=== PATIENT | female | born 1990 | race Caucasian/White ===

== ENCOUNTER → 2021-06-13 09:15 | Outpatient (CLI) | payer OTHER, SELFPAY ==
[2021-06-13 12:15] LABS: Absolute Lymphocyte Count 1.58 X10^3/uL (0.83-4.51); Absolute Neutrophil Count 1.9 X10^3/uL (2.0-7.7); Basophil# 0.04 X10^3/uL; Eosinophil# 0.07 X10^3/uL; Eosinophils% 1.8 % (0-5); Hematocrit 38.8 % (37-47); Hemoglobin 11.7 g/dL (12.0-15.0); Lymphocyte # 1.58 X10^3/ul (0.83-4.51); Lymphocyte % 39.6 % (19-41); Mean Corp Hgb Conc 30.2 g/dL (32-36); Mean Corpuscular Hgb 25.4 pg (27.0-32.0); Mean Corpuscular Volume 84.3 fL (81-99); Monocyte# 0.42 X10^3/uL; Monocyte% 10.5 % (0-10); NRBC Flagged by Analyzer 0 % (0-5); Neutrophil # 1.87 X10^3/uL (2.7-7.7); Neutrophil % 46.8 % (47-70); Platelet Count 273 K/mm3 (150-450); RBC Distribution Width CV 14.6 % (11.6-14.6); RBC Distribution Width SD 45.1 fl (35.1-43.9)
[2021-06-13 12:37] LABS: ALB/GLOB Ratio 1.2 RATIO (0.9-2.4); AST(SGOT) 16 U/L (15-37); Alanine Aminotransfer ALT/SGPT 26 U/L (13-56); Albumin, Serum 4.1 g/dL (3.2-5.0); Alkaline Phosphatase 67 U/L (45-117); Anion Gap 6 (5-15); BUN 12 mg/dL (7-18); BUN/Creat Ratio 17.8 RATIO (10-20); Calcium,Total 8.4 mg/dL (8.5-10.1); Chloride 106 mmol/L (98-107); Cholesterol 182 mg/dL (200); Creatinine, Serum 0.68 mg/dL (0.55-1.02); EST Glomerular Filtration Rate 110 mL/min (>60); Est Glom Filt Rate - Afr Amer 133 mL/min (>60); Globulin 3.4 g/dL (2.2-4.2); Glucose 88 mg/dL (74-106); High Density Lipoprotein 78 mg/dL; Potassium 4.3 mmol/L (3.5-5.1); Protein, Total 7.5 g/dL (6.4-8.2); Sodium Level 138 mmol/L (136-145); Triglycerides 33 mg/dL; Very Low Density Lipoprotein 7 mg/dL (5-40)
== END ==
PROVIDERS: PCP Internal Medicine; Referring Provider Internal Medicine; Visit Provider Internal Medicine
DX: Z00.00 Encounter for general adult medical examination without abnormal findings (principal)
CPT/HCPCS: 36415; 80053; 80061; 85025

== ENCOUNTER → 2022-04-25 | Outpatient (CLI) | payer OTHER, SELFPAY ==
[2022-04-25 12:39] LABS: Alanine Aminotransfer ALT/SGPT 20 U/L (13-56)
[2022-04-25 13:02] LABS: HIV - WCH Non-Reactive (Nonreactive); Hepatitis B Surface Antibody Non-Reactive; Hepatitis C Antibody Non-Reactive (Nonreactive)
== END | disposition home or self-care (01) ==
LOC: MTLAB 09:31
PROVIDERS: PCP Internal Medicine; Referring Provider Physician Assistant; Visit Provider Physician Assistant
DX: S61.231A Puncture wound without foreign body of left index finger without damage to nail, initial encounter (principal); W46.1XXA Contact with contaminated hypodermic needle, initial encounter
CPT/HCPCS: 36415; 84460; 86703; 86706; 86803

== ENCOUNTER → 2023-08-25 | Outpatient (CLI) | payer OTHER, SELFPAY ==
[2023-08-25 12:17] LABS: Absolute Lymphocyte Count 1.58 X10^3/uL (0.83-4.51); Absolute Neutrophil Count 2.5 X10^3/uL (2.0-7.7); Basophil# 0.04 X10^3/uL; Basophil% 0.9 % (0-1); Eosinophil# 0.06 X10^3/uL; Eosinophils% 1.3 % (0-5); Hematocrit 37.4 % (37-47); Hemoglobin 11.3 g/dL (12.0-15.0); Lymphocyte # 1.58 X10^3/ul (0.83-4.51); Lymphocyte % 34.1 % (19-41); Mean Corp Hgb Conc 30.2 g/dL (32-36); Mean Corpuscular Hgb 26.2 pg (27.0-32.0); Mean Corpuscular Volume 86.8 fL (81-99); Mean Platelet Vol. 11.1 fl (6.2-12.0); Monocyte# 0.43 X10^3/uL; Monocyte% 9.3 % (0-10); NRBC Flagged by Analyzer 0 % (0-5); Neutrophil # 2.52 X10^3/uL (2.7-7.7); Neutrophil % 54.2 % (47-70); Platelet Count 218 K/mm3 (150-450); RBC Distribution Width CV 14.4 % (11.6-14.6); RBC Distribution Width SD 45.9 fl (35.1-43.9); Red Blood Count 4.31 M/mm3 (4.2-5.4); White Blood Count 4.6 K/mm3 (4.4-11.0)
[2023-08-25 12:31] LABS: ALB/GLOB Ratio 1.1 RATIO (0.9-2.4); AST(SGOT) 16 U/L (15-37); Alanine Aminotransfer ALT/SGPT 20 U/L (13-56); Albumin, Serum 3.6 g/dL (3.2-5.0); Alkaline Phosphatase 63 U/L (45-117); Anion Gap 5 (5-15); BUN 10 mg/dL (7-18); BUN/Creat Ratio 13.5 RATIO (10-20); Calcium,Total 8.1 mg/dL (8.5-10.1); Chloride 107 mmol/L (98-107); Creatinine, Serum 0.74 mg/dL (0.55-1.02); EST Glomerular Filtration Rate 97 mL/min (>60); Est Glom Filt Rate - Afr Amer 118 mL/min (>60); Globulin 3.4 g/dL (2.2-4.2); Glucose 95 mg/dL (74-106); Sodium Level 140 mmol/L (136-145)
== END | disposition home or self-care (01) ==
LOC: BIMLAB 10:22
PROVIDERS: PCP Internal Medicine; Referring Provider Internal Medicine; Visit Provider Internal Medicine
DX: Z00.00 Encounter for general adult medical examination without abnormal findings (principal); E83.51 Hypocalcemia
CPT/HCPCS: 36415; 80053; 82306; 85025

== ENCOUNTER → 2023-12-03 | Outpatient (CLI) | payer OTHER, SELFPAY ==
[2023-12-09 11:09] LABS: HPV APTIMA, High Risk Negative (Negative)
== END | disposition home or self-care (01) ==
PROVIDERS: PCP Internal Medicine; Referring Provider Nurse Practitioner Women's Health; Visit Provider Nurse Practitioner Women's Health
DX: Z12.4 Encounter for screening for malignant neoplasm of cervix (principal)
CPT/HCPCS: 87624; 88175; G0145

== ENCOUNTER → 2024-08-27 | Outpatient (CLI) | payer SELFPAY ==
[2024-08-27 12:31] LABS: Absolute Lymphocyte Count 1.42 X10^3/uL (0.83-4.51); Absolute Neutrophil Count 4.7 X10^3/uL (2.0-7.7); Basophil# 0.04 X10^3/uL; Basophil% 0.6 % (0-1); Eosinophil# 0.06 X10^3/uL; Eosinophils% 0.9 % (0-5); Hematocrit 39.7 % (37-47); Hemoglobin 12.8 g/dL (12.0-15.0); Lymphocyte # 1.42 X10^3/ul (0.83-4.51); Lymphocyte % 20.7 % (19-41); Mean Corp Hgb Conc 32.2 g/dL (32-36); Mean Corpuscular Hgb 28.7 pg (27.0-32.0); Mean Platelet Vol. 11.2 fl (6.2-12.0); Monocyte# 0.59 X10^3/uL; Monocyte% 8.6 % (0-10); NRBC Flagged by Analyzer 0 % (0-5); Neutrophil % 68.6 % (47-70); Platelet Count 237 K/mm3 (150-450); RBC Distribution Width CV 13.2 % (11.6-14.6); RBC Distribution Width SD 43.2 fl (35.1-43.9); Red Blood Count 4.46 M/mm3 (4.2-5.4); White Blood Count 6.9 K/mm3 (4.4-11.0)
[2024-08-27 12:35] LABS: Anion Gap 6 (5-15); BUN 8 mg/dL (7-18); BUN/Creat Ratio 11.9 RATIO (10-20); Chloride 103 mmol/L (98-107); Creatinine, Serum 0.67 mg/dL (0.55-1.02); EST Glomerular Filtration Rate 108 mL/min (>60); Est Glom Filt Rate - Afr Amer 131 mL/min (>60); Glucose 87 mg/dL (74-106); Potassium 3.9 mmol/L (3.5-5.1); Sodium Level 136 mmol/L (136-145)
[2024-08-27 13:06] LABS: HIV - WCH Non-Reactive (Nonreactive); Hepatitis B Surface Antigen Non-Reactive (Nonreactive); Hepatitis C Antibody Non-Reactive (Nonreactive); Rubella IgG Reactive (Nonreactive); Syphilis Antibodies Non-reactive
[2024-08-30 21:07] LABS: Chlamydia By Nucleic Acid AMP Negative (Negative); Gonococcus By Nucleic Acid AMP Negative (Negative)
== END | disposition home or self-care (01) ==
LOC: BWCLAB 09:18
PROVIDERS: PCP Internal Medicine; Referring Provider Registered Nurse; Visit Provider Registered Nurse
DX: Z34.90 Encounter for supervision of normal pregnancy, unspecified, unspecified trimester (principal); Z3A.00 Weeks of gestation of pregnancy not specified
CPT/HCPCS: 36415; 80048; 85025; 86703; 86762; 86780; 86803; 86850; 86900; 86901; 87086; 87340; 87491; 87591

== ENCOUNTER → 2025-01-04 | Outpatient (CLI) | payer SELFPAY ==
[2025-01-04 17:04] LABS: Absolute Lymphocyte Count 1.46 X10^3/uL (0.83-4.51); Absolute Neutrophil Count 6.9 X10^3/uL (2.0-7.7); Basophil# 0.03 X10^3/uL; Basophil% 0.3 % (0-1); Eosinophil# 0.08 X10^3/uL; Eosinophils% 0.9 % (0-5); Hemoglobin 12.6 g/dL (12.0-15.0); Lymphocyte # 1.46 X10^3/ul (0.83-4.51); Mean Corp Hgb Conc 33.2 g/dL (32-36); Mean Corpuscular Hgb 30.6 pg (27.0-32.0); Mean Corpuscular Volume 92.2 fL (81-99); Mean Platelet Vol. 10.4 fl (6.2-12.0); Monocyte# 0.54 X10^3/uL; Monocyte% 5.9 % (0-10); NRBC Flagged by Analyzer 0 % (0-5); Neutrophil # 6.93 X10^3/uL (2.7-7.7); Neutrophil % 76.2 % (47-70); Platelet Count 224 K/mm3 (150-450); RBC Distribution Width CV 13.4 % (11.6-14.6); Red Blood Count 4.12 M/mm3 (4.2-5.4); White Blood Count 9.1 K/mm3 (4.4-11.0)
[2025-01-04 20:23] LABS: Glucose Challenge Gest 1H 50g 153 mg/dL (70-140); HIV Nonreactive (Nonreactive)
[2025-01-04 22:14] LABS: Syphilis Antibodies Nonreactive (Nonreactive)
== END | disposition home or self-care (01) ==
PROVIDERS: Obstetrics & Gynecology; PCP Internal Medicine; Referring Provider Nurse Practitioner Women's Health; Visit Provider Nurse Practitioner Women's Health
DX: Z34.90 Encounter for supervision of normal pregnancy, unspecified, unspecified trimester (principal)
CPT/HCPCS: 36415; 82950; 85025; 86703; 86780

== ENCOUNTER → 2025-01-11 | Outpatient (CLI) | payer SELFPAY ==
[2025-01-11 08:36] LABS: Glucose GTT-Gestation. Fasting 83 mg/dL (<105)
[2025-01-11 10:37] LABS: Glucose GTT-Gestational 1 Hr 211 mg/dL (<190)
[2025-01-11 12:45] LABS: Glucose GTT-Gestational 3 Hr 146 L (<145)
[2025-01-11 12:50] LABS: Glucose GTT-Gestational 2 Hr 113 mg/dL (<165)
== END | disposition home or self-care (01) ==
PROVIDERS: PCP Internal Medicine; Referring Provider Nurse Practitioner Women's Health; Visit Provider Nurse Practitioner Women's Health
DX: R73.09 Other abnormal glucose (principal)
CPT/HCPCS: 36415; 82951; 82952

== ENCOUNTER → 2025-03-08 | Outpatient (CLI) | payer SELFPAY | END | disposition home or self-care (01) | LOC: LABSPEC 11:44 | PROVIDERS: PCP Internal Medicine; Referring Provider Nurse Practitioner Women's Health; Visit Provider Nurse Practitioner Women's Health | DX: Z34.90 Encounter for supervision of normal pregnancy, unspecified, unspecified trimester (principal) | CPT/HCPCS: 87081 ==

== ENCOUNTER → 2025-03-09 | Outpatient (CLI) | payer SELFPAY ==
--- NOTE | 2025-03-09 13:26 | US_ITS ---
PROCEDURE: OB LIMITED WITH BIOMETRICS 03/09/2025 REASON FOR EXAM: 36 WK GROWTH TECHNIQUE: High resolution obstetric ultrasound performed using a 2D transducer. Standard views obtained, including biometry, anatomy survey, and Doppler studies. FINDINGS Number: 1 Position: Vertex Placental Position: Fundal and left lateral. Not low-lying. Placental Abnormalities: None DIMENSIONS: Biparietal Diameter: 8.73 cm: 35 weeks and 2 days: 34 percentile/ Head Circumference: 33.07 cm: 37 weeks and 5 days: 58 percentile/ Abdominal Circumference: 33.39 cm: 37 weeks and 2 days: 87 percentile/ Femur Length: 6.68 cm: 34 weeks and 3 days: 9 percentile/ ESTIMATED WEIGHT: 2903 g plus/-435 g ESTIMATED WEIGHT PERCENTILE (24+ weeks): 56 percentile ESTIMATED GESTATIONAL AGE: Baseline: 36 weeks and 1 day By Ultrasound: 36 weeks and 2 days ESTIMATED DATE OF DELIVERY: Baseline: April 05, 2025 By Ultrasound: April 04, 2025 BIOPHYSICAL ASSESSMENT: Amniotic Fluid Volume: 3.6 cm Amniotic Fluid Index: 12.3 (8-24 cm normal range) Cardiac Motion: 144 beats per minute (average) Trunk and Limb Motion: Present. MATERNAL ANATOMY: Adnexa: Neither maternal ovary is successfully identified. US/OB Limited With Biometrics IMPRESSION: Single live intrauterine gestation with a mean gestational age of 36 weeks and 2 days. Reading Location: [id number]
== END | disposition home or self-care (01) ==
PROVIDERS: PCP Internal Medicine; Referring Provider Obstetrics & Gynecology; Visit Provider Obstetrics & Gynecology
DX: O24.419 Gestational diabetes mellitus in pregnancy, unspecified control (principal); Z3A.36 36 weeks gestation of pregnancy
CPT/HCPCS: 76816

== ENCOUNTER 2025-03-31 19:09 | Inpatient (IN) | payer SELFPAY ==
[2025-03-31 19:10] VITALS: BMI 24.3
--- OUTSIDE RECORDS SUMMARY | 2025-03-31 19:26 | XMS RPT_ITS | CCD ---
Author Organization [facility] CliniSyut Care Team Providers Care Post Commander Name Role Phone LIANNA TOUSSAINT Unavailable Unavailable RAFFAELE PINEDA JR. Unavailable Unavailable Dr. Luigi Santos Primary Care Provider [phone] Dr. Luigi Santos Referring Provider [phone] CARMINE Bright Attending Provider Dr. Luigi Santos Attending Provider [phone] VANESSA Mason Attending Provider Unavailable JANA NICOLE Referring Unavailab JANA Luciano Attending Unavailab LUIGI Ramirez Primary Care Unavailable Dr. Luigi Santos MD Primary Care Provider Dr. Luigi Santos MD Referring Provider [phone] Dr. Jana Santiago DO Attending Provider Talia Loredo CNM Attending Provider Dr. Marie Dockery MD Attending Provider Bright HARMON-Martha Villatoro Attending Provider [phone] Bright HARMON-CMartha Referring Provider [phone] Dr. Luigi Santos MD Primary Care Provider Dr. Luigi Santos MD Referring Provider [phone] Dr. Jana Santiago DO Attending Provider Talia Loredo CNM Attending Provider [phone] Dr. Jana Santiago DO Referring Provider Oleghe MD, Dr. Meyers Primary Care Provider Danielle YUN, Dr. Meyers Referring Provider Dr. Jana Santiago DO Attending Provider Rylee Bledsoe Attending Unavailable Oleghe, Efewongbe Primary Care Unavailable Oleghe, Efewongbe Referring Unavailable Oleghe, Efewongbe Primary Care Unavailable Jana Santiago Attending Unavailabl e Oleghe, Efewongbe Referring Unavailable Bright MANAGER DIALYSISMartha Attending Unavailable Oleghe, Efewongbe Primary Care Unavailable Oleghe, Efewongbe Primary Care Unavailable Oleghe, Efewongbe Referring Unavailable Jana Santiago Attending Unavailabl e Oleghe, Efewongbe Referring Unavailable Oleghe, Efewongbe Primary Care Unavailable Marie Dockery Attending Unavailable Oleghe, Efewongbe Referring Unavailable Oleghe, Efewongbe Primary Care Unavailable Marie Dockery Attending Unavailable Oleghe, Efewongbe Referring Unavailable Oleghe, Efewongbe Primary Care Unavailable Talia Loredo Attending Unavailable Jana Santiago Attending Unavailabl e Oleghe, Efewongbe Referring Unavailable Oleghe, Efewongbe Primary Care Unavailable Oleghe, Efewongbe Primary Care Unavailable Oleghe, Efewongbe Referring Unavailable Jana Santiago Attending Unavailabl e Oleghe, Efewongbe Primary Care Unavailable Oleghe, Efewongbe Referring Unavailable Jana Santiago Attending Unavailabl e Oleghe, Efewongbe Primary Care Unavailable Oleghe, Efewongbe Referring Unavailable Marie Dockery Attending Unavailable Oleghe, Efewongbe Primary Care Unavailable [place] MANAGER DIALYSIS, Martha Referring Unavailable [place] MANAGER DIALYSISMartha Attending Unavailable Oleghe, Efewongbe Primary Care Unavailable Oleghe, Efewongbe Referring Unavailable Talia Loredo Attending Unavailable Sherri Carvalho Attending Unavailable Oleghe, Efewongbe Primary Care Unavailable Oleghe, Efewongbe Referring Unavailable Oleghe, Efewongbe Primary Care Unavailable [place] MANAGER DIALYSIS, Martha Referring Unavailable [place] MANAGER DIALYSIS, Martha Attending Unavailable Vande Velde, Jana Attending Unavailestrella e Jana Santiago Referring Unavailabl e Olebethe, Efewongbe Primary Care Unavailable Olee, Efewongbe Primary Care Unavailable Bright HARMON, Martha Referring Unavailable Martha Novoa NP Attending Unavailable Sherri Carvalho Referring Unavailable Sherri Carvalho Attending Unavailable Oleghe, Efewongbe Primary Care Unavailable Olee, Efewongbe Primary Care Unavailable Jana Santiago Admitting UnavailJana Reno Attending Unavailabl e Medications Current Medications Medication Drug Class(es) Dates Sig (Normalized) Sig (Original) Blood-Glucose Meter misc (8 sources) Start: 01-12-2025 Blood-Glucose Meter misc Active 0 .MEDSUPPLY January 12, 2025 12:00am As directed- Test fasting and 2 hours after meals calcium carbonate 1500 mg oral tablet (10 sources) Start: 08-26-2023 take 1 tablet by mouth once daily Calcium Carbonate 600 mg calcium (1,500 mg) tablet Active 600 mg PO DAILY August 26, 2023 1:00am Vit No.[id number]-[id number] (Classic ) 28 mg iron- 800 mcg tablet (9 sources) Start: 08-10-2024 Vit No.964-Olzf-Liyjr (Classic ) 28 mg iron- 800 mcg tablet Active {tbl} PO August 10, 2024 12:00am Completed/Discontinued Medications Medication Drug Class(es) Dates Sig (Normalized) Sig (Original) cholecalciferol 0.05 mg oral capsule (10 sources) Vitamin D Start: 08-26-2023 End: 08-10-2024 take 1 capsule by mouth once daily Cholecalciferol (Vitamin D3) 50 mcg (2,000 unit) capsule Discontinued 50 ug PO DAILY August 26, 2023 1:00am August 10, 2024 10:52am 21 day ethinyl estradiol 0.772957 mg/hr / etonogestrel 0.005 mg/hr vaginal system (9 sources) Progestin, Estrogen Start: 12-03-2023 End: 08-10-2024 Etonogestrel-Ethinyl Estradiol (Nuvaring) 0.12-0.015 mg/24 hr ring Discontinued 1 NMA VAGINAL every 4 weeks December 03, 2023 1:00am August 10, 2024 10:52am Problems Active Problems Problem Classification Problem Date Documented Da te Episodic/Chronic Diabetes mellitus without complication (20 sources) Abnormal glucose level; Translations: [Other abnormal glucose] Onset: 02-08-2025 01-05-2025 Episodic Diabetes or abnormal glucose tolerance complicating ; childbirth; or the puerperium (20 sources) Gestational diabetes mellitus; Translations: [Gestational diabetes mellitus in , unspecified control] Onset: 03-14-2025 01-11-2025 Episodic Comment on above: diet ocntrolled, chelita wth US at 36 diet ocntrolled, chelita wth US at 36 discussed IOL by 39-40 E Codes: Cut/pierceb (10 sources) Contact with contaminated hypodermic needle, initial encounter; Translations: [Accidental needlestick injury with exposure to body fluid] 04-25-2022 Episodic Immunizations and screening for infectious disease (2 sources) Patient encounter status; Translations: [Encounter for screening for COVID-19] Onset: 01-11-2025 02-14-2022 Episodic Open wounds of extremities (1 source) Puncture wound of index finger of left hand; Translations: [Puncture wound without foreign body of left index finger without damage to nail, initial encounter] 04-25-2022 Episodic Other nutritional; endocrine; and metabolic disorders (20 sources) Hypocalcemia; Translations: [Hypocalcemia] 08-25-2023 Chronic Comment on above: BMP checked with NOB labs Other nutritional; endocrine; and metabolic disorders (1 source) Hypocalcemia; Translations: [Hypocalcemia] Onset: 03-17-2025 Chronic Other and delivery including normal (20 sources) Normal ; Translations: [Encounter for supervision of normal , unspecified, unspecified trimester] Onset: 03-17-2025 12-16-2024 Episodic Comment on above: PRR . , ALDAIR 04/05, surprise : Miki Discussed genetic/ca rrier testing - declines. decline afp. normal anatomy Neg GBS. Discussed g enetic/carrier testing - declines. decline afp. normal anatomy Residual codes; unclassified (1 source) 37 weeks gestation of ; Translations: [37 weeks gestation of ] Onset: 03-17-2025 Episodic Residual codes; unclassified (1 source) 32 weeks gestation of ; Translations: [32 weeks gestation of ] Onset: 02-08-2025 Episodic Viral infection (11 sources) Disease caused by 2019-nCoV; Translations: [COVID-19] 05-19-2023 Episodic Past or Other Problems Problem Classification Problem Date Documented Da te Episodic/Chronic Medical examination/evaluation (2 sources) Encounter for general adult medical examination without abnormal findings; Translations: [Encounter for general adult medical examination without abnormal findings] Onset: 06-13-2017 Episodic Residual codes; unclassified (1 source) 24 weeks gestation of ; Translations: [24 weeks gestation of ] Onset: 12-16-2024 Episodic Residual codes; unclassified (1 source) 20 weeks gestation of ; Translations: [20 weeks gestation of ] Onset: 11-18-2024 Episodic Residual codes; unclassified (1 source) 16 weeks gestation of ; Translations: [16 weeks gestation of ] Onset: 10-21-2024 Episodic Residual codes; unclassified (1 source) 12 weeks gestation of ; Translations: [12 weeks gestation of ] Onset: 09-24-2024 Episodic Residual codes; unclassified (1 source) 8 weeks gestation of ; Translations: [8 weeks gestation of ] Onset: 08-27-2024 Episodic Results Test Name Value Interpretation Reference Range Facility Laboratory - Chemistry and C hemistry - challengeOrdered By: Jana Roman on 03-25-2025 Glucose Ql (U) Negative [facility] Laboratory - UrinalysisOrder ed By: Jana Roman on 03-25-2025 Protein Ql (U) Negative [facility] Market Research Associate Office Visit Reporton 03-25-2025 Market Research Associate Office Visit Report [facility] [address], [address] [place] [address] OFFICE VISIT Date of Service: 03/25/25 MR#: [id number] Acct: [id number] Name: PATRICIA PERSON Rep #: [id number] : 1990 Provider: Dr. Jana Peck DO Age/Sex: 34/F Location: [facility] Status: Signed Intake Vital Signs 10/21/24 15:57 03/17/25 09:21 03/25/25 13:03 Height 5 ft 6 in 5 ft 6 in 5 ft 6 in Weight: 153 lb 2 oz BMI 24.7 BP 125/75 H Intake Visit Reasons: 38 WK OB Giving Officer Required: No Is patient in pain?: No Allergies No Known Allergies Allergy (Verified 03/25/25 13:03) Medications ???Medication ???Instructions ???Recorded ???Confirmed ???Type calcium carbonate 600 mg PO DAILY 08/26/23 03/25/25 History vits no.126-ferrous fum tab PO 08/10/24 03/25/25 History 28 mg iron-folic acid 800 mcg tablet (Classic ) blood sugar diagnostic (Blood #120 ea 01/12/25 03/25/25 Rx Glucose Test strips) blood-glucose meter #1 ea 01/12/25 03/25/25 Rx lancets #200 ea 01/12/25 03/25/25 Rx Last Menstrual Period: 06/29/24 Zika: Zika virus screening: Negative : No PFSH PFSH Medical History Hypocalcemia Surgical History H/O wisdom tooth extraction Family History Other Celiac disease Diabetes Heart disease Social History adopted: No household members: spouse 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 occupational 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: No pets and animals: Yes history of recent travel: Yes ([place], [place], [place], [place] (May 2024)) details: [place] (Summer 2023), [place] (Jun 2024) out of state: Yes out of country: Yes sexually active: Yes Smoking Status: Never smoker alcohol intake: never substance use type: does not use well-balanced diet: daily or most days caffeine: No eating out: rarely or never during the past year weight has: remained stable what type of physical activity do you participate in: none bj/synagogue: Evangelical seatbelt use: always do you feel safe at home: Yes 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 OB Visit ALDAIR Calculator Estimated Delivery Date Method Current WG Current Estimate 04/05/25 LMP (Certain) 38w 3d Expected Delivery Route/Plan Labor Preferences- CB/BF classes: [] labor support person: miki labor intervention preferences: [] pain management options preferred: epidural cut cord/dad catch: probably not : yes PP control planned: [] discussed possible routes of delivery and associated risks: [] special requests: [] Specific Issue/Plans Covid status: [] Flu vaccine: [] Tdap vaccine: given Rhogam: na LARC form signed: declines movement and labor precautions reviewed. Problem list reviewed and updated with the most current plan of care details and appropriate orders placed. Relevant counseling for the gestational age provided. Continue routine care and follow up unless otherwise noted in visit notes/problem list details Initial Weight: Not Recorded Date -???-???-???-???-?? ?-???-???-???-???-? ??-???-???- EGA Weight BP Urine Prot -???-???-???-???-?? ?-???-???-???-???-? ??-???-???- Glucose FHR FuHt Pres Dilation -???-???-???-???-?? ?-???-???-???-???-? ??-???-???- Effaced St Visit Note 08/27/24 -???-???-???-???-?? ?-???-???-???-???-? ??-???-???- 8w 3d 137 lb (+0 oz) 133/77 -???-???-???-???-?? ?-???-???-???-???-? ??-???-???- 171 -???-???-???-???-?? ?-???-???-???-???-? ??-???-???- LC- CRL 1.8 con with LMP. declines nipt. BMP ordered for hypocalemia. 09/24/24 -???-???-???-???-?? ?-???-???-???-???-? ??-???-???- 12w 3d 138 lb (+0 oz) 131/73 Negative -???-???-???-???-?? ?-???-???-???-???-? ??-???-???- Negative 157 -???-???-???-???-?? ?-???-???-???-???-? ??-???-???- JV- no compl aints today. declines NIPT. 10/21/24 -???-???-???-???-?? ?-???-???-???-???-? ??-???-???- 16w 2d 140 lb (+0 oz) 121/63 Negative -???-???-???-???-?? ?-???-???-???-???-? ??-???-???- Negative 145 -???-???-???-???-?? ?-???-???-???-???-? ??-???-???- KW- no vb/cr amping. US scheduled. no concerns 11/18/24 -???-???-???-???-?? ?-???-???-???-???-? ??-???-???- 20w 2d 144 lb 4 oz (+0 oz) 123/71 Negative -???-???-???- (more content not included)... Normal [facility] Laboratory - Chemistry and C hemistry - challengeOrdered By: Marie Dockery on 03-17-2025 Glucose Ql (U) Negative [facility] Laboratory - UrinalysisOrder ed By: Marie Dockery on 03-17-2025 Protein Ql (U) Negative [facility] Market Research Associate Office Visit Reporton 03-17-2025 Market Research Associate Office Visit Report [facility] [address], [address] [place] [address] OFFICE VISIT Date of Service: 03/17/25 MR#: [id number] Acct: [id number] Name: PATRICIA PERSON Rep #: [id number] : 1990 Provider: Dr. Marie treadwell MD Age/Sex: 34/F Location: [facility] Status: Signed Intake Vital Signs 10/21/24 15:57 03/08/25 09:57 03/17/25 09:20 03/17/25 09:21 Height 5 ft 6 in 5 ft 6 in 5 ft 6 in 5 ft 6 in Weight: 154 lb BMI 24.8 BP 131/74 H Intake Visit Reasons: 37 WK OB Giving Officer Required: No Is patient in pain?: No Allergies No Known Allergies Allergy (Verified 03/17/25 09:19) Medications ???Medication ???Instructions ???Recorded ???Confirmed ???Type calcium carbonate 600 mg PO DAILY 08/26/23 03/17/25 History vits no.126-ferrous fum tab PO 08/10/24 03/17/25 History 28 mg iron-folic acid 800 mcg tablet (Classic ) blood sugar diagnostic (Blood #120 ea 01/12/25 03/17/25 Rx Glucose Test strips) blood-glucose meter #1 ea 01/12/25 03/17/25 Rx lancets #200 ea 01/12/25 03/17/25 Rx Last Menstrual Period: 06/29/24 Zika: Zika virus screening: Negative : No PFSH PFSH Medical History Hypocalcemia Surgical History H/O wisdom tooth extraction Family History Other Celiac disease Diabetes Heart disease Social History adopted: No household members: spouse 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 occupational 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: No pets and animals: Yes history of recent travel: Yes ([place], [place], [place], [place] (May 2024)) details: [place] (Summer 2023), [place] (Jun 2024) out of state: Yes out of country: Yes sexually active: Yes Smoking Status: Never smoker alcohol intake: never substance use type: does not use well-balanced diet: daily or most days caffeine: No eating out: rarely or never during the past year weight has: remained stable what type of physical activity do you participate in: none bj/synagogue: Evangelical seatbelt use: always do you feel safe at home: Yes 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 OB Visit ALDAIR Calculator Estimated Delivery Date Method Current WG Current Estimate 04/05/25 LMP (Certain) 37w 2d Expected Delivery Route/Plan Labor Preferences- CB/BF classes: [] labor support person: miki labor intervention preferences: [] pain management options preferred: epidural cut cord/dad catch: probably not : yes PP control planned: [] discussed possible routes of delivery and associated risks: [] special requests: [] Specific Issue/Plans Covid status: [] Flu vaccine: [] Tdap vaccine: given Rhogam: na LARC form signed: declines movement and labor precautions reviewed. Problem list reviewed and updated with the most current plan of care details and appropriate orders placed. Relevant counseling for the gestational age provided. Continue routine care and follow up unless otherwise noted in visit notes/problem list details Initial Weight: Not Recorded Date -???-???-???-???-?? ?-???-???-???-???-? ??-???-???- EGA Weight BP Urine Prot -???-???-???-???-?? ?-???-???-???-???-? ??-???-???- Glucose FHR FuHt Pres Dilation -???-???-???-???-?? ?-???-???-???-???-? ??-???-???- Effaced St Visit Note 08/27/24 -???-???-???-???-?? ?-???-???-???-???-? ??-???-???- 8w 3d 137 lb (+0 oz) 133/77 -???-???-???-???-?? ?-???-???-???-???-? ??-???-???- 171 -???-???-???-???-?? ?-???-???-???-???-? ??-???-???- LC- CRL 1.8 con with LMP. declines nipt. BMP ordered for hypocalemia. 09/24/24 -???-???-???-???-?? ?-???-???-???-???-? ??-???-???- 12w 3d 138 lb (+0 oz) 131/73 Negative -???-???-???-???-?? ?-???-???-???-???-? ??-???-???- Negative 157 -???-???-???-???-?? ?-???-???-???-???-? ??-???-???- JV- no compl aints today. declines NIPT. 10/21/24 -???-???-???-???-?? ?-???-???-???-???-? ??-???-???- 16w 2d 140 lb (+0 oz) 121/63 Negative -???-???-???-???-?? ?-???-???-???-???-? ??-???-???- Negative 145 -???-???-???-???-?? ?-???-???-???-???-? ??-???-???- KW- no vb/cr amping. US scheduled. no concerns 11/18/24 -???-???-???-???-?? ?-???-???-???-???-? ??-???-???- 20w 2d 144 lb 4 oz (+0 oz) 123 (more content not included)... Normal [facility] Rule out Beta Strep (Grp. B) on 03-10-2025 SIA Group B Beta Streptococcus is not isolated. Normal [facility] Comment on above: Performed By: #### M [id number] ####[facility] [id number] [facility] [place], [place], [address] OB Limited With Biometricson 03-09-2025 OB Limited With Biometrics [facility] [address] [place], [place] [address] OB Limited With Biometrics MR#: [id number] Acct: [id number] Name: PATRICIA PERSON Rep #: [id number] : 1990 F 34 From: Erasmo sanchez MD PCP: Dr. Luigi Santos MD Status: [facility] Study: OB Limited With Biometrics Date of Exam: 03/09 Exam# [id number] Ordering Dr: Jana Santiago DO PROCEDURE: OB LIMITED WITH BIOMETRICS 03/09/2025 REASON FOR EXAM: 36 WK GROWTH TECHNIQUE: High resolution obstetric ultrasound performed using a 2D transducer. Standard views obtained, including biometry, anatomy survey, and Doppler studies. FINDINGS Number: 1 Position: Vertex Placental Position: Fundal and left lateral. Not low-lying. Placental Abnormalities: None DIMENSIONS: Biparietal Diameter: 8.73 cm: 35 weeks and 2 days: 34 percentile/ Head Circumference: 33.07 cm: 37 weeks and 5 days: 58 percentile/ Abdominal Circumference: 33.39 cm: 37 weeks and 2 days: 87 percentile/ Femur Length: 6.68 cm: 34 weeks and 3 days: 9 percentile/ ESTIMATED WEIGHT: 2903 g plus/-435 g ESTIMATED WEIGHT PERCENTILE (24+ weeks): 56 percentile ESTIMATED GESTATIONAL AGE: Baseline: 36 weeks and 1 day By Ultrasound: 36 weeks and 2 days ESTIMATED DATE OF DELIVERY: Baseline: April 05, 2025 By Ultrasound: April 04, 2025 BIOPHYSICAL ASSESSMENT: Amniotic Fluid Volume: 3.6 cm Amniotic Fluid Index: 12.3 (8-24 cm normal range) Cardiac Motion: 144 beats per minute (average) Trunk and Limb Motion: Present. MATERNAL ANATOMY: Adnexa: Neither maternal ovary is successfully identified. US/OB Limited With Biometrics IMPRESSION: Single live intrauterine gestation with a mean gestational age of 36 weeks and 2 days. Reading Location: [id number] CC: Dr. Luigi Santos MD; Dr. Jana Santiago DO Data Conversion Analyst: Signed Normal [facility] Laboratory - Chemistry and C hemistry - challengeOrdered By: Martha Novoa on 03-08-2025 Glucose Ql (U) Negative [facility] Laboratory - UrinalysisOrder ed By: Martha Novoa on 03-08-2025 Protein Ql (U) Negative [facility] Market Research Associate Office Visit Reporton 03-08-2025 Market Research Associate Office Visit Report [facility] [address], [address] [place] [address] OFFICE VISIT Date of Service: 03/08/25 MR#: [id number] Acct: [id number] Name: PATRICIA PERSON Rep #: [id number] : 1990 Provider: PADMINI hanson Age/Sex: 34/F Location: [facility] Status: Signed Intake Vital Signs 10/21/24 15:57 02/25/25 15:10 03/08/25 09:57 Height 5 ft 6 in 5 ft 6 in 5 ft 6 in Weight: 151 lb 6 oz BMI 24.4 BP 112/68 Intake Visit Reasons: 36 WK OB Chief Complaint: 36 Week OB Giving Officer Required: No Is patient in pain?: No Allergies No Known Allergies Allergy (Verified 03/08/25 09:57) Medications ???Medication ???Instructions ???Recorded ???Confirmed ???Type calcium carbonate 600 mg PO DAILY 08/26/23 03/08/25 History vits no.126-ferrous fum tab PO 08/10/24 03/08/25 History 28 mg iron-folic acid 800 mcg tablet (Classic ) blood sugar diagnostic (Blood #120 ea 01/12/25 03/08/25 Rx Glucose Test strips) blood-glucose meter #1 ea 01/12/25 03/08/25 Rx lancets #200 ea 01/12/25 03/08/25 Rx Last Menstrual Period: 06/29/24 Zika: Zika virus screening: Negative : No PFSH PFSH Medical History Hypocalcemia Surgical History H/O wisdom tooth extraction Family History Other Celiac disease Diabetes Heart disease Social History adopted: No household members: spouse 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 occupational 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: No pets and animals: Yes history of recent travel: Yes ([place], [place], [place], [place] (May 2024)) details: [place] (Summer 2023), [place] (Jun 2024) out of state: Yes out of country: Yes sexually active: Yes Smoking Status: Never smoker alcohol intake: never substance use type: does not use well-balanced diet: daily or most days caffeine: No eating out: rarely or never during the past year weight has: remained stable what type of physical activity do you participate in: none bj/synagogue: Evangelical seatbelt use: always do you feel safe at home: Yes 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 OB Visit ALDAIR Calculator Estimated Delivery Date Method Current WG Current Estimate 04/05/25 LMP (Certain) 36w 0d Expected Delivery Route/Plan Labor Preferences- CB/BF classes: [] labor support person: [] labor intervention preferences: [] pain management options preferred: [] cut cord/dad catch: [] : [] PP control planned: [] discussed possible routes of delivery and associated risks: [] special requests: [] Specific Issue/Plans Covid status: [] Flu vaccine: [] Tdap vaccine: [] Rhogam: [] LARC form signed: [] Problem list reviewed and updated with the most current plan of care details and appropriate orders placed. Relevant counseling for the gestational age provided. Continue routine care and follow up unless otherwise noted in visit notes/problem list details Initial Weight: Not Recorded Date -???-???-???-???-?? ?-???-???-???-???-? ??-???-???- EGA Weight BP Urine Prot -???-???-???-???-?? ?-???-???-???-???-? ??-???-???- Glucose FHR FuHt Pres Dilation -???-???-???-???-?? ?-???-???-???-???-? ??-???-???- Effaced St Visit Note 08/27/24 -???-???-???-???-?? ?-???-???-???-???-? ??-???-???- 8w 3d 137 lb (+0 oz) 133/77 -???-???-???-???-?? ?-???-???-???-???-? ??-???-???- 171 -???-???-???-???-?? ?-???-???-???-???-? ??-???-???- LC- CRL 1.8 con with LMP. declines nipt. BMP ordered for hypocalemia. 09/24/24 -???-???-???-???-?? ?-???-???-???-???-? ??-???-???- 12w 3d 138 lb (+0 oz) 131/73 Negative -???-???-???-???-?? ?-???-???-???-???-? ??-???-???- Negative 157 -???-???-???-???-?? ?-???-???-???-???-? ??-???-???- JV- no compl aints today. declines NIPT. 10/21/24 -???-???-???-???-?? ?-???-???-???-???-? ??-???-???- 16w 2d 140 lb (+0 oz) 121/63 Negative -???-???-???-???-?? ?-???-???-???-???-? ??-???-???- Negative 145 -???-???-???-???-?? ?-???-???-???-???-? ??-???-???- KW- no vb/cr amping. US scheduled. no concerns 11/18/24 -???-???-???-???-?? ?-???-???-???-???-? ??-???-???- 20w 2d 144 lb 4 oz (+0 oz) 123/71 Negative -???-???-???-???-?? ?-???-???-???-???-? ??-???-???- Negative 1 (more content not included)... Normal [facility] Screening beta-hemolytic Str eptococcus cultureOrdered By: Martha Novoa on 03-08-2025 Beta-hemolytic Streptococcus culture Group B Beta Streptococcus is not isolated. [facility] Laboratory - Chemistry and C hemistry - challengeOrdered By: Jana Roman on 02-25-2025 Glucose Ql (U) Negative [facility] Laboratory - UrinalysisOrder ed By: Jana Roman on 02-25-2025 Protein Ql (U) Negative [facility] Market Research Associate Office Visit Reporton 02-25-2025 Market Research Associate Office Visit Report [facility]'[address], [address] [place] [address] OFFICE VISIT Date of Service: 02/25/25 MR#: [id number] Acct: [id number] Name: PATRICIA PERSON Rep #: [id number] : 1990 Provider: Dr. Jana Peck DO Age/Sex: 34/F Location: [facility] Status: Signed Intake Vital Signs 10/21/24 15:57 02/08/25 13:57 02/25/25 15:08 02/25/25 15:10 Height 5 ft 6 in 5 ft 6 in 5 ft 6 in 5 ft 6 in Weight: 152 lb 2 oz BMI 24.5 BP 115/71 Intake Visit Reasons: 34 WK OB Giving Officer Required: No Is patient in pain?: No Allergies No Known Allergies Allergy (Verified 02/25/25 15:07) Medications ???Medication ???Instructions ???Recorded ???Confirmed ???Type calcium carbonate 600 mg PO DAILY 08/26/23 02/25/25 History vits no.126-ferrous fum tab PO 08/10/24 02/25/25 History 28 mg iron-folic acid 800 mcg tablet (Classic ) blood sugar diagnostic (Blood #120 ea 01/12/25 02/25/25 Rx Glucose Test strips) blood-glucose meter #1 ea 01/12/25 02/25/25 Rx lancets #200 ea 01/12/25 02/25/25 Rx Last Menstrual Period: 06/29/24 Zika: Zika virus screening: Negative : No PFSH PFSH Medical History Hypocalcemia Surgical History H/O wisdom tooth extraction Family History Other Celiac disease Diabetes Heart disease Social History adopted: No household members: spouse 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 occupational 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: No pets and animals: Yes history of recent travel: Yes ([place], [place], [place], [place] (May 2024)) details: [place] (Summer 2023), [place] (Jun 2024) out of state: Yes out of country: Yes sexually active: Yes Smoking Status: Never smoker alcohol intake: never substance use type: does not use well-balanced diet: daily or most days caffeine: No eating out: rarely or never during the past year weight has: remained stable what type of physical activity do you participate in: none bj/synagogue: Evangelical seatbelt use: always do you feel safe at home: Yes 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 OB Visit ALDAIR Calculator Estimated Delivery Date Method Current WG Current Estimate 04/05/25 LMP (Certain) 34w 3d Expected Delivery Route/Plan Labor Preferences- CB/BF classes: [] labor support person: [] labor intervention preferences: [] pain management options preferred: [] cut cord/dad catch: [] : [] PP control planned: [] discussed possible routes of delivery and associated risks: [] special requests: [] Specific Issue/Plans Covid status: [] Flu vaccine: [] Tdap vaccine: [] Rhogam: [] LARC form signed: [] Problem list reviewed and updated with the most current plan of care details and appropriate orders placed. Relevant counseling for the gestational age provided. Continue routine care and follow up unless otherwise noted in visit notes/problem list details Initial Weight: Not Recorded Date -???-???-???-???-?? ?-???-???-???-???-? ??-???-???- EGA Weight BP Urine Prot -???-???-???-???-?? ?-???-???-???-???-? ??-???-???- Glucose FHR FuHt Pres Dilation -???-???-???-???-?? ?-???-???-???-???-? ??-???-???- Effaced St Visit Note 08/27/24 -???-???-???-???-?? ?-???-???-???-???-? ??-???-???- 8w 3d 137 lb (+0 oz) 133/77 -???-???-???-???-?? ?-???-???-???-???-? ??-???-???- 171 -???-???-???-???-?? ?-???-???-???-???-? ??-???-???- LC- CRL 1.8 con with LMP. declines nipt. BMP ordered for hypocalemia. 09/24/24 -???-???-???-???-?? ?-???-???-???-???-? ??-???-???- 12w 3d 138 lb (+0 oz) 131/73 Negative -???-???-???-???-?? ?-???-???-???-???-? ??-???-???- Negative 157 -???-???-???-???-?? ?-???-???-???-???-? ??-???-???- JV- no compl aints today. declines NIPT. 10/21/24 -???-???-???-???-?? ?-???-???-???-???-? ??-???-???- 16w 2d 140 lb (+0 oz) 121/63 Negative -???-???-???-???-?? ?-???-???-???-???-? ??-???-???- Negative 145 -???-???-???-???-?? ?-???-???-???-???-? ??-???-???- KW- no vb/cr amping. US scheduled. no concerns 11/18/24 -???-???-???-???-?? ?-???-???-???-???-? ??-???-???- 20w 2d 144 lb 4 oz (+0 oz) 123/71 Negative -???-???-???-???-?? ?-???-???-???-???-? ??-???-???- Negative (more content not included)... Normal [facility] Laboratory - Chemistry and C hemistry - challengeOrdered By: Talia Loredo on 02-08-2025 Glucose Ql (U) Negative [facility] Laboratory - UrinalysisOrder ed By: Talia Loredo on 02-08-2025 Protein Ql (U) Negative [facility] Market Research Associate Office Visit Reporton 02-08-2025 Market Research Associate Office Visit Report [facility] [address] [place] [address], [address] [place] [address] OFFICE VISIT Date of Service: 02/08/25 MR#: [id number] Acct: [id number] Name: PATRICIA PERSON Rep #: [id number] : 1990 Provider: AARON Herrera ams Age/Sex: 34/F Location: [facility] Status: Signed Intake Vital Signs 10/21/24 15:57 01/28/25 14:55 02/08/25 13:57 Height 5 ft 6 in 5 ft 6 in 5 ft 6 in Weight: 149 lb 9 oz BMI 24.1 BP 126/72 H Intake Visit Reasons: 34 WK OB Chief Complaint: 32wk OB Giving Officer Required: No Is patient in pain?: No Allergies No Known Allergies Allergy (Verified 02/08/25 13:55) Medications ???Medication ???Instructions ???Recorded ???Confirmed ???Type calcium carbonate 600 mg PO DAILY 08/26/23 02/08/25 History vits no.126-ferrous fum tab PO 08/10/24 02/08/25 History 28 mg iron-folic acid 800 mcg tablet (Classic ) blood sugar diagnostic (Blood #120 ea 01/12/25 02/08/25 Rx Glucose Test strips) blood-glucose meter #1 ea 01/12/25 02/08/25 Rx lancets #200 ea 01/12/25 02/08/25 Rx Last Menstrual Period: 06/29/24 : No Have you fallen in the past year?: No PFSH PFSH Medical History Hypocalcemia Surgical History H/O wisdom tooth extraction Family History Other Celiac disease Diabetes Heart disease Social History adopted: No household members: spouse 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 occupational 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: No pets and animals: Yes history of recent travel: Yes ([place], [place], [place], [place] (May 2024)) details: [place] (Summer 2023), [place] (Jun 2024) out of state: Yes out of country: Yes sexually active: Yes Smoking Status: Never smoker alcohol intake: never substance use type: does not use well-balanced diet: daily or most days caffeine: No eating out: rarely or never during the past year weight has: remained stable what type of physical activity do you participate in: none bj/synagogue: Evangelical seatbelt use: always do you feel safe at home: Yes 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 OB Visit ALDAIR Calculator Estimated Delivery Date Method Current WG Current Estimate 04/05/25 LMP (Certain) 32w 0d Expected Delivery Route/Plan Labor Preferences- CB/BF classes: [] labor support person: [] labor intervention preferences: [] pain management options preferred: [] cut cord/dad catch: [] : [] PP control planned: [] discussed possible routes of delivery and associated risks: [] special requests: [] Specific Issue/Plans Covid status: [] Flu vaccine: [] Tdap vaccine: [] Rhogam: [] LARC form signed: [] Problem list reviewed and updated with the most current plan of care details and appropriate orders placed. Relevant counseling for the gestational age provided. Continue routine care and follow up unless otherwise noted in visit notes/problem list details Initial Weight: Not Recorded Date -???-???-???-???-?? ?-???-???-???-???-? ??-???-???- EGA Weight BP Urine Prot -???-???-???-???-?? ?-???-???-???-???-? ??-???-???- Glucose FHR FuHt Pres Dilation -???-???-???-???-?? ?-???-???-???-???-? ??-???-???- Effaced St Visit Note 08/27/24 -???-???-???-???-?? ?-???-???-???-???-? ??-???-???- 8w 3d 137 lb (+0 oz) 133/77 -???-???-???-???-?? ?-???-???-???-???-? ??-???-???- 171 -???-???-???-???-?? ?-???-???-???-???-? ??-???-???- LC- CRL 1.8 con with LMP. declines nipt. BMP ordered for hypocalemia. 09/24/24 -???-???-???-???-?? ?-???-???-???-???-? ??-???-???- 12w 3d 138 lb (+0 oz) 131/73 Negative -???-???-???-???-?? ?-???-???-???-???-? ??-???-???- Negative 157 -???-???-???-???-?? ?-???-???-???-???-? ??-???-???- JV- no compl aints today. declines NIPT. 10/21/24 -???-???-???-???-?? ?-???-???-???-???-? ??-???-???- 16w 2d 140 lb (+0 oz) 121/63 Negative -???-???-???-???-?? ?-???-???-???-???-? ??-???-???- Negative 145 -???-???-???-???-?? ?-???-???-???-???-? ??-???-???- KW- no vb/cr amping. US scheduled. no concerns 11/18/24 -???-???-???-???-?? ?-???-???-???-???-? ??-???-???- 20w 2d 144 lb 4 oz (+0 oz) 123/71 Negative -???-???-???-???-?? ?-???-???-???-???-? ??-???-???- Negative 140 -???-???-???-???-?? ? (more content not included)... Normal [facility] Laboratory - Chemistry and C hemistry - challengeOrdered By: Marie Dockery on 01-28-2025 Glucose Ql (U) Negative [facility] Laboratory - UrinalysisOrder ed By: Marie Dockery on 01-28-2025 Protein Ql (U) Negative [facility] Market Research Associate Office Visit Reporton 01-28-2025 Market Research Associate Office Visit Report [facility]'s [address], [address] [place] [address] OFFICE VISIT Date of Service: 01/28/25 MR#: [id number] Acct: [id number] Name: PATRICIA PERSON Rep #: [id number] : 1990 Provider: Dr. Marie treadwell MD Age/Sex: 34/F Location: [facility] Status: Signed Intake Vital Signs 10/21/24 15:57 01/11/25 14:33 01/28/25 14:53 01/28/25 14:55 Height 5 ft 6 in 5 ft 6 in 5 ft 6 in 5 ft 6 in Weight: 152 lb 2 oz BMI 24.5 BP 110/69 Intake Visit Reasons: 30 WK OB Giving Officer Required: No Is patient in pain?: No Allergies No Known Allergies Allergy (Verified 01/28/25 14:53) Medications ???Medication ???Instructions ???Recorded ???Confirmed ???Type calcium carbonate 600 mg PO DAILY 08/26/23 01/28/25 History vits no.126-ferrous fum tab PO 08/10/24 01/28/25 History 28 mg iron-folic acid 800 mcg tablet (Classic ) blood sugar diagnostic (Blood #120 ea 01/12/25 01/28/25 Rx Glucose Test strips) blood-glucose meter #1 ea 01/12/25 01/28/25 Rx lancets #200 ea 01/12/25 01/28/25 Rx Last Menstrual Period: 06/29/24 Zika: Zika virus screening: Negative : No PFSH PFSH Medical History Hypocalcemia Surgical History H/O wisdom tooth extraction Family History Other Celiac disease Diabetes Heart disease Social History adopted: No household members: spouse 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 occupational 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: No pets and animals: Yes history of recent travel: Yes ([place], [place], [place], [place] (May 2024)) details: [place] (Summer 2023), [place] (Jun 2024) out of state: Yes out of country: Yes sexually active: Yes Smoking Status: Never smoker alcohol intake: never substance use type: does not use well-balanced diet: daily or most days caffeine: No eating out: rarely or never during the past year weight has: remained stable what type of physical activity do you participate in: none bj/synagogue: Evangelical seatbelt use: always do you feel safe at home: Yes 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 OB Visit ALDAIR Calculator Estimated Delivery Date Method Current WG Current Estimate 04/05/25 LMP (Certain) 30w 3d Expected Delivery Route/Plan Labor Preferences- CB/BF classes: [] labor support person: [] labor intervention preferences: [] pain management options preferred: [] cut cord/dad catch: [] : [] PP control planned: [] discussed possible routes of delivery and associated risks: [] special requests: [] Specific Issue/Plans Covid status: [] Flu vaccine: [] Tdap vaccine: [] Rhogam: [] LARC form signed: [] Problem list reviewed and updated with the most current plan of care details and appropriate orders placed. Relevant counseling for the gestational age provided. Continue routine care and follow up unless otherwise noted in visit notes/problem list details Initial Weight: Not Recorded Date -???-???-???-???-?? ?-???-???-???-???-? ??-???-???- EGA Weight BP Urine Prot -???-???-???-???-?? ?-???-???-???-???-? ??-???-???- Glucose FHR FuHt Pres Dilation -???-???-???-???-?? ?-???-???-???-???-? ??-???-???- Effaced St Visit Note 08/27/24 -???-???-???-???-?? ?-???-???-???-???-? ??-???-???- 8w 3d 137 lb (+0 oz) 133/77 -???-???-???-???-?? ?-???-???-???-???-? ??-???-???- 171 -???-???-???-???-?? ?-???-???-???-???-? ??-???-???- LC- CRL 1.8 con with LMP. declines nipt. BMP ordered for hypocalemia. 09/24/24 -???-???-???-???-?? ?-???-???-???-???-? ??-???-???- 12w 3d 138 lb (+0 oz) 131/73 Negative -???-???-???-???-?? ?-???-???-???-???-? ??-???-???- Negative 157 -???-???-???-???-?? ?-???-???-???-???-? ??-???-???- JV- no compl aints today. declines NIPT. 10/21/24 -???-???-???-???-?? ?-???-???-???-???-? ??-???-???- 16w 2d 140 lb (+0 oz) 121/63 Negative -???-???-???-???-?? ?-???-???-???-???-? ??-???-???- Negative 145 -???-???-???-???-?? ?-???-???-???-???-? ??-???-???- KW- no vb/cr amping. US scheduled. no concerns 11/18/24 -???-???-???-???-?? ?-???-???-???-???-? ??-???-???- 20w 2d 144 lb 4 oz (+0 oz) 123/71 Negative -???-???-???-???-?? ?-???-???-???-???-? ??-???-???- Negative 140 -?? (more content not included)... Normal [facility] Gestational GTT 3HR 100gon 0 01-11-2025 3HR GTT- GEST. High [facility] Comment on above: Order Comment: Y Result Comment: FAST ING 83 Col: 01/11/25 0750 GLUCOSE TOLERANCE TEST FOR Reference Interval GESTATIONAL DIABETES Fasting <105 mg/dL 1 hour <190 mg/dl 2 hour <165 mg/dl 3 hour <145 mg/dl 1 HR GLU 211 H Col: 01/11/25 0944 2 HR GLU 113 Col: 01/11/25 1043 3 HR GLU 146 H Col: 01/11/25 1143 Performed By: #### L 500.4710 ####[facility] [address] [place], [address] Glucose tolerance 3 hours ge stational panelOrdered By: Martha Novoa on 01-11-2025 Gestational Glucose Tolerance Test See comment [facility] Comment on above: FASTING 83 Col: 0411/06 0750GLUCOSE TOLERANCE TEST FOR Reference Interval GESTATIONAL DIABETES Fasting <105 mg/dL 1 hour <190 mg/dl 2 hour <165 mg/dl 3 hour <145 mg/dl 1 HR GLU 211 H Col: 01/11/25 0944 2 HR GLU 113 Col: 01/11/25 1043 3 HR GLU 146 H Col: 01/11/25 1143 Laboratory - Chemistry and C hemistry - challengeOrdered By: Jana Roman on 01-11-2025 Glucose Ql (U) Negative [facility] Laboratory - UrinalysisOrder ed By: Jana Roman on 01-11-2025 Protein Ql (U) Negative [facility] Market Research Associate Office Visit Reporton 01-11-2025 Market Research Associate Office Visit Report [facility]'s [address], [address] [place] [address] OFFICE VISIT Date of Service: 01/11/25 MR#: [id number] Acct: [id number] Name: PATRICIA PERSON Rep #: [id number] : 1990 Provider: Dr. Jana Peck DO Age/Sex: 34/F Location: [facility] Status: Signed Intake Vital Signs 10/21/24 15:57 11/18/24 14:04 12/16/24 09:41 01/11/25 14:30 01/11/25 14:33 Height 5 ft 6 in 5 ft 6 in 5 ft 6 in 5 ft 6 in 5 ft 6 in Weight: 151 lb 8 oz BMI 24.4 BP 122/71 H Intake Visit Reasons: 28 WK OB Giving Officer Required: No Is patient in pain?: No Allergies No Known Allergies Allergy (Verified 01/11/25 14:30) Medications ???Medication ???Instructions ???Recorded ???Confirmed ???Type calcium carbonate 600 mg PO DAILY 08/26/23 01/11/25 History vits no.126-ferrous fum tab PO 08/10/24 01/11/25 History 28 mg iron-folic acid 800 mcg tablet (Classic ) Last Menstrual Period: 06/29/24 Zika: Zika virus screening: Negative : No PFSH PFSH Medical History Hypocalcemia Surgical History H/O wisdom tooth extraction Family History Other Celiac disease Diabetes Heart disease Social History adopted: No household members: spouse 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 occupational 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: No pets and animals: Yes history of recent travel: Yes ([place], [place], [place], [place] (May 2024)) details: [place] (Summer 2023), [place] (Jun 2024) out of state: Yes out of country: Yes sexually active: Yes Smoking Status: Never smoker alcohol intake: never substance use type: does not use well-balanced diet: daily or most days caffeine: No eating out: rarely or never during the past year weight has: remained stable what type of physical activity do you participate in: none bj/synagogue: Evangelical seatbelt use: always do you feel safe at home: Yes 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 OB Visit ALDAIR Calculator Estimated Delivery Date Method Current WG Current Estimate 04/05/25 LMP (Certain) 28w 0d Expected Delivery Route/Plan Labor Preferences- CB/BF classes: [] labor support person: [] labor intervention preferences: [] pain management options preferred: [] cut cord/dad catch: [] : [] PP control planned: [] discussed possible routes of delivery and associated risks: [] special requests: [] Specific Issue/Plans Covid status: [] Flu vaccine: [] Tdap vaccine: [] Rhogam: [] LARC form signed: [] Problem list reviewed and updated with the most current plan of care details and appropriate orders placed. Relevant counseling for the gestational age provided. Continue routine care and follow up unless otherwise noted in visit notes/problem list details Initial Weight: Not Recorded Date -???-???-???-???-?? ?-???-???-???-???-? ??-???-???- EGA Weight BP Urine Prot -???-???-???-???-?? ?-???-???-???-???-? ??-???-???- Glucose FHR FuHt Pres Dilation -???-???-???-???-?? ?-???-???-???-???-? ??-???-???- Effaced St Visit Note 08/27/24 -???-???-???-???-?? ?-???-???-???-???-? ??-???-???- 8w 3d 137 lb (+0 oz) 133/77 -???-???-???-???-?? ?-???-???-???-???-? ??-???-???- 171 -???-???-???-???-?? ?-???-???-???-???-? ??-???-???- LC- CRL 1.8 con with LMP. declines nipt. BMP ordered for hypocalemia. 09/24/24 -???-???-???-???-?? ?-???-???-???-???-? ??-???-???- 12w 3d 138 lb (+0 oz) 131/73 Negative -???-???-???-???-?? ?-???-???-???-???-? ??-???-???- Negative 157 -???-???-???-???-?? ?-???-???-???-???-? ??-???-???- JV- no compl aints today. declines NIPT. 10/21/24 -???-???-???-???-?? ?-???-???-???-???-? ??-???-???- 16w 2d 140 lb (+0 oz) 121/63 Negative -???-???-???-???-?? ?-???-???-???-???-? ??-???-???- Negative 145 -???-???-???-???-?? ?-???-???-???-???-? ??-???-???- KW- no vb/cr amping. US scheduled. no concerns 11/18/24 -???-???-???-???-?? ?-???-???-???-???-? ??-???-???- 20w 2d 144 lb 4 oz (+0 oz) 123/71 Negative -???-???-???-???-?? ?-???-???-???-???-? ??-???-???- Negative 140 -???-???-???-???-?? ?-???-???-???-???-? ??-???-???- JV_ anatomy scan looks normal. no complaints today. 12/16/24 -???-???-???-???-?? ?-?? (more content not included)... Normal [facility] Quantitative serum or plasma 3 hour gestational glucose tolerance panelOrdered By: Martha Novoa on 01-11-2025 Glucose tolerance 3 hours gestational panel See comment [facility] Comment on above: FASTING 83 Col: 11/06 0750GLUCOSE TOLERANCE TEST FOR Reference Interval GESTATIONAL DIABETES Fasting <105 mg/dL 1 hour <190 mg/dl 2 hour <165 mg/dl 3 hour <145 mg/dl 1 HR GLU 211 H Col: 01/11/25 0944 2 HR GLU 113 Col: 01/11/25 1043 3 HR GLU 146 H Col: 01/11/25 1143 Absolute lymphocyte countOrd ered By: Marie Dockery on 01-04-2025 Lymphocytes Auto (Unsp spec) [#/Vol] 1.46 10*3/uL 0.83-4.51 [facility] Absolute neutrophil countOrd ered By: Marie Dockery on 01-04-2025 Neutrophils (Bld) [#/Vol] 6.9 10*3/uL 2.0-7.7 [facility] Automated lymphocyte count a s percentage of total leukocytesOrdered By: Marie Dockery on 01-04-2025 Lymphocytes/100 WBC Auto (Unsp spec) 16.0 % Low 19-41 [facility] Basophil percentageOrdered B y: Marie Dockery on 01-04-2025 Basophils/100 WBC (Bld) 0.3 % 0-1 [facility] CBC W/Diff, Automatedon 03-2 -2024 Absolute Lymph 1.46 X10 3/uL Normal 0.83-4.51 [facility] Comment on above: Performed By: #### L 509.8002, L3890.6006, L100.0100, L501.0250 ####[facility] [address] [place], [address] Absolute Neut 6.9 X10 3/uL Normal 2.0-7.7 [facility] Comment on above: Performed By: #### L 509.8002, L3890.6006, L100.0100, L501.0250 ####[facility] [address] [place], [address] Basophils/100 WBC (Bld) 0.3 % Normal 0-1 [facility] Comment on above: Performed By: #### L 509.8002, L3890.6006, L100.0100, L501.0250 ####[facility] [address] [place], [address] Eosinophils/100 WBC (Bld) 0.9 % Normal 0-5 [facility] Comment on above: Performed By: #### L 509.8002, L3890.6006, L100.0100, L501.0250 ####[facility] [address] [place], [address] Erythrocyte distribution width (RBC) [Ratio] 13.4 % Normal 11.6-14.6 [facility] Comment on above: Performed By: #### L 509.8002, L3890.6006, L100.0100, L501.0250 ####[facility] [address] [place], [address] Hematocrit (Bld) [Volume fraction] 38.0 % Normal 37-47 [facility] Comment on above: Performed By: #### L 509.8002, L3890.6006, L100.0100, L501.0250 ####[facility] [address] [place], [address] Hemoglobin (Bld) [Mass/Vol] 12.6 g/dL Normal 12.0-15.0 [facility] Comment on above: Performed By: #### L 509.8002, L3890.6006, L100.0100, L501.0250 ####[facility] [address] [place], [address] IG% 0.700 Normal 0.0-0.9 [facility] Comment on above: Result Comment: IG% - Immature Granulocytes (promyelocytes, myelocytes and metamyelocytes) > 1% indicates that a LEFT SHIFT is Present. Performed By: #### L 509.8002, L3890.6006, L100.0100, L501.0250 ####[facility] [address] [place], [address] Lymphocytes/100 WBC (Bld) 16.0 % Low 19-41 [facility] Comment on above: Performed By: #### L 509.8002, L3890.6006, L100.0100, L501.0250 ####[facility] [address] [place], [address] MCH (RBC) [Entitic mass] 30.6 pg Normal 27.0-32.0 [facility] Comment on above: Performed By: #### L 509.8002, L3890.6006, L100.0100, L501.0250 ####[facility] [address] [place], [address] MCHC (RBC) [Mass/Vol] 33.2 g/dL Normal 32-36 [facility] Comment on above: Performed By: #### L 509.8002, L3890.6006, L100.0100, L501.0250 ####[facility] [address] [place], [address] MCV (RBC) [Entitic vol] 92.2 fL Normal 81-99 [facility] Comment on above: Performed By: #### L 509.8002, L3890.6006, L100.0100, L501.0250 ####[facility] [address] [place], [address] Monocytes/100 WBC (Bld) 5.9 % Normal 0-10 [facility] Comment on above: Performed By: #### L 509.8002, L3890.6006, L100.0100, L501.0250 ####[facility] [address] [place], [address] Neutrophils/100 WBC (Bld) 76.2 % High 47-70 [facility] Comment on above: Performed By: #### L 509.8002, L3890.6006, L100.0100, L501.0250 ####[facility] [address] [place], [address] Nucleated RBC (Bld) [#/Vol] 0 10*3/uL Normal 0-5 [facility] Comment on above: Performed By: #### L 509.8002, L3890.6006, L100.0100, L501.0250 ####[facility] [address] [place], [address] Platelet mean volume (Bld) [Entitic vol] 10.4 fL Normal 6.2-12.0 [facility] Comment on above: Performed By: #### L 509.8002, L3890.6006, L100.0100, L501.0250 ####[facility] [address] [place], [address] Platelets (Bld) [#/Vol] 224 10*3/uL Normal 150-450 [facility] Comment on above: Performed By: #### L 509.8002, L3890.6006, L100.0100, L501.0250 ####[facility] [address] [place], [address] RBC (Bld) [#/Vol] 4.12 10*6/uL Low 4.2-5.4 [facility] Comment on above: Performed By: #### L 509.8002, L3890.6006, L100.0100, L501.0250 ####[facility] [address] [place], [address] RDW SD 46.0 fl High 35.1-43.9 [facility] Comment on above: Performed By: #### L 509.8002, L3890.6006, L100.0100, L501.0250 ####[facility] [address] [place], [address] WBC (Bld) [#/Vol] 9.1 10*3/uL Normal 4.4-11.[address] [facility] Comment on above: Performed By: #### L 509.8002, L3890.6006, L100.0100, L501.0250 ####[facility] [address] [place], [address] Eosinophil percentageOrdered By: Marie Dockery on 01-04-2025 Eosinophils/100 WBC (Bld) 0.9 % 0-5 [facility] Erythrocyte distribution wid th ratioOrdered By: Marie Dockery on 01-04-2025 Erythrocyte distribution width (RBC) [Ratio] 13.4 % 11.6-14.6 [facility] Erythrocyte distribution wid th standard deviationOrdered By: Marie Dockery on 01-04-2025 Erythrocyte distribution width (RBC) [Entitic vol] 46.0 fL High 35.1-43.9 [facility] Erythrocyte distribution width (RBC) [Ratio] 46.0 fl High 35.1-43.9 [facility] Glucose Challenge Gest 1H 50 sandro 01-04-2025 GLU GEST 50g 1H 153 mg/dL High 70-140 [facility] Comment on above: Performed By: #### L 509.8002, L3890.6006, L100.0100, L501.0250 ####[facility] [address] [place], [place], [id number] Glucose measurement at 2 peg rs post-dose gestational glucose tolerance testOrdered By: Marie Dockery on 01-04-2025 Glucose [Mass/Vol] 153 mg/dL High 70-[address] [facility] Hematocrit Auto (Bld) [Volum e fraction]Ordered By: Marie Dockery on 01-04-2025 Hematocrit (Bld) [Volume fraction] 38.0 % 37-47 [facility] Hemoglobin measurementOrdere d By: Marie Dockery on 01-04-2025 Hemoglobin (Bld) [Mass/Vol] 12.6 g/dL 12.0-15.0 [facility] Immature granulocytes/100 WB C Auto (Bld)Ordered By: Marie Dockery on 01-04-2025 Immature granulocytes/100 WBC (Bld) 0.700 % 0.0-0.9 [facility] Comment on above: IG% - Immature Granu locytes (promyelocytes, myelocytes and metamyelocytes) > 1% indicates that a LEFT SHIFT is Present. L3890.6006on 01-04-2025 HIV Non-Reactive Normal Nonreactive [facility] Comment on above: Result Comment: Non- Reactive Reactive Repeatedly reactive samples must be confirmed according to CDC recommended confirmatory algorithms. The subresults for either HIVAG or AHIV can be used as an aid in the selection of the confirmation algorithm for reactive samples. Send out specimens with Reactive results to [facility] for confirmation. Order the HIV antibody detection and differentiation: lc#[id number] Performed By: #### L 509.8002, L3890.6006, L100.0100, L501.0250 ####[facility] [address] [place], [place], [id number] L509.8002on 01-04-2025 Syphilis Abs Non-Reactive Normal Nonreactive [facility] Comment on above: Performed By: #### L 509.8002, L3890.6006, L100.0100, L501.0250 ####[facility] [address] [place], [address] Lymphocytes Auto (Unsp spec) [#/Vol]Ordered By: Marie Dockery on 01-04-2025 Lymphocytes (Bld) [#/Vol] 1.46 10*3/uL 0.83-4.51 [facility] Lymphocytes/100 WBC Auto (Un sp spec)Ordered By: Marie Dockery on 01-04-2025 Lymphocytes/100 WBC (Bld) 16.0 % Low 19-41 [facility] MCV (mean corpuscular volume ) determinationOrdered By: Marie Dockery on 01-04-2025 MCV (RBC) [Entitic vol] 92.2 fL 81-99 [facility] Mean corpuscular hemoglobin (MCH) determinationOrdered By: Marie Dockery on 01-04-2025 MCH (RBC) [Entitic mass] 30.6 pg 27.0-32.0 [facility] Mean corpuscular hemoglobin concentration (MCHC) determinationOrdered By: Marie Dockery on 01-04-2025 MCHC (RBC) [Mass/Vol] 33.2 g/dL 32-36 [facility] Mean platelet volume determi nationOrdered By: Marie Dockery on 01-04-2025 Platelet mean volume (Bld) [Entitic vol] 10.4 fL 6.2-12.0 [facility] Monocyte percentageOrdered B y: Marie Dockery on 01-04-2025 Monocytes/100 WBC (Bld) 5.9 % 0-10 [facility] Neutrophil percentageOrdered By: Marie Dockery on 01-04-2025 Neutrophils/100 WBC (Bld) 76.2 % High 47-70 [facility] No Panel InformationOrdered By: Marie Dockery on 01-04-2025 HIV (1&2) Antibody Non-Reactive Nonreactive [facility] Comment on above: Non-ReactiveReactive Repeatedly reactive samples must be confirmed according to CDC recommended confirmatory algorithms. The subresults for either HIVAG or AHIV can be used as an aid in the selection of the confirmation algorithm for reactive samples.Send out specimens with Reactive results to [facility] for confirmation.Order the HIV antibody detection and differentiation: #[id number] Nucleated red blood cell per centageOrdered By: Marie Dockery on 01-04-2025 Nucleated RBC/100 WBC (Bld) [Ratio] 0 % 0-5 [facility] Platelet countOrdered By: Moon Dockery on 01-04-2025 Platelets (Bld) [#/Vol] 224 10*3/uL 150-450 [facility] RBC Auto (Bld) [#/Vol]Ordere d By: Marie Dockery on 01-04-2025 RBC (Bld) [#/Vol] 4.12 10*6/uL Low 4.2-5.4 [facility] T. pallidum abOrdered By: Moon Dockery on 01-04-2025 Syphilis Total Antibody Non-Reactive Nonreactiv e [facility] White blood cell (WBC) count Ordered By: Marie Dockery on 01-04-2025 WBC (Bld) [#/Vol] 9.1 10*3/uL 4.4-11.[address] [facility] Laboratory - Chemistry and C hemistry - challengeOrdered By: Marie Dockery on 12-16-2024 Glucose Ql (U) Negative [facility] Laboratory - UrinalysisOrder ed By: Marie Dockery on 12-16-2024 Protein Ql (U) Negative [facility] Market Research Associate Office Visit Reporton 12-16-2024 Market Research Associate Office Visit Report [facility] [address], [address] [place] [address] OFFICE VISIT Date of Service: 12/16/24 MR#: [id number] Acct: [id number] Name: PATRICIA PERSON Rep #: [id number] : 1990 Provider: Dr. Marie treadwell MD Age/Sex: 34/F Location: [facility] Status: Signed Intake Vital Signs 10/21/24 15:57 11/18/24 14:04 12/16/24 09:41 Height 5 ft 6 in 5 ft 6 in 5 ft 6 in Weight: 148 lb BMI 23.8 BP 118/74 Intake Visit Reasons: 24 WK OB Giving Officer Required: No Is patient in pain?: No Feel stressed/tense/nerv ous/anxious/difficu lty sleeping: not at all Allergies No Known Allergies Allergy (Verified 12/16/24 09:43) Medications ???Medication ???Instructions ???Recorded ???Confirmed ???Type calcium carbonate 600 mg PO DAILY 08/26/23 12/16/24 History vits no.126-ferrous fum tab PO 08/10/24 12/16/24 History 28 mg iron-folic acid 800 mcg tablet (Classic ) Last Menstrual Period: 06/29/24 Zika: Zika virus screening: Negative : No PFSH PFSH Medical History Hypocalcemia Surgical History H/O wisdom tooth extraction Family History Other Celiac disease Diabetes Heart disease Social History adopted: No household members: spouse 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 occupational 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: No pets and animals: Yes history of recent travel: Yes ([place], [place], [place], [place] (May 2024)) details: [place] (Summer 2023), [place] (Jun 2024) out of state: Yes out of country: Yes sexually active: Yes Smoking Status: Never smoker alcohol intake: never substance use type: does not use well-balanced diet: daily or most days caffeine: No eating out: rarely or never during the past year weight has: remained stable what type of physical activity do you participate in: none bj/synagogue: Evangelical seatbelt use: always do you feel safe at home: Yes 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 OB Visit ALDAIR Calculator Estimated Delivery Date Method Current WG Current Estimate 04/05/25 LMP (Certain) 24w 2d Expected Delivery Route/Plan Labor Preferences- CB/BF classes: [] labor support person: [] labor intervention preferences: [] pain management options preferred: [] cut cord/dad catch: [] : [] PP control planned: [] discussed possible routes of delivery and associated risks: [] special requests: [] Specific Issue/Plans Covid status: [] Flu vaccine: [] Tdap vaccine: [] Rhogam: [] LARC form signed: [] Problem list reviewed and updated with the most current plan of care details and appropriate orders placed. Relevant counseling for the gestational age provided. Continue routine care and follow up unless otherwise noted in visit notes/problem list details Initial Weight: Not Recorded Date -???-???-???-???-?? ?-???-???-???-???-? ??-???-???- EGA Weight BP Urine Prot -???-???-???-???-?? ?-???-???-???-???-? ??-???-???- Glucose FHR FuHt Pres Dilation -???-???-???-???-?? ?-???-???-???-???-? ??-???-???- Effaced St Visit Note 08/27/24 -???-???-???-???-?? ?-???-???-???-???-? ??-???-???- 8w 3d 137 lb (+0 oz) 133/77 -???-???-???-???-?? ?-???-???-???-???-? ??-???-???- 171 -???-???-???-???-?? ?-???-???-???-???-? ??-???-???- LC- CRL 1.8 con with LMP. declines nipt. BMP ordered for hypocalemia. 09/24/24 -???-???-???-???-?? ?-???-???-???-???-? ??-???-???- 12w 3d 138 lb (+0 oz) 131/73 Negative -???-???-???-???-?? ?-???-???-???-???-? ??-???-???- Negative 157 -???-???-???-???-?? ?-???-???-???-???-? ??-???-???- JV- no compl aints today. declines NIPT. 10/21/24 -???-???-???-???-?? ?-???-???-???-???-? ??-???-???- 16w 2d 140 lb (+0 oz) 121/63 Negative -???-???-???-???-?? ?-???-???-???-???-? ??-???-???- Negative 145 -???-???-???-???-?? ?-???-???-???-???-? ??-???-???- KW- no vb/cr amping. US scheduled. no concerns 11/18/24 -???-???-???-???-?? ?-???-???-???-???-? ??-???-???- 20w 2d 144 lb 4 oz (+0 oz) 123/71 Negative -???-???-???-???-?? ?-???-???-???-???-? ??-???-???- Negative 140 -???-???-???-???-?? ?-???-???-???-???-? ??-???-???- JV_ anatomy scan looks normal. no complaints today. 12/16/24 -???-???-???-???-?? ?-??? (more content not included)... Normal [facility] Laboratory - Chemistry and C hemistry - challengeOrdered By: Jana Roman on 11-18-2024 Glucose Ql (U) Negative [facility] Laboratory - UrinalysisOrder ed By: Jana Roman on 11-18-2024 Protein Ql (U) Negative [facility] Market Research Associate Office Visit Reporton 11-18-2024 Market Research Associate Office Visit Report [facility] [address], [address] [place] [address] OFFICE VISIT Date of Service: 11/18/24 MR#: [id number] Acct: [id number] Name: PATRICIA PERSON Rep #: [id number] : 1990 Provider: Dr. Jana Peck DO Age/Sex: 34/F Location: [facility] Status: Signed Intake Vital Signs 10/21/24 15:57 11/18/24 14:02 11/18/24 14:04 Height 5 ft 6 in 5 ft 6 in 5 ft 6 in Weight: 144 lb 4 oz BMI 23.3 BP 123/71 H Intake Visit Reasons: 20 WK OB Giving Officer Required: No Is patient in pain?: No Allergies No Known Allergies Allergy (Verified 11/18/24 14:01) Medications ???Medication ???Instructions ???Recorded ???Confirmed ???Type calcium carbonate 600 mg PO DAILY 08/26/23 11/18/24 History vits no.126-ferrous fum tab PO 08/10/24 11/18/24 History 28 mg iron-folic acid 800 mcg tablet (Classic ) Last Menstrual Period: 06/29/24 Zika: Zika virus screening: Negative : No PFSH PFSH Medical History Hypocalcemia Surgical History H/O wisdom tooth extraction Family History Other Celiac disease Diabetes Heart disease Social History adopted: No household members: spouse 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 occupational 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: No pets and animals: Yes history of recent travel: Yes ([place], [place], [place], [place] (May 2024)) details: [place] (Summer 2023), [place] (Jun 2024) out of state: Yes out of country: Yes sexually active: Yes Smoking Status: Never smoker alcohol intake: never substance use type: does not use well-balanced diet: daily or most days caffeine: No eating out: rarely or never during the past year weight has: remained stable what type of physical activity do you participate in: none bj/synagogue: Evangelical seatbelt use: always do you feel safe at home: Yes 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 OB Visit ALDAIR Calculator Estimated Delivery Date Method Current WG Current Estimate 04/05/25 LMP (Certain) 20w 2d Expected Delivery Route/Plan Labor Preferences- CB/BF classes: [] labor support person: [] labor intervention preferences: [] pain management options preferred: [] cut cord/dad catch: [] : [] PP control planned: [] discussed possible routes of delivery and associated risks: [] special requests: [] Specific Issue/Plans Covid status: [] Flu vaccine: [] Tdap vaccine: [] Rhogam: [] LARC form signed: [] Problem list reviewed and updated with the most current plan of care details and appropriate orders placed. Relevant counseling for the gestational age provided. Continue routine care and follow up unless otherwise noted in visit notes/problem list details Initial Weight: Not Recorded Date -???-???-???-???-?? ?-???-???-???-???-? ??-???-???- EGA Weight BP Urine Prot -???-???-???-???-?? ?-???-???-???-???-? ??-???-???- Glucose FHR FuHt Pres Dilation -???-???-???-???-?? ?-???-???-???-???-? ??-???-???- Effaced St Visit Note 08/27/24 -???-???-???-???-?? ?-???-???-???-???-? ??-???-???- 8w 3d 137 lb (+0 oz) 133/77 -???-???-???-???-?? ?-???-???-???-???-? ??-???-???- 171 -???-???-???-???-?? ?-???-???-???-???-? ??-???-???- LC- CRL 1.8 con with LMP. declines nipt. BMP ordered for hypocalemia. 09/24/24 -???-???-???-???-?? ?-???-???-???-???-? ??-???-???- 12w 3d 138 lb (+0 oz) 131/73 Negative -???-???-???-???-?? ?-???-???-???-???-? ??-???-???- Negative 157 -???-???-???-???-?? ?-???-???-???-???-? ??-???-???- JV- no compl aints today. declines NIPT. 10/21/24 -???-???-???-???-?? ?-???-???-???-???-? ??-???-???- 16w 2d 140 lb (+0 oz) 121/63 Negative -???-???-???-???-?? ?-???-???-???-???-? ??-???-???- Negative 145 -???-???-???-???-?? ?-???-???-???-???-? ??-???-???- KW- no vb/cr amping. US scheduled. no concerns 11/18/24 -???-???-???-???-?? ?-???-???-???-???-? ??-???-???- 20w 2d 144 lb 4 oz (+0 oz) 123/71 Negative -???-???-???-???-?? ?-???-???-???-???-? ??-???-???- Negative 140 -???-???-???-???-?? ?-???-???-???-???-? ??-???-???- JV_ anatomy scan looks normal. no complaints today. ACOG First Trimester First Trimester: Desire for , Alcohol, Tobacco Cessation (more content not included)... Normal [facility] Laboratory - Chemistry and C hemistry - challengeon 10-21-2024 Glucose Ql (U) Negative [facility] Laboratory - Urinalysison Protein Ql (U) Negative [facility] Market Research Associate Office Visit Reporton 10-21-2024 Market Research Associate Office Visit Report [facility] [address] [place] [address] OFFICE VISIT Date of Service: 10/21/24 MR#: [id number] Acct: [id number] Name: PATRICIA PERSON Rep #: [id number] : 1990 Provider: AARON Herrera ams Age/Sex: 33/F Location: [facility] Status: Signed Intake Vital Signs 09/24/24 10:00 10/21/24 15:50 10/21/24 15:57 Height 5 ft 6 in 5 ft 6 in 5 ft 6 in Weight: 140 lb BMI 22.6 BP 121/63 H Intake Visit Reasons: 16 WK OB Giving Officer Required: No Is patient in pain?: No Allergies No Known Allergies Allergy (Verified 10/21/24 15:53) Medications ???Medication ???Instructions ???Recorded ???Confirmed ???Type calcium carbonate 600 mg PO DAILY 08/26/23 10/21/24 History vits no.126-ferrous fum tab PO 08/10/24 10/21/24 History 28 mg iron-folic acid 800 mcg tablet (Classic ) Last Menstrual Period: 06/29/24 Zika: Zika virus screening: Negative : No Have you fallen in the past year?: No PFSH PFSH Medical History Hypocalcemia Surgical History H/O wisdom tooth extraction Family History Other Celiac disease Diabetes Heart disease Social History adopted: No household members: spouse 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 occupational 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: No pets and animals: Yes history of recent travel: Yes ([place], [place], [place], [place] (May 2024)) details: [place] (Summer 2023), [place] (Jun 2024) out of state: Yes out of country: Yes sexually active: Yes Smoking Status: Never smoker alcohol intake: never substance use type: does not use well-balanced diet: daily or most days caffeine: No eating out: rarely or never during the past year weight has: remained stable what type of physical activity do you participate in: none bj/synagogue: Evangelical seatbelt use: always do you feel safe at home: Yes 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 OB Visit ALDAIR Calculator Estimated Delivery Date Method Current WG Current Estimate 04/05/25 LMP (Certain) 16w 2d Expected Delivery Route/Plan Labor Preferences- CB/BF classes: [] labor support person: [] labor intervention preferences: [] pain management options preferred: [] cut cord/dad catch: [] : [] PP control planned: [] discussed possible routes of delivery and associated risks: [] special requests: [] Specific Issue/Plans Covid status: [] Flu vaccine: [] Tdap vaccine: [] Rhogam: [] LARC form signed: [] Problem list reviewed and updated with the most current plan of care details and appropriate orders placed. Relevant counseling for the gestational age provided. Continue routine care and follow up unless otherwise noted in visit notes/problem list details Initial Weight: Not Recorded Date -???-???-???-???-?? ?-???-???-???-???-? ??-???-???- EGA Weight BP Urine Prot -???-???-???-???-?? ?-???-???-???-???-? ??-???-???- Glucose FHR FuHt Pres Dilation -???-???-???-???-?? ?-???-???-???-???-? ??-???-???- Effaced St Visit Note 08/27/24 -???-???-???-???-?? ?-???-???-???-???-? ??-???-???- 8w 3d 137 lb (+0 oz) 133/77 -???-???-???-???-?? ?-???-???-???-???-? ??-???-???- 171 -???-???-???-???-?? ?-???-???-???-???-? ??-???-???- LC- CRL 1.8 con with LMP. declines nipt. BMP ordered for hypocalemia. 09/24/24 -???-???-???-???-?? ?-???-???-???-???-? ??-???-???- 12w 3d 138 lb (+0 oz) 131/73 Negative -???-???-???-???-?? ?-???-???-???-???-? ??-???-???- Negative 157 -???-???-???-???-?? ?-???-???-???-???-? ??-???-???- JV- no compl aints today. declines NIPT. 10/21/24 -???-???-???-???-?? ?-???-???-???-???-? ??-???-???- 16w 2d 140 lb (+0 oz) 121/63 Negative -???-???-???-???-?? ?-???-???-???-???-? ??-???-???- Negative 145 -???-???-???-???-?? ?-???-???-???-???-? ??-???-???- KW- no vb/cr amping. US scheduled. no concerns ACOG First Trimester First Trimester: Desire for , Alcohol, Tobacco Cessation, Illicit/Recreationa l Drug/Substance Use, Intimate Partner Violence, Barriers to care, Unstable Housing, Communication Barriers, Environmental/Work Hazards, Anticipated Course of Care, Toxoplasmosis Precations, Use of Any medications, Sexual activi (more content not included)... Normal [facility] Laboratory - Chemistry and C hemistry - challengeon 09-24-2024 Glucose Ql (U) Negative [facility] Laboratory - Urinalysison Protein Ql (U) Negative [facility] Market Research Associate Office Visit Reporton 09-24-2024 Market Research Associate Office Visit Report [facility]'s [address], [address] [place] [address] OFFICE VISIT Date of Service: 09/24/24 MR#: [id number] Acct: [id number] Name: PATRICIA PERSON Rep #: [id number] : 1990 Provider: Dr. Jana Peck DO Age/Sex: 33/F Location: [facility] Status: Signed Intake Vital Signs 12/03/23 14:06 08/27/24 08:47 09/24/24 10:00 09/24/24 10:00 Height 5 ft 6 in 5 ft 6 in 5 ft 6 in 5 ft 6 in Weight: 138 lb BMI 22.2 BP 131/73 H Intake Visit Reasons: 12wk OB Giving Officer Required: No Is patient in pain?: No Allergies No Known Allergies Allergy (Verified 09/24/24 09:59) Medications ???Medication ???Instructions ???Recorded ???Confirmed ???Type calcium carbonate 600 mg PO DAILY 08/26/23 09/24/24 History vits no.126-ferrous fum tab PO 08/10/24 09/24/24 History 28 mg iron-folic acid 800 mcg tablet (Classic ) Last Menstrual Period: 06/29/24 Zika: Zika virus screening: Negative : No PFSH PFSH Medical History Hypocalcemia Surgical History H/O wisdom tooth extraction Family History Other Celiac disease Diabetes Heart disease Social History adopted: No household members: spouse 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 occupational 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: No pets and animals: Yes history of recent travel: Yes ([place], [place], [place], [place] (May 2024)) details: [place] (Summer 2023), [place] (Jun 2024) out of state: Yes out of country: Yes sexually active: Yes Smoking Status: Never smoker alcohol intake: never substance use type: does not use well-balanced diet: daily or most days caffeine: No eating out: rarely or never during the past year weight has: remained stable what type of physical activity do you participate in: none bj/synagogue: Evangelical seatbelt use: always do you feel safe at home: Yes 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 OB Visit ALDAIR Calculator Estimated Delivery Date Method Current WG Current Estimate 04/05/25 LMP (Certain) 12w 3d Expected Delivery Route/Plan Labor Preferences- CB/BF classes: [] labor support person: [] labor intervention preferences: [] pain management options preferred: [] cut cord/dad catch: [] : [] PP control planned: [] discussed possible routes of delivery and associated risks: [] special requests: [] Specific Issue/Plans Covid status: [] Flu vaccine: [] Tdap vaccine: [] Rhogam: [] LARC form signed: [] Problem list reviewed and updated with the most current plan of care details and appropriate orders placed. Relevant counseling for the gestational age provided. Continue routine care and follow up unless otherwise noted in visit notes/problem list details Initial Weight: Not Recorded Date -???-???-???-???-?? ?-???-???-???-???-? ??-???-???- EGA Weight BP Urine Prot -???-???-???-???-?? ?-???-???-???-???-? ??-???-???- Glucose FHR FuHt Pres Dilation -???-???-???-???-?? ?-???-???-???-???-? ??-???-???- Effaced St Visit Note 08/27/24 -???-???-???-???-?? ?-???-???-???-???-? ??-???-???- 8w 3d 137 lb (+0 oz) 133/77 -???-???-???-???-?? ?-???-???-???-???-? ??-???-???- 171 -???-???-???-???-?? ?-???-???-???-???-? ??-???-???- LC- CRL 1.8 con with LMP. declines nipt. BMP ordered for hypocalemia. 09/24/24 -???-???-???-???-?? ?-???-???-???-???-? ??-???-???- 12w 3d 138 lb (+0 oz) 131/73 Negative -???-???-???-???-?? ?-???-???-???-???-? ??-???-???- Negative 157 -???-???-???-???-?? ?-???-???-???-???-? ??-???-???- JV- no compl aints today. declines NIPT. ACOG First Trimester First Trimester: Desire for , Alcohol, Tobacco Cessation, Illicit/Recreationa l Drug/Substance Use, Intimate Partner Violence, Barriers to care, Unstable Housing, Communication Barriers, Environmental/Work Hazards, Anticipated Course of Care, Toxoplasmosis Precations, Use of Any medications, Sexual activity, Exercise, Dental Care, Sauna/Hot tub use, Seat Belt use, Childbirth classes/Hospital facilities, Travel, Indications for Ultrasound and Screening for Aneuploidy; Discussed Results POC Urinalysis 2 Dip (Clinic) Office Urine Glucose Negative Last E (more content not included)... Normal [facility] Chlamydia/GC PEG aptimaon CHLAMY,NUC ACID Negative Normal Negative [facility] Comment on above: Performed By: #### L 7000.1800, M100.2200 #### [facility] Laboratory [address] [place], [address] GC BY NUC ACID Negative Normal Negative [facility] Comment on above: Result Comment: Perf ormed at: =G - [facility] [address] [id number] Medical Records Custodian: Rekha Qureshi MD, Phone: [phone] Performed By: #### L 7000.1800, M100.2200 #### [facility] Laboratory [address] [place], [address] Urine Cultureon 08-28-2024 URC Culture exhibits no growth. Normal [facility] Comment on above: Performed By: #### L 7000.1800, M100.2200 #### [facility] Laboratory [address] [place], [address] Basic Metabolic Profile (BMP )on 08-27-2024 BUN/CRE 11.9 RATIO Normal 10-20 [facility] Comment on above: Order Comment: ADD O N Performed By: #### L 500.2500 ####[facility] [address] [place], [address] CA,Total 9.0 mg/dL Normal 8.5-10.1 [facility] Comment on above: Order Comment: ADD O N Performed By: #### L 500.2500 ####[facility] [address], [address] Chloride [Moles/Vol] 103 mmol/L Normal 98-107 [facility] Comment on above: Order Comment: ADD O N Performed By: #### L 500.2500 ####[facility] [address] [place], [address] CO2 [Moles/Vol] 27.0 mmol/L Normal 21.0-32.0 [facility] Comment on above: Order Comment: ADD O N Performed By: #### L 500.2500 ####[facility] [address] [place], [address] Creatinine [Mass/Vol] 0.67 mg/dL Normal 0.55-1.02 [facility] Comment on above: Order Comment: ADD O N Result Comment: The validity of the calculated GFR GFRAA in patients over 70 years has not been determined. Clinical correlation is essential. Performed By: #### L 500.2500 ####[facility] [address] [place], [address] EST GFR - AA 131 mL/min Normal >60 [facility] Comment on above: Order Comment: ADD O N Result Comment: Afri can Swiss GFR Calc Performed By: #### L 500.2500 ####[facility] [address] [place], [address] GAP 6 Normal 5-15 [facility] Comment on above: Order Comment: ADD O N Performed By: #### L 500.2500 ####[facility] [address] [place], [address] GFR/1.73 sq M.predicted among non-blacks MDRD (S/P/Bld) [Vol rate/Area] 108 mL/min/{1.73_m2} Normal >60 [facility] Comment on above: Order Comment: ADD O N Result Comment: Non- GFR Calc Performed By: #### L 500.2500 ####[facility] [address] [place], [address] Glucose [Mass/Vol] 87 mg/dL Normal 74-[address] [facility] Comment on above: Order Comment: ADD O N Performed By: #### L 500.2500 ####[facility] [address] [place], [address] Potassium [Moles/Vol] 3.9 mmol/L Normal 3.5-5.1 [facility] Comment on above: Order Comment: ADD O N Performed By: #### L 500.2500 ####[facility] [address] [place], [address] Sodium [Moles/Vol] 136 mmol/L Normal 136-[address] [facility] Comment on above: Order Comment: ADD O N Performed By: #### L 500.2500 ####[facility] [address] [place], [address] Urea nitrogen [Mass/Vol] 8 mg/dL Normal 7-18 [facility] Comment on above: Order Comment: ADD O N Performed By: #### L 500.2500 ####[facility] [address] [place], [address] CBC W/Diff, Automatedon 08-13 Absolute Lymph 1.42 X10 3/uL Normal 0.83-4.51 [facility] Comment on above: Performed By: #### L 3890.6100, L3890.6005, L509.8000, L3890.6300, L100.0100, L509.4005, BTS #### [facility] Laboratory [address] [place], [address] Absolute Neut 4.7 X10 3/uL Normal 2.0-7.7 [facility] Comment on above: Performed By: #### L 3890.6100, L3890.6005, L509.8000, L3890.6300, L100.0100, L509.4005, BTS #### [facility] [address] [place], [address] Basophils/100 WBC (Bld) 0.6 % Normal 0-1 [facility] Comment on above: Performed By: #### L 3890.6100, L3890.6005, L509.8000, L3890.6300, L100.0100, L509.4005, BTS #### [facility] [address] [place], [address] Eosinophils/100 WBC (Bld) 0.9 % Normal 0-5 [facility] Comment on above: Performed By: #### L 3890.6100, L3890.6005, L509.8000, L3890.6300, L100.0100, L509.4005, BTS #### [facility] Laboratory [address] [place], [address] Erythrocyte distribution width (RBC) [Ratio] 13.2 % Normal 11.6-14.6 [facility] Comment on above: Performed By: #### L 3890.6100, L3890.6005, L509.8000, L3890.6300, L100.0100, L509.4005, BTS #### [facility] [address] [place], [address] Hematocrit (Bld) [Volume fraction] 39.7 % Normal 37-47 [facility] Comment on above: Performed By: #### L 3890.6100, L3890.6005, L509.8000, L3890.6300, L100.0100, L509.4005, BTS #### [facility] [address] [place], [address] Hemoglobin (Bld) [Mass/Vol] 12.8 g/dL Normal 12.0-15.0 [facility] Comment on above: Performed By: #### L 3890.6100, L3890.6005, L509.8000, L3890.6300, L100.0100, L509.4005, BTS #### [facility] [address] [place], [address] IG% 0.600 Normal 0.0-0.9 [facility] Comment on above: Result Comment: IG% - Immature Granulocytes (promyelocytes, myelocytes and metamyelocytes) > 1% indicates that a LEFT SHIFT is Present. Performed By: #### L 3890.6100, L3890.6005, L509.8000, L3890.6300, L100.0100, L509.4005, BTS #### [facility] [address] [place], [address] Lymphocytes/100 WBC (Bld) 20.7 % Normal 19-41 [facility] Comment on above: Performed By: #### L 3890.6100, L3890.6005, L509.8000, L3890.6300, L100.0100, L509.4005, BTS #### [facility] Laboratory [address] [place], [address] MCH (RBC) [Entitic mass] 28.7 pg Normal 27.0-32.0 [facility] Comment on above: Performed By: #### L 3890.6100, L3890.6005, L509.8000, L3890.6300, L100.0100, L509.4005, BTS #### [facility] Laboratory [address] [place], [address] MCHC (RBC) [Mass/Vol] 32.2 g/dL Normal 32-36 [facility] Comment on above: Performed By: #### L 3890.6100, L3890.6005, L509.8000, L3890.6300, L100.0100, L509.4005, BTS #### [facility] [address] [place], [address] MCV (RBC) [Entitic vol] 89.0 fL Normal 81-99 [facility] Comment on above: Performed By: #### L 3890.6100, L3890.6005, L509.8000, L3890.6300, L100.0100, L509.4005, BTS #### [facility] [address] [place], [address] Monocytes/100 WBC (Bld) 8.6 % Normal 0-10 [facility] Comment on above: Performed By: #### L 3890.6100, L3890.6005, L509.8000, L3890.6300, L100.0100, L509.4005, BTS #### [facility] [address] [place], [address] Neutrophils/100 WBC (Bld) 68.6 % Normal 47-70 [facility] Comment on above: Performed By: #### L 3890.6100, L3890.6005, L509.8000, L3890.6300, L100.0100, L509.4005, BTS #### [facility] [address] [place], [address] Nucleated RBC (Bld) [#/Vol] 0 10*3/uL Normal 0-5 [facility] Comment on above: Performed By: #### L 3890.6100, L3890.6005, L509.8000, L3890.6300, L100.0100, L509.4005, BTS #### [facility] [address] [place], [address] Platelet mean volume (Bld) [Entitic vol] 11.2 fL Normal 6.2-12.0 [facility] Comment on above: Performed By: #### L 3890.6100, L3890.6005, L509.8000, L3890.6300, L100.0100, L509.4005, BTS #### [facility] Laboratory [address] [place], [address] Platelets (Bld) [#/Vol] 237 10*3/uL Normal 150-450 [facility] Comment on above: Performed By: #### L 3890.6100, L3890.6005, L509.8000, L3890.6300, L100.0100, L509.4005, BTS #### [facility] Laboratory [address] [place], [address] RBC (Bld) [#/Vol] 4.46 10*6/uL Normal 4.2-5.4 [facility] Comment on above: Performed By: #### L 3890.6100, L3890.6005, L509.8000, L3890.6300, L100.0100, L509.4005, BTS #### [facility] [address] [place], [address] RDW SD 43.2 fl Normal 35.1-43.9 [facility] Comment on above: Performed By: #### L 3890.6100, L3890.6005, L509.8000, L3890.6300, L100.0100, L509.4005, BTS #### [facility] [address] [place], [address] WBC (Bld) [#/Vol] 6.9 10*3/uL Normal 4.4-11.[address] [facility] Comment on above: Performed By: #### L 3890.6100, L3890.6005, L509.8000, L3890.6300, L100.0100, L509.4005, BTS #### [facility] [address] [place], [address] HIV - WCHon 08-27-2024 HIV Non-Reactive Normal Nonreactive [facility] Comment on above: Order Comment: Reaso n for Exam: Performed By: #### L 3890.6100, L3890.6005, L509.8000, L3890.6300, L100.0100, L509.4005, BTS ####[facility] [address] [place], [place], [address] Hepatitis B Surface Antigeno n 08-27-2024 HEP B Surf Ag Non-Reactive Normal Nonreactive [facility] Comment on above: Order Comment: Reaso n for Exam: Performed By: #### L 3890.6100, L3890.6005, L509.8000, L3890.6300, L100.0100, L509.4005, BTS ####[facility] [address], [address] Hepatitis C Antibodyon 08-27 Hepatitis C AB Non-Reactive Normal Nonreactive [facility] Comment on above: Order Comment: Reaso n for Exam: Result Comment: Non Reactive: < 0.8 Equivocal: >/= 0.8 to < 1.0 Reactive: >/= 1.0 The CDC requires that a reactive/equivocal HCV antibody result be sent out for confirmation. HCV Quant by PCR testing. Performed By: #### L 3890.6100, L3890.6005, L509.8000, L3890.6300, L100.0100, L509.4005, BTS ####[facility] [address] [place], [place], [id number] L509.8000on 08-27-2024 Syphilis Abs Non-Reactive Normal [facility] Comment on above: Order Comment: Reaso n for Exam: Performed By: #### L 3890.6100, L3890.6005, L509.8000, L3890.6300, L100.0100, L509.4005, BTS ####[facility] [address], [address] Market Research Associate Office Visit Reporton 08-27-2024 Market Research Associate Office Visit Report [facility] [address] [place] [id number] OFFICE VISIT Date of Service: 08/27/24 MR#: [id number] Acct: [id number] Name: PATRICIA PERSON Rep #: [id number] : 1990 Provider: AARON buenrostro Age/Sex: 33/F Location: [facility] Status: Signed Intake Vital Signs 12/03/23 14:06 08/27/24 08:47 Height 5 ft 6 in 5 ft 6 in Weight: 137 lb BMI 22.1 BP 133/77 H Intake Visit Reasons: LMP 06/29 ALDAIR 04/05 Giving Officer Required: No Is patient in pain?: No Feel stressed/tense/nerv ous/anxious/difficu lty sleeping: not at all Allergies No Known Allergies Allergy (Unverified 08/27/24 08:45) Medications ???Medication ???Instructions ???Recorded ???Confirmed ???Type calcium carbonate 600 mg PO DAILY 08/26/23 08/27/24 History vits no.126-ferrous fum tab PO 08/10/24 08/27/24 History 28 mg iron-folic acid 800 mcg tablet (Classic ) Last Menstrual Period: 06/29/24 Zika: Zika virus screening: Negative : No Have you fallen in the past year?: No PFSH PFSH Medical History Hypocalcemia Surgical History H/O wisdom tooth extraction Family History Other Celiac disease Diabetes Heart disease Social History adopted: No household members: spouse 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 occupational 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: No pets and animals: Yes history of recent travel: Yes ([place], [place], [place], [place] (May 2024)) details: [place] (Summer 2023), [place] (Jun 2024) out of state: Yes out of country: Yes sexually active: Yes Smoking Status: Never smoker alcohol intake: never substance use type: does not use well-balanced diet: daily or most days caffeine: No eating out: rarely or never during the past year weight has: remained stable what type of physical activity do you participate in: none bj/synagogue: Evangelical seatbelt use: always do you feel safe at home: Yes additional social history: : [employer]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 OB Visit ALDAIR Calculator Estimated Delivery Date Method Current WG Current Estimate 04/05/25 LMP (Certain) 8w 3d Estimated Due Date: 04/05/25 Expected Delivery Route/Plan Labor Preferences- CB/BF classes: [] labor support person: [] labor intervention preferences: [] pain management options preferred: [] cut cord/dad catch: [] : [] PP control planned: [] discussed possible routes of delivery and associated risks: [] special requests: [] Specific Issue/Plans Covid status: [] Flu vaccine: [] Tdap vaccine: [] Rhogam: [] LARC form signed: [] Problem list reviewed and updated with the most current plan of care details and appropriate orders placed. Relevant counseling for the gestational age provided. Continue routine care and follow up unless otherwise noted in visit notes/problem list details Initial Weight: Not Recorded Date -???-???-???-???-?? ?-???-???-???-???-? ??-???-???- EGA Weight BP Urine Prot -???-???-???-???-?? ?-???-???-???-???-? ??-???-???- Glucose FHR FuHt Pres Dilation -???-???-???-???-?? ?-???-???-???-???-? ??-???-???- Effaced St Visit Note 08/27/24 -???-???-???-???-?? ?-???-???-???-???-? ??-???-???- 8w 3d 137 lb (+0 oz) 133/77 -???-???-???-???-?? ?-???-???-???-???-? ??-???-???- 171 -???-???-???-???-?? ?-???-???-???-???-? ??-???-???- LC- CRL 1.8 con with LMP. declines nipt. BMP ordered for hypocalemia. Menstrual History Last Menstrual Period: 06/29/24 Reported LMP: definite Normal amount/duration: Yes Frequency in days: 31 On hormonal BC at conception: No hCG+: 07/27/24 Antepartum Record Genetic Screening: Congenital Heart Defect: Other, Neural Tube Defect: Other, Hemoglobinopathy Or Carrier: Other, Cystic Fibrosis: Other, Chromosome Abnormality: Other, Gabe-Sachs: Other, Hemophilia: Other, Intellectual Disability/Autism: Other, Recurrent Loss/Stillbirth: Other, Other Structural Defect: Other, Other Genetic Disease: Other and Maternal Metabolic Disorder: Other Infection History: Live with someone with TB or Exposed to TB: No, Patient or Partner has history of Genital Herpes: No, Rash or Viral illness since last mentrual period: No, Prior GBS-Infected child: No, H (more content not included)... Normal [facility] Rubella IgGon 08-27-2024 Rubella IgG Reactive Normal Nonreactive [facility] Comment on above: Order Comment: Reaso n for Exam: Result Comment: Anti body Results Interpretation of Immune Status Non Reactive Presumed Non-Immune Equivocal Equivocal Reactive Presumed Immune Performed By: #### L 3890.6100, L3890.6005, L509.8000, L3890.6300, L100.0100, L509.4005, BTS #### [facility] [address] [place], [address] Type AND Screenon 08-27-2024 Ab SCREEN GEL PENDING Normal [facility] Comment on above: Order Comment: PN Performed By: #### L 3890.6100, L3890.6005, L509.8000, L3890.6300, L100.0100, L509.4005, BTS ####[facility] [address] [place], [place], [address] ABO and Rh group Nom (Bld) Blood group A Rh(D) positive Normal [facility] Comment on above: Order Comment: PN Performed By: #### L 3890.6100, L3890.6005, L509.8000, L3890.6300, L100.0100, L509.4005, BTS ####[facility] [address] [place], [place], [id number] Absolute lymphocyte countOrd ered By: Luigi Santos on 08-25-2023 Lymphocytes Auto (Unsp spec) [#/Vol] 1.58 10*3/uL 0.83-4.51 [facility] Basophil percentageOrdered B y: Luigi Santos on 08-25-2023 Basophils/100 WBC (Bld) 0.9 % 0-1 [facility] Bilirubin [Mass/Vol] 0.40 mg/dL 0.20-1.00 [facility] Comment on above: For patients on eltr ombopag therapy, use of Dimension [place] TBIL is not recommended. Chloride [Moles/Vol] 107 mmol/L 98-107 [facility] Eosinophils/100 WBC (Bld) 1.3 % 0-5 [facility] Glucose [Mass/Vol] 95 mg/dL 74-[address] [facility] Neutrophils (Bld) [#/Vol] 2.5 10*3/uL 2.0-7.7 [facility] Neutrophils/100 WBC (Bld) 54.2 % 47-70 [facility] Potassium [Moles/Vol] 4.0 mmol/L 3.5-5.1 [facility] Protein [Mass/Vol] 7.0 g/dL 6.4-8.[address] [facility] Sodium [Moles/Vol] 140 mmol/L 136-[address] [facility] WBC (Bld) [#/Vol] 4.6 10*3/uL 4.4-11.[address] [facility] Blood erythrocytes count (nu mber/volume)Ordered By: Luigi Santos on 08-25-2023 RBC (Bld) [#/Vol] 4.31 10*6/uL 4.2-5.4 [facility] Blood hemoglobin measurement (mass/volume)Ordered By: Luigi Santos on 08-25-2023 Hemoglobin (Bld) [Mass/Vol] 11.3 g/dL 12.0-15.0 [facility] Blood lymphocytes/100 leukoc ytesOrdered By: beverly Santos on 08-25-2023 Lymphocytes/100 WBC (Bld) 34.1 % 19-41 [facility] Blood monocytes/100 leukocyt esOrdered By: edsonnorth tazewellemily Santos on 08-25-2023 Monocytes/100 WBC (Bld) 9.3 % 0-10 [facility] Blood platelet mean volumeOr dered By: Luigi Santos on 08-25-2023 Platelet mean volume (Bld) [Entitic vol] 11.1 fL 6.2-12.0 [facility] Determination of erythrocyte mean corpuscular volume (MCV)Ordered By: Luigi Santos on 08-25-2023 MCV (RBC) [Entitic vol] 86.8 fL 81-99 [facility] Hematocrit Auto (Bld) [Volum e fraction]Ordered By: Luigi Santos on 08-25-2023 Hematocrit (Bld) [Volume fraction] 37.4 % 37-47 [facility] Laboratory - Chemistry and C hemistry - challengeOrdered By: edsonnorth tazewellemily Santos on 08-25-2023 ALP [Catalytic activity/Vol] 63 U/L 45-117 [facility] ALT [Catalytic activity/Vol] 20 U/L 13-56 [facility] CO2 [Moles/Vol] 28.0 mmol/L 21.0-32.0 [facility] Globulin (S) [Mass/Vol] 3.4 g/dL 2.2-4.2 [facility] Urea nitrogen/Creatinine [Mass ratio] 13.5 mg/mg 10-20 [facility] Laboratory - Hematology and Cell countsOrdered By: Luigi Santos on 08-25-2023 Erythrocyte distribution width (RBC) [Entitic vol] 45.9 fL 35.1-43.9 [facility] Erythrocyte distribution width (RBC) [Ratio] 14.4 % 11.6-14.6 [facility] Immature granulocytes/100 WBC (Bld) 0.200 % 0.0-0.9 [facility] Comment on above: IG% - Immature Granu locytes (promyelocytes, myelocytes and metamyelocytes) > 1% indicates that a LEFT SHIFT is Present. MCH (RBC) [Entitic mass] 26.2 pg 27.0-32.0 [facility] Nucleated RBC/100 WBC (Bld) [Ratio] 0 % 0-5 [facility] MCHC Auto (RBC) [Mass/Vol]Or dered By: Luigi Santos on 08-25-2023 MCHC (RBC) [Mass/Vol] 30.2 g/dL 32-36 [facility] No Panel InformationOrdered By: Luigi Santos on 08-25-2023 Estimated GFR (MDRD) Amer 118 mL/min >60 [facility] Comment on above: GFR Calc Estimated GFR (MDRD) Non-Af Amer 97 mL/min >60 [facility] Comment on above: Non- GFR Calc Vitamin D 25-Hydroxy 29.0 ng/mL [facility] Comment on above: Vitamin D 25(OH) Sta tus Range Deficiency <20 ng/mL (50nmol/L) Insufficiency 20 - 30 ng/mL (50 - 75 nmol/L) Sufficiency 30 - 100 ng/mL (75 - 250 nmol/L) Toxicity >100 ng/mL (>250 nmol/L) Platelets bldOrdered By: Tim Santos on 08-25-2023 Platelets (Bld) [#/Vol] 218 10*3/uL 150-450 [facility] Serum or plasma albumin anamika urement (mass/volume)Ordered By: Luigi Santos on 08-25-2023 Albumin [Mass/Vol] 3.6 g/dL 3.2-5.[address] [facility] Serum or plasma albumin/glob ulin mass ratioOrdered By: Luigi Santos on 08-25-2023 Albumin/Globulin [Mass ratio] 1.1 {ratio} 0.9-2.4 [facility] Serum or plasma calcium anamika urement (mass/volume)Ordered By: Luigi Santos on 08-25-2023 Calcium [Mass/Vol] 8.1 mg/dL 8.5-10.[address] [facility] Serum or plasma creatinine m easurement (mass/volume)Ordered By: Darrylnorth tazewellemily Santos on 08-25-2023 Creatinine [Mass/Vol] 0.74 mg/dL 0.55-1.02 [facility] Comment on above: The validity of the calculated GFR & GFRAA in patients over 70 years has not been determined. Clinical correlation is essential. Serum or plasma urea nitroge n measurement (mass/volume)Ordered By: Luigi Santos on 08-25-2023 Urea nitrogen [Mass/Vol] 10 mg/dL 7-18 [facility] Thin prep Papanicolaou smear with manual screeningOrdered By: Luigi Santos on 08-25-2023 Thin prep Papanicolaou smear with manual screening 16 U/L 15-37 [facility] Thin prep Papanicolaou smear with manual screening 5 5-15 [facility] Laboratory - Microbiology an d Antimicrobial susceptibilityon 05-19-2023 SARS-CoV-2 (COVID-19) RNA PEG+probe Ql (Unsp spec) Detected [facility] GLUon 06-13-2017 Glucose mass conc 90 mg/dL Normal 70-105 [facility] ([place]) Comment on above: Performed By: #### Javy ALMEIDA, LIPID ####[address] [place], [place] [address] LIPIDon 06-13-2017 Cholesterol 179 mg/dL Normal 131-200 [facility] ([place]) Comment on above: Result Comment: Chol esterol Reference Interval:Less than 200 [id number] Borderline high szlu113 and above High risk Performed By: #### Javy ALMEIDA, LIPID ####[address] [place], [place] [address] HDL Cholesterol 80 mg/dL Normal 35-90 [facility] ([place]) Comment on above: Result Comment: HDL Reference Interval:Less than 40 Low - high risk60 or above Optimal/lowers risk Performed By: #### Javy ALMEIDA, LIPID ####[address] [place], [place] [address] LDL Cholesterol 90 mg/dL Normal 0-130 [facility] ([place]) Comment on above: Result Comment: LDL is a calculated result and requires a 12-hr fast.LDL Reference Interval:Less than 100 [id number] Near or above -085 Borderline high [id number] High izin501 and above Very high risk Performed By: #### Javy ALMEIDA, LIPID ####[address] [place], [place] [address] Triglyceride 45 mg/dL Normal 40-150 [facility] ([place]) Comment on above: Result Comment: Trig lyceride Reference Interval:Less than 150 [id number] Borderline high hhpr201-719 High qbzg677 or higher Very high risk Performed By: #### Javy ALMEIDA, LIPID ####[address] [place], [place] [address] Vital Signs Date Time Vital Sign Value Performing Clinician Facility 03-29-2025 13:32-0400 Body height 167.[address] Luigi Santos MD Work Phone: [facility] 03-29-2025 13:27-0400 Body mass index (BMI) [Ratio] 24.7 kg/m2 Dr. Luigi Santos MD Work Phone: [facility] 03-29-2025 13:27-0400 Body weight 69.[address] Luigi Santos MD Work Phone: [facility] 03-29-2025 13:27-0400 Diastolic blood pressure 74 mm[Hg] Dr. Luigi Santos MD Work Phone: [facility] 03-29-2025 13:27-0400 Systolic blood pressure 127 mm[Hg] Dr. Luigi Santos MD Work Phone: [facility] 03-25-2025 13:03-0400 Body height 167.[address] Luigi Santos MD Work Phone: [facility] 03-25-2025 13:03-0400 Body mass index (BMI) [Ratio] 24.7 kg/m2 Dr. Luigi Santos MD Work Phone: [facility] 03-25-2025 13:03-0400 Body weight 69.[address] Luigi Santos MD Work Phone: [facility] 03-25-2025 13:03-0400 Diastolic blood pressure 75 mm[Hg] Dr. Luigi Santos MD Work Phone: [facility] 03-25-2025 13:03-0400 Systolic blood pressure 125 mm[Hg] Dr. Luigi Santos MD Work Phone: [facility] 03-17-2025 09:21-0400 Body height 167.[address] Luigi Santos MD Work Phone: [facility] 03-17-2025 09:20-0400 Body mass index (BMI) [Ratio] 24.8 kg/m2 Dr. Luigi Santos MD Work Phone: [facility] 03-17-2025 09:20-0400 Body weight 69.[address] Luigi Santos MD Work Phone: [facility] 03-17-2025 09:20-0400 Diastolic blood pressure 74 mm[Hg] Dr. Luigi Santos MD Work Phone: [facility] 03-17-2025 09:20-0400 Systolic blood pressure 131 mm[Hg] Dr. Luigi Santso MD Work Phone: [facility] 03-08-2025 09:57-0400 Body height 167.[address] Luigi Santos MD Work Phone: [facility] 03-08-2025 09:57-0400 Body mass index (BMI) [Ratio] 24.4 kg/m2 Dr. Luigi Santos MD Work Phone: [facility] 03-08-2025 09:57-0400 Body weight 68.[address] Luigi Santos MD Work Phone: [facility] 03-08-2025 09:57-0400 Diastolic blood pressure 68 mm[Hg] Dr. Luigi Santos MD Work Phone: [facility] 03-08-2025 09:57-0400 Systolic blood pressure 112 mm[Hg] Dr. Luigi Santos MD Work Phone: [facility] 02-25-2025 15:10-0400 Body height 167.[address] Liugi Santos MD Work Phone: [facility] 02-25-2025 15:08-0400 Body mass index (BMI) [Ratio] 24.5 kg/m2 Dr. Luigi Santos MD Work Phone: [facility] 02-25-2025 15:08-0400 Body weight [address] Luigi Santos MD Work Phone: [facility] 02-25-2025 15:08-0400 Diastolic blood pressure 71 mm[Hg] Dr. Luigi Santos MD Work Phone: [facility] 02-25-2025 15:08-0400 Systolic blood pressure 115 mm[Hg] Dr. Luigi Santos MD Work Phone: [facility] 02-08-2025 13:57-0400 Body mass index (BMI) [Ratio] 24.1 kg/m2 Dr. Luigi Santos MD Work Phone: [facility] 02-08-2025 13:57-0400 Body weight 67.[address] Luigi Santos MD Work Phone: [facility] 02-08-2025 13:57-0400 Diastolic blood pressure 72 mm[Hg] Dr. Luigi Santos MD Work Phone: [facility] 02-08-2025 13:57-0400 Systolic blood pressure 126 mm[Hg] Dr. Luigi Santos MD Work Phone: [facility] 01-28-2025 14:53-0400 Body mass index (BMI) [Ratio] 24.5 kg/m2 Dr. Luigi Santos MD Work Phone: [facility] 01-28-2025 14:53-0400 Body weight [address] Luigi Santos MD Work Phone: [facility] 01-28-2025 14:53-0400 Diastolic blood pressure 69 mm[Hg] Dr. Luigi Santos MD Work Phone: [facility] 01-28-2025 14:53-0400 Systolic blood pressure 110 mm[Hg] Dr. Luigi Santos MD Work Phone: [facility] 01-11-2025 14:33-0400 Body height 167.[address] Luigi Santos MD Work Phone: [facility] 01-11-2025 14:30-0400 Body mass index (BMI) [Ratio] 24.4 kg/m2 Dr. Luigi Santos MD Work Phone: [facility] 01-11-2025 14:30-0400 Body weight 68.[address] Luigi Santos MD Work Phone: [facility] 01-11-2025 14:30-0400 Diastolic blood pressure 71 mm[Hg] Dr. Luigi Santos MD Work Phone: [facility] 01-11-2025 14:30-0400 Systolic blood pressure 122 mm[Hg] Dr. Luigi Santos MD Work Phone: [facility] 12-16-2024 09:41-0500 Body height 167.[address] Luigi Santos MD Work Phone: [facility] 12-16-2024 09:41-0500 Body mass index (BMI) [Ratio] 23.8 kg/m2 Dr. Luigi Santos MD Work Phone: [facility] 12-16-2024 09:41-0500 Body weight 67.[address] Luigi Santos MD Work Phone: [facility] 12-16-2024 09:41-0500 Diastolic blood pressure 74 mm[Hg] Dr. Luigi Santos MD Work Phone: [facility] 12-16-2024 09:41-0500 Systolic blood pressure 118 mm[Hg] Dr. Luigi Santos MD Work Phone: [facility] 11-18-2024 14:02-0500 Body mass index (BMI) [Ratio] 23.3 kg/m2 Dr. Luigi Santos MD Work Phone: [facility] 11-18-2024 14:02-0500 Body weight 65.[address] Luigi Santos MD Work Phone: [facility] 11-18-2024 14:02-0500 Diastolic blood pressure 71 mm[Hg] Dr. Luigi Santos MD Work Phone: [facility] 11-18-2024 14:02-0500 Systolic blood pressure 123 mm[Hg] Dr. Luigi Santos MD Work Phone: [facility] 10-21-2024 15:50-0500 Body mass index (BMI) [Ratio] 22.6 kg/m2 Dr. Luigi Santos MD Work Phone: [facility] 10-21-2024 15:50-0500 Body weight 63.[address] Luigi Santos MD Work Phone: [facility] 10-21-2024 15:50-0500 Diastolic blood pressure 63 mm[Hg] Dr. Luigi Santos MD Work Phone: [facility] 10-21-2024 15:50-0500 Systolic blood pressure 121 mm[Hg] Dr. Luigi Santos MD Work Phone: [facility] 09-24-2024 10:00-0500 Body mass index (BMI) [Ratio] 22.2 kg/m2 Dr. Luigi Santos MD Work Phone: [facility] 09-24-2024 10:00-0500 Body weight 62.[address] Luigi Santos MD Work Phone: [facility] 09-24-2024 10:00-0500 Diastolic blood pressure 73 mm[Hg] Dr. Luigi Santos MD Work Phone: [facility] 09-24-2024 10:00-0500 Systolic blood pressure 131 mm[Hg] Dr. Luigi Santos MD Work Phone: [facility] 08-25-2023 10:03-0500 Body height 167.[address] Luigi Santos Work Phone: [facility] 08-25-2023 10:03-0500 Body mass index (BMI) [Ratio] 21.3 kg/m2 Dr. Luigi Santos Work Phone: [facility] 08-25-2023 10:03-0500 Body temperature 98.3 [degF] Dr. Luigi Santos Work Phone: [facility] 08-25-2023 10:03-0500 Body weight 59.[address] Luigi Santos Work Phone: [facility] 08-25-2023 10:03-0500 Diastolic blood pressure 60 mm[Hg] Dr. Luigi Santos Work Phone: [facility] 08-25-2023 10:03-0500 Heart rate 50 /min Dr. Luigi Santos Work Phone: [facility] 08-25-2023 10:03-0500 Respiratory rate 16 /min Dr. Luigi Santos Work Phone: [facility] 08-25-2023 10:03-0500 SaO2% (BldA) [Mass fraction] 98 % Dr. Luigi Santos Work Phone: [facility] 08-25-2023 10:03-0500 Systolic blood pressure 102 mm[Hg] Dr. Luigi Santos Work Phone: [facility] 05-19-2023 10:12-0400 Body mass index (BMI) [Ratio] 20.3 kg/m2 Dr. Luigi Santos Work Phone: [facility] 05-19-2023 10:12-0400 Body temperature 100.2 [degF] Dr. Luigi Santos Work Phone: [facility] 05-19-2023 10:12-0400 Body weight 57.[address] Luigi Santos Work Phone: [facility] 05-19-2023 10:12-0400 Diastolic blood pressure 64 mm[Hg] Dr. Luigi Santos Work Phone: [facility] 05-19-2023 10:12-0400 Heart rate 103 /min Dr. Luigi Santos Work Phone: [facility] 05-19-2023 10:12-0400 Respiratory rate 16 /min Dr. Luigi Santos Work Phone: [facility] 05-19-2023 10:12-0400 SaO2% (BldA) [Mass fraction] 98 % Dr. Luigi Santos Work Phone: [facility] 05-19-2023 10:12-0400 Systolic blood pressure 118 mm[Hg] Dr. Luigi Santos Work Phone: [facility] Encounters Encounter Date Encounter Type Care Provider Facility Start: 03-29-2025 End: 03-29-[address] Luigi Santos MD Work Phone: [facility] Work Phone: Start: 03-29-2025 End: 03-29-[address] Jana Santiago DO [facility] Work Phone: Start: 03-25-2025 End: 03-25-[address] Jana Santiago DO -[facility] Work Phone: Start: 03-25-2025 End: 03-25-[address] Luigi Santos MD Work Phone: [facility] Work Phone: Start: 03-17-2025 End: 03-17-[address] Marie Dockery MD -[facility] Work Phone: Start: 03-17-2025 End: 03-17-[address] Luigi Santos MD Work Phone: [facility] Work Phone: Start: 03-09-2025 End: 03-09-[address] Luigi Santos MD Work Phone: [facility] Work Phone: Start: 03-09-2025 End: 03-09-[address] Jana Santiago DO -[facility] Work Phone: Start: 03-08-2025 End: 03-08-[address] Luigi Santos MD Work Phone: [facility] Work Phone: Start: 03-08-2025 End: 03-08-2025 Patient encounter procedure Martha Novoa MANAGER DIALYSIS-C -Laboratory Specimen Work Phone: Start: 03-08-2025 End: 03-08-2025 Patient encounter procedure Martha Novoa MANAGER DIALYSIS-C -[facility] Work Phone: Start: 03-08-2025 End: 03-09-[address] Luigi Santos MD Work Phone: [facility] Work Phone: Start: 03-08-2025 End: 03-08-2025 ambulatory Luigi Santos Facility:[facility] Start: 02-25-2025 End: 02-25-[address] Jana Santiago DO -[facility] Work Phone: Start: 02-25-2025 End: 02-25-[address] Luigi Santos MD Work Phone: [facility] Work Phone: Start: 02-08-2025 End: 02-08-2025 Patient encounter procedure Talia Loredo CNM -[facility] Work Phone: Start: 02-08-2025 End: 02-08-20[facility] Start: 01-28-2025 End: 01-28-[address] Marie Dockery MD -[facility] Work Phone: Start: 01-28-2025 End: 01-28-2025 [facility] Start: 01-11-2025 End: 01-11-[address] Jana Santiago DO -[facility] Work Phone: Start: 01-11-2025 End: 01-11-2025 ambulatory Joss Danielle Facility:[facility] Start: 01-11-2025 End: 01-11-[address] Luigi Santos MD Work Phone: [facility] Work Phone: Start: 01-11-2025 End: 01-11-2025 Patient encounter procedure Martha Novoa MANAGER DIALYSIS-C -Laboratory Work Phone: Start: 01-11-2025 End: 01-11-2025 ambulatory [facility] Facility:[facility] Start: 01-04-2025 End: 01-04-[address] Luigi Santos MD Work Phone: [facility] Work Phone: Start: 01-04-2025 End: 01-04-2025 Patient encounter procedure Martha Novoa MANAGER DIALYSIS-C -Lab, [facility] Start: 01-04-2025 End: 01-04-2025 ambulatory [facility] Facility:[facility] Start: 12-16-2024 End: 12-16-[address] Marie Dockery MD -[facility] Work Phone: Start: 12-16-2024 End: 12-16-2024 ambulatory [facility] Facility:[facility] Start: 11-18-2024 End: 11-18-[address] Jana Santiago DO -[facility] Work Phone: Start: 11-18-2024 End: 11-18-2024 ambulatory [facility] Facility:[facility] Start: 11-09-2024 End: 11-09-2024 ambulatory JANA NICOLE [facility] Start: 10-21-2024 End: 10-21-2024 Patient encounter procedure Talia Loredo CNM -[facility] Work Phone: Start: 10-21-2024 End: 10-21-2024 ambulatory [facility] Facility:[facility] Start: 09-24-2024 End: 09-24-[address] Jana Santiago DO -[facility] Work Phone: Start: 09-24-2024 End: 09-24-2024 ambulatory Luigi Santos Facility:[facility] Start: 08-27-2024 End: 08-27-2024 ambulatory Sherrilynnette Carvalho Facility:[facility] Start: 08-27-2024 End: 08-27-2024 ambulatory [facility] Facility:[facility] Start: 08-10-2024 ambulatory Rylee Bledsoe Facility :[facility] Start: 08-26-2023 Non-patient / Non-visit Dr. Donovan Santos Work Phone: [facility] Work Phone: Start: 08-25-2023 End: 08-25-[address] Luigi Santos Work Phone: [facility] Work Phone: Start: 08-25-2023 End: 08-25-2023 Encounter for general adult medical examination without abnormal findings Dr. Luigi Santos Work Phone: [facility] Start: 08-25-2023 End: 08-25-[address] Luigi Santos Work Phone: [facility] Work Phone: Start: 05-19-2023 End: 05-19-[address] Luigi Santos Work Phone: [facility] Work Phone: Start: 06-13-[address] Luigi Santos Work Phone: [facility] Start: 06-13-2017 End: 06-18-2017 Ambulatory [facility] Facility[facility] Procedures Date Procedure Procedure Detail Performing Clinician Start: 03-09-2025 Ultrasound scan for growth Dr. Luigi Santos MD Work Phone: Start: 03-08-2025 Beta-hemolytic Streptococcus culture Dr. Luigi Santos MD Work Phone: Start: 01-04-2025 Serologic test for syphilis Dr. Luigi Santos MD Work Phone: Plan of Treatment Date Care Activity Detail Author Start: 04-06-2025 ambulatory Ambulatory Facility:[facility] Start: 08-25-2023 Patient referral [facility] Work Phone: Patient referral [facility] Work Phone: Streptococcus agalac tiae [Presence] in Unspecified specimen by Organism specific culture [facility] Immunizations Immunization Date Immunization Notes Care Provider Fa cility 01-11-2025 tetanus toxoid, redu lolly diphtheria toxoid, and acellular pertussis vaccine, adsorbed Dr. Luigi Santos MD Work Phone: [facility] Payers Date Payer Category Payer Unknown MMM [id number] 2024 Unknown [id number] 2024 Unknown [id number] 2024 Unknown . 2024 Private Health Insurance [id number] 2024 Self-pay [id number] 2017 Unknown [id number] Unknown [employer] [id number] Unknown [facility] [id number] Unknown [facility] [id number] Unknown [id number] [id number] 2 Unknown [id number] 2.16.840.1.628320.3.579.2.46 2 Unknown [id number] 2.16.840.1.669329.3.579.2.46 2 Unknown [id number] 2.16.840.1.688532.3.579.2.46 2 Unknown [id number] 2.16.840.1.306424.3.579.2.46 2 Unknown [id number] 2.16.840.1.350790.3.579.2.46 2 Unknown [id number] 2.16.840.1.072407.3.579.2.46 2 Unknown [id number] 2.16.840.1.418001.3.579.2.46 2 Unknown [id number] 2.16.840.1.563803.3.579.2.46 2 Unknown [id number] 2.16.840.1.239155.3.579.2.46 2 Unknown [id number] 2.16.840.1.125172.3.579.2.46 2 Unknown [id number] 2.16.840.1.466793.3.579.2.46 2 Unknown [id number] 2.16.840.1.756509.3.579.2.46 2 Unknown [id number] 2.16.840.1.254108.3.579.2.46 2 Unknown [id number] 2.16.840.1.131566.3.579.2.46 2 Unknown [id number] 2.16.840.1.558687.3.579.2.46 2 Unknown [id number] 2.16.840.1.330455.3.579.2.46 2 Unknown [id number] 2.16.840.1.928577.3.579.2.46 2 Unknown [id number] 2.16.840.1.440593.3.579.2.46 2 Social History Date Type Detail Facility Start: 08-25-2023 [facility] Start: 1990 Sex Assigned At Female [facility] Start: 08-10-2024 [facility] (finding) [facility] Start: 01-08-2025 End: 01-18-2025 Sex Female (finding) [facility] Medical Equipment Procedure Code Equipment Code Equipment Origin al Text Equipment Identifier Dates Blood Sugar Diagnostic (Blood Glucose Test) strip Start: 01-12-2025 Lancets misc Start: 01-12-2025 Blood Sugar Diagnostic (Blood Glucose Test) strip Start: 01-12-2025 Lancets misc Start: 01-12-2025 Blood Sugar Diagnostic (Blood Glucose Test) strip Start: 01-12-2025 Lancets misc Start: 01-12-2025 Blood Sugar Diagnostic (Blood Glucose Test) strip Start: 01-12-2025 Lancets misc Start: 01-12-2025 Blood Sugar Diagnostic (Blood Glucose Test) strip Start: 01-12-2025 Lancets misc Start: 01-12-2025 Blood Sugar Diagnostic (Blood Glucose Test) strip Start: 01-12-2025 Lancets misc Start: 01-12-2025 Blood Sugar Diagnostic (Blood Glucose Test) strip Start: 01-12-2025 Lancets misc Start: 01-12-2025 Blood Sugar Diagnostic (Blood Glucose Test) strip Start: 01-12-2025 Lancets misc Start: 01-12-2025 Clinical Notes 09-24-2024 to 03-17-2025 Note Date & Type Note Facility 03-17-2025 Progress note [facility] 03-10-2025 Radiology Diagnostic study note [facility] Imaging Services [address] [place] [address] OB Limited With Biometrics MR#: [id number] Acct: [id number] Name: PATRICIA PERSON Rep #: [id number] : 1990 F 34 From: Greg Baltazar MD PCP: Dr. Luigi Santos MD Status: R EG CLI Study:OB Limited With Biometrics Date of Exam : 03/09/25 Exam# [id number] Ordering Dr: Jana De Souza DO PROCEDURE: OB LIMITED WITH BIOMETRICS 03/09/2025 REASON FOR EXAM: 36 WK GROWTH TECHNIQUE: High resolution obstetric ultrasound performed using a 2D transducer. Standard views obtained, including biometry, anatomy survey, and Doppler studies. FINDINGS Number: 1 Position: Vertex Placental Position: Fundal and left lateral. Not low-lying. Placental Abnormalities: None DIMENSIONS: Biparietal Diameter: 8.73 cm: 35 weeks and 2 days: 34 percentile/ Head Circumference: 33.07 cm: 37 weeks and 5 days: 58 percentile/ Abdominal Circumference: 33.39 cm: 37 weeks and 2 days: 87 percentile/ Femur Length: 6.68 cm: 34 weeks and 3 days: 9 percentile/ ESTIMATED WEIGHT: 2903 g plus/-435 g ESTIMATED WEIGHT PERCENTILE (24+ weeks): 56 percentile ESTIMATED GESTATIONAL AGE: Baseline: 36 weeks and 1 day By Ultrasound: 36 weeks and 2 days ESTIMATED DATE OF DELIVERY: Baseline: April 05, 2025 By Ultrasound: April 04, 2025 BIOPHYSICAL ASSESSMENT: Amniotic Fluid Volume: 3.6 cm Amniotic Fluid Index: 12.3 (8-24 cm normal range) Cardiac Motion: 144 beats per minute (average) Trunk and Limb Motion: Present. MATERNAL ANATOMY: Adnexa: Neither maternal ovary is successfully identified. US/OB Limited With Biometrics IMPRESSION: Single live intrauterine gestation with a mean gestational age of 36 weeks and 2days. Reading Location: [id number] CC: Dr. Luigi Santos MD; Dr. Jana Santiago DO ~ Data Conversion Analyst: Signed [facility] 12-16-2024 Evaluation note Diagnosis Onset Date Resolution Hypocalcemia acute December 16 025 9:35am acute December 16 9:35am Supervision of normal acute December 16, 2024 9:35am Gestational diabetes acute Apr2024 2:27pm Hypocalcemia acute January 11, 025 2:27pm acute January 11 2:27pm Supervision of normal acute January 11, 2025 2:27pm Abnormal glucose deleted January 2:27pm Gestational diabetes acute Apri l 2024 2:50pm Hypocalcemia acute January 28, 2025 2:50pm acute January 28 2:50pm Supervision of normal acute January 28, 2025 2:50pm Abnormal glucose deleted January 282024 2:50pm Gestational diabetes acute Apri l 2024 1:52pm Hypocalcemia acute February 08, 2025 1:52pm acute February 08 1:52pm Supervision of normal acute February 08, 2025 1:52pm Abnormal glucose deleted February 082024 1:52pm Gestational diabetes acute February 25, 2025 2:44pm Hypocalcemia acute February 25 2:44pm acute February 25, 2025 2:44pm Supervision of normal acute February 25, 2025 2 :44pm Abnormal glucose deleted February 2:44pm Gestational diabetes acute March 08, 2025 9:55am Hypocalcemia acute March 08 9:55am acute March 08, 2025 9:55am Supervision of normal acute March 08, 2025 9 :55am Gestational diabetes acute March 17, 2025 9:14am Hypocalcemia acute March 17 9:14am acute March 17, 2025 9:14am Supervision of normal acute March 17, 2025 9 :14am Gestational diabetes acute March 25, 2025 12:59pm Hypocalcemia acute March 25, 2 025 12:59pm acute March 25 12:59pm Supervision of normal acute March 25, 2025 12:59pm [facility] Work Phone: 1(801) 640-101803-06-2025 Evaluation note* Diagnosis Onset Date Resolution Status Admit Date Hypocalcemia acute December 16, 2 025 9:35am acute December 16 9:35am Supervision of normal acut e December 16, 2024 9:35am Gestational diabetes acute 2024 2:27pm Hypocalcemia acute January 11, 2 025 2:27pm acute January 11 2:27pm Supervision of normal acut e January 11, 2025 2:27pm Abnormal glucose deleted January 2:27pm Gestational diabetes acute Apri l 2024 2:50pm Hypocalcemia acute January 28, 2025 2:50pm acute January 28 2:50pm Supervision of normal acut e January 28, 2025 2:50pm Abnormal glucose deleted January 282024 2:50pm Gestational diabetes acute Apri l 2024 1:52pm Hypocalcemia acute February 08, 2025 1:52pm acute February 08 1:52pm Supervision of normal acut e February 08, 2025 1:52pm Abnormal glucose deleted February 082024 1:52pm Gestational diabetes acute February 25, 2025 2:44pm Hypocalcemia acute February 25 2:44pm acute February 25, 2025 2:44pm Supervision of normal acut e February 25, 2025 2:44pm Abnormal glucose deleted February 2:44pm Gestational diabetes acute March 08, 2025 9:55am Hypocalcemia acute March 08 9:55am acute March 08, 2025 9:55am Supervision of normal acut e March 08, 2025 9:55am Gestational diabetes acute March 17, 2025 9:14am Hypocalcemia acute March 17 9:14am acute March 17, 2025 9:14am Supervision of normal acut e March 17, 2025 9:14am Gestational diabetes acute March 25, 2025 12:59pm Hypocalcemia acute March 25, 2 025 12:59pm acute March 25 12:59pm Supervision of normal acut e March 25, 2025 12:59pm Gestational diabetes acute March 29, 2025 1:24pm Hypocalcemia acute March 29, 2 025 1:24pm acute March 29 1:24pm Supervision of normal acut e March 29, 2025 1:24pm [facility] Work Phone: 1(731) 392-749302-06-2025 Evaluation note* Diagnosis Onset Date Resolution Status Admit Date Hypocalcemia acute November 1:57pm acute November 18, 2024 1:57pm Supervision of normal acute November 18 1:57pm Hypocalcemia acute December 16, 2 025 9:35am acute December 16 9:35am Supervision of normal acute December 16, 2024 9:35am Abnormal glucose acute January 2:27pm Gestational diabetes acute 2024 2:27pm Hypocalcemia acute January 11, 2 025 2:27pm acute January 11 2:27pm Supervision of normal acute January 11, 2025 2:27pm Abnormal glucose acute January 282024 2:50pm Gestational diabetes acute Apri l 2024 2:50pm Hypocalcemia acute January 28, 2025 2:50pm acute January 28 2:50pm Supervision of normal acute January 28, 2025 2:50pm Abnormal glucose acute February 082024 1:52pm Gestational diabetes acute Apr2024 1:52pm Hypocalcemia acute February 08, 2025 1:52pm acute February 08 1:52pm Supervision of normal acute February 08, 2025 1:52pm Abnormal glucose acute February 2:44pm Gestational diabetes acute February 25, 2025 2:44pm Hypocalcemia acute February 25 2:44pm acute February 25, 2025 2:44pm Supervision of normal acute February 25, 2025 2 :44pm [facility] Work Phone: 1(410) 984-435902-06-2025 Evaluation note* Diagnosis Onset Date Resolution Status Admit Date Hypocalcemia acute November 1:57pm acute November 18, 2024 1:57pm Supervision of normal acute November 18 1:57pm Hypocalcemia acute December 16, 2 025 9:35am acute December 16 9:35am Supervision of normal acute December 16, 2024 9:35am Gestational diabetes acute Apr2024 2:27pm Hypocalcemia acute January 11, 2 025 2:27pm acute January 11 2:27pm Supervision of normal acute January 11, 2025 2:27pm Abnormal glucose deleted January 2:27pm Gestational diabetes acute Apri l 2024 2:50pm Hypocalcemia acute January 28, 2025 2:50pm acute January 28 2:50pm Supervision of normal acute January 28, 2025 2:50pm Abnormal glucose deleted January 282024 2:50pm Gestational diabetes acute Apri 2024 1:52pm Hypocalcemia acute February 08, 2025 1:52pm acute February 08 1:52pm Supervision of normal acute February 08, 2025 1:52pm Abnormal glucose deleted February 082024 1:52pm Gestational diabetes acute February 25, 2025 2:44pm Hypocalcemia acute February 25 2:44pm acute February 25, 2025 2:44pm Supervision of normal acute February 25, 2025 2 :44pm Abnormal glucose deleted February 2:44pm Gestational diabetes acute March 08, 2025 9:55am Hypocalcemia acute March 08 9:55am acute March 08, 2025 9:55am Supervision of normal acute March 08, 2025 9 :55am [facility] Work Phone: 1([phone]) 588-858502-06-2025 Evaluation note* Diagnosis Onset Date Resolution Status Admit Date Hypocalcemia acute November 1:57pm acute November 18, 2024 1:57pm Supervision of normal acute November 18 1:57pm Hypocalcemia acute December 16, 2 025 9:35am acute December 16 9:35am Supervision of normal acute December 16, 2024 9:35am Gestational diabetes acute 2024 2:27pm Hypocalcemia acute January 11, 2 025 2:27pm acute January 11 2:27pm Supervision of normal acute January 11, 2025 2:27pm Abnormal glucose deleted January 2:27pm Gestational diabetes acute Apri l 2024 2:50pm Hypocalcemia acute January 28, 2025 2:50pm acute January 28 2:50pm Supervision of normal acute January 28, 2025 2:50pm Abnormal glucose deleted January 282024 2:50pm Gestational diabetes acute Apri l 2024 1:52pm Hypocalcemia acute February 08, 2025 1:52pm acute February 08 1:52pm Supervision of normal acute February 08, 2025 1:52pm Abnormal glucose deleted February 082024 1:52pm Gestational diabetes acute February 25, 2025 2:44pm Hypocalcemia acute February 25 2:44pm acute February 25, 2025 2:44pm Supervision of normal acute February 25, 2025 2 :44pm Abnormal glucose deleted February 2:44pm Gestational diabetes acute March 08, 2025 9:55am Hypocalcemia acute March 08 9:55am acute March 08, 2025 9:55am Supervision of normal acute March 08, 2025 9 :55am Gestational diabetes acute March 17, 2025 9:14am Hypocalcemia acute March 17 9:14am acute March 17, 2025 9:14am Supervision of normal acute March 17, 2025 9 :14am [facility] Work Phone: 1(691) 605-627812-13-2024 Evaluation note* Diagnosis Onset Date Resolution Status Admit Date Hypocalcemia acute September 9:58am acute September 24, 2024 9:58am Supervision of normal acute September 24, 2 024 9:58am Hypocalcemia acute October 21, 2024 3:47pm acute October 21, 2 025 3:47pm Supervision of normal acute October 21 3:47pm Hypocalcemia acute November 1:57pm acute November 18, 2024 1:57pm Supervision of normal acute November 18 1:57pm Hypocalcemia acute December 16, 2 025 9:35am acute December 16 9:35am Supervision of normal acute December 16, 2024 9:35am [facility] Work Phone: 1(371) 996-622112-13-2024 Evaluation note* Diagnosis Onset Date Resolution Status Admit Date Hypocalcemia acute September 9:58am acute September 24, 2024 9:58am Supervision of normal acute September 24, 2 024 9:58am Hypocalcemia acute October 21, 2024 3:47pm acute October 21, 2 025 3:47pm Supervision of normal acute October 21 3:47pm Hypocalcemia acute February 6th , 2025 1:57pm acute November 18, 2024 1:57pm Supervision of normal acute November 18 1:57pm Hypocalcemia acute December 16, 2 025 9:35am acute December 16 9:35am Supervision of normal acute December 16, 2024 9:35am Abnormal glucose acute January 2:27pm Gestational diabetes acute 2024 2:27pm Hypocalcemia acute January 11, 2 025 2:27pm acute January 11 2:27pm Supervision of normal acute January 11, 2025 2:27pm [facility] Work Phone: Evaluation note* Diagnosis Onset Date Resolution Status COVID-19 acute Preventative health care acu te [facility] Work Phone: Progress note Author Marie Dockery [facility] Note Date/Time March 17, 2025 9:44a m [facility] [address] [place] [address], [address] [place] [address] OFFICE VISIT Date of Service: 03/17/25 MR#: [id number] Acct: [id number] Name: PATRICIA PERSON Rep #: [id number] : 1990 Provider: Dr. Francis Dockery MD Age/Sex: 34/F Location: [facility] Status: Signed Intake Vital Signs 10/21/24 15:57 03/08/25 09:57 03/17/25 09:20 03/17/25 09:21 Height 5 ft 6 in 5 ft 6 in 5 ft 6 in 5 ft 6 in Weight: 154 lb BMI 24.8 BP 131/74 H Intake Visit Reasons: 37 WK OB Giving Officer Required: No Is patient in pain?: No Allergies No Known Allergies Allergy (Verified 03/17/25 09:19) Medications ?Medication ?Instructions ?Recorded ?Confirmed ?Type calcium carbonate 600 mg PO DAILY 08/26/2303/06 History vits no.126-ferrous fum tab PO 08/10/2403/17 History 28 mg iron-folic acid 800 mcg tablet (Classic ) blood sugar diagnostic (Blood #120 ea 01/12/25 5 Rx Glucose Test strips) blood-glucose meter #1 ea 01/12/25 03/17/25 Rx lancets #200 ea 01/12/25 03/17/25 Rx Last Menstrual Period: 06/29/24 Zika: Zika virus screening: Negative : No PFSH PFSH Medical History Hypocalcemia Surgical History H/O wisdom tooth extraction Family History Other Celiac disease Diabetes Heart disease Social History adopted: No household members: spouse 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 occupational 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: No pets and animals: Yes history of recent travel: Yes ([place], [place], [place], [place] (May 2024)) details: [place] (Summer 2023), [place] (Jun 2024) out of state: Yes out of country: Yes sexually active: Yes Smoking Status: Never smoker alcohol intake: never substance use type: does not use well-balanced diet: daily or most days caffeine: No eating out: rarely or never during the past year weight has: remained stable what type of physical activity do you participate in: none bj/synagogue: Evangelical seatbelt use: always do you feel safe at home: Yes 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 OB Visit ALDAIR Calculator Estimated Delivery Date Method Current WG Current Estimate 04/05/25 LMP (Certain) 37w 2d Expected Delivery Route/Plan Labor Preferences- CB/BF classes: [] labor support person: miki labor intervention preferences: [] pain management options preferred: epidural cut cord/dad catch: probably not : yes PP control planned: [] discussed possible routes of delivery and associated risks: [] special requests: [] Specific Issue/Plans Covid status: [] Flu vaccine: [] Tdap vaccine: given Rhogam: na LARC form signed: declines movement and labor precautions reviewed. Problem list reviewed and updated with the most current plan of care details and appropriate orders placed. Relevant counseling for the gestational age provided. Continue routine care and follow up unless otherwise noted in visit notes/problem list details Initial Weight: Not Recorded Date -?-?-?-?-?-?-?-?-?-?-?-?- EGA Weight BP Urine Prot -?-?-?-?-?-?-?-?-?-?-?-?- Glucose FHR FuHt Pres Dilation -?-?-?-?-?-?-?-?-?-?-?-?- Effaced St Visit Note 08/27/24 -?-?-?-?-?-?-?-?-?-?-?-?- 8w 3d 137 lb (+0 oz) 133/77 -?-?-?-?-?-?-?-?-?-?-?-?- 171 -?-?-?-?-?-?-?-?-?-?-?-?- LC- CRL 1.8 con with LMP. declines nipt. BMP ordered for hypocalemia. 09/24/24 -?-?-?-?-?-?-?-?-?-?-?-?- 12w 3d 138 lb (+0 oz) 131/73 Negative -?-?-?-?-?-?-?-?-?-?-?-?- Negative 157 -?-?-?--?-?-?-?-?-?-?-?-?- JV- no complaint s today. declines NIPT. 10/21/24 -?-?-?-?-?-?-?-?-?-?-?-?- 16w 2d 140 lb (+0 oz) 121/63 Negative -?-?-?-?-?-?-?-?-?-?-?-?- Negative 145 -?-?-?-?-?-?-?-?-?-?-?-?- KW- no vb/crampi ng. US scheduled. no concerns 11/18/24 -?-?-?-?-?-?-?-?-?-?-?-?- 20w 2d 144 lb 4 oz (+0 oz) 123/71 Negative -?-?-?-?-?-?-?-?-?-?-?-?- Negative 140 -?-?-?-?-?-?-?-?-?-?-?-?- JV_ anatomy scan looks normal. no complaints today. 12/16/24 -?-?-?-?-?-?-?-?-?-?-?-?- 24w 2d 148 lb (+0 oz) 118/74 Negative -?-?-?-?-?-?-?-?-?--?-?-?- Negative 140 24 -?-?-?-?-?-?-?-?-?-?-?-?- SM- no vb lof go od fm nor egular ctx 01/11/25 -?-?-?-?-?-?-?-?-?-?-?-?- 28w 0d 151 lb 8 oz (+0 oz) 122/71 Negative -?-?-?-?-?-?-?-?-?-?-?-?- Negative 145 -?-?-?-?-?-?-?-?-?-?-?-?- JV- patient fail ed her 3 hr today. diagnosis of gestational diabetes and glucose parameters discussed. pt needs to purchase an otc device as does not have insurance. will send update on levels next week. 01/28/25 -?-?-?-?-?-?-?-?-?-?-?-?- 30w 3d 152 lb 2 oz (+0 oz) 110/69 Negative -?-?-?-?-?-?-?-?-?-?-?-?- Negative 145 30 -?-?-?-?-?-?-?-?-?--?-?-?- SM- n ovb lof go od fm sno regular ctx 02/08/25 -?-?-?-?-?-?-?-?-?-?-?-?- 32w 0d 149 lb 9 oz (+0 oz) 126/72 Negative -?-?-?-?-?-?-?-?-?-?-?-?- Negative 140 31 -?-?-?-?-?-?-?-?-?-?-?-?- KW- no vb/lof/ct x. good fm. BS reviewed and normal. Discussed cord blood banking 02/25/25 -?-?-?-?-?-?-?-?-?-?-?-?- 34w 3d 152 lb 2 oz (+0 oz) 115/71 Negative -?-?-?-?-?-?-?-?-?-?-?-?- Negative 137 33 -?-?-?-?-?-?-?-?-?-?-?-?- JV- has growth s can at 36 weeks. normal glucose log. no complaints. 03/08/25 -?-?-?-?-?-?-?-?-?-?-?-?- 36w 0d 151 lb 6 oz (+0 oz) 112/68 Negative -?-?-?-?-?-?-?-?-?-?-?-?- Negative 138 35 -?-?-?-?-?-?-?-?-?-?-?-?- MH-No VB, LOF. G ood Fm. GBS done. Growth US tomorrow. Glucose log reviewed and >80% wnl 03/17/25 -?-?-?-?-?-?-?-?-?-?-?-?- 37w 2d 154 lb (+0 oz) 131/74 Negative -?-?-?-?-?-?-?-?-?-?-?-?- Negative 140 36 -?-?-?-?-?-?-?-?-?-?-?-?- Sm- no vb lof go od fm n oregaulr ctx ACOG First Trimester First Trimester: Desire for , Alcohol, Tobacco Cessation, Illicit/Recreational Drug/Substance Use, Intimate Partner Violence, Barriers to care, Unstable Housing, Communication Barriers, Environmental/Work Hazards, Anticipated Course of Care, Toxoplasmosis Precations, Use of Any medications, Sexual activity, Exercise, Dental Care, Sauna/Hot tub use, Seat Belt use, Childbirth classes/Hospital facilities, Travel, Indications for Ultrasound and Screening for Aneuploidy; Discussed Results POC Urinalysis 2 Dip (Clinic) Office Urine Glucose Negative Last Edit by Yaquelin Russell on 03/17/25 09: 34 Office Urine Protein Negative Last Edit by Yaquelin Russell on 03/17/25 09: 34 Coding Level of Care Code OB Routine Diagnoses Diet controlled gestational diabetes mellitus (GDM) in third trimester O24.410 Gestational diabetes mellitus control: diet-controlled Trimester: third trimester Encounter for supervision of normal first in third trimester Z34.03 Normal : normal first Trimester: third trimester 37 weeks gestation of Z3A.37 Weeks of gestation: 37 weeks Hypocalcemia E83.51 Assessment and Plan Assessment and Plan (1) Gestational diabetes: Status: Acute Qualifiers: Gestational diabetes mellitus control: diet-controlled Trimester: third trimester Qualified Code(s): O24.410 - Gestational diabetes mellitus in , diet controlled Comment: diet ocntrolled, growth US at 36 discussed IOL by 39-40 (2) Supervision of normal : Status: Acute Qualifiers: Normal : normal first Trimester: third trimester Qualified Code(s): Z34.03 - Encounter for supervision of normal first , third trimester Comment: PRR . , ALDAIR 04/05/25, surprise : Miki (3) : Status: Acute Qualifiers: Weeks of gestation: 37 weeks Qualified Code(s): Z3A.37 - 37 weeks gestation of Comment: Neg GBS. Discussed genetic/carrier testing - declines. decline afp. normal anatomy (4) Hypocalcemia: Status: Acute Comment: BMP checked with NOB labs Orders: Orders POC Urinalysis 2 Dip (Clinic) Today 03/17/25 0944 <Electronically signed by Marie centeno MD> Date _ Marie Dockery MD Cosigner Signature: Date (if applicable) CC: ~ [facility] Work Phone: Reason for referral (narrative)No reason for referral information availableWCleveland Clinic Foundation Work Phone: Summary Purpose Family History Relationship Condition Age at Onset Recorded Date/T orestes Not Specified Diabetes mellitus Unknown Cardiac disease Unknown Celiac disease Unknown Cerebrovascular accident (CVA) Unknown Relationship Condition Age at Onset Recorded Date/T orestes Not Specified Diabetes mellitus Unknown Cardiac disease Unknown Celiac disease Unknown Advance Directives No Advanced Directives Records FoundNo Advanced Directives Records FoundNo Advanced Directives Records Found Chief Complaint and Reason for Visit Chief Complaint POS HOME TEST/REQUES T PCR WELLNESS VISIT Amb Documentation Reason for Visit COVID-19 Preventative health care Chief Complaint Admit Date 12wk OB September 24, 2024 9:58am 16 WK OB October 21, 2024 3: 47pm 20 WK OB November 18, 2024 1 :57pm 24 WK OB December 16, 2024 9:35 am Reason for Visit Admit Date Hypocalcemia September 24, 2024 9:58am September 24, 2024 9:58am Supervision of normal September 24, 2024 9:58am Hypocalcemia October 21, 2024 3: 47pm October 21, 2024 3: 47pm Supervision of normal October 21, 2024 3:47pm Hypocalcemia November 18, 2024 1 :57pm November 18, 2024 1 :57pm Supervision of normal November 18, 2024 1:57pm Hypocalcemia December 16, 2024 9:35 am December 16, 2024 9:35 am Supervision of normal December 9:35am Chief Complaint Admit Date 12wk OB September 24, 2024 9:58am 16 WK OB October 21, 2024 3: 47pm 20 WK OB November 18, 2024 1 :57pm 24 WK OB December 16, 2024 9:35 am ABNORMAL GLUCOSE LEVEL January 11, 2025 7 :42am 28 WK OB January 11, 2025 2:27 pm Reason for Visit Admit Date Hypocalcemia September 24, 2024 9:58am September 24, 2024 9:58am Supervision of normal September 24, 2024 9:58am Hypocalcemia October 21, 2024 3: 47pm October 21, 2024 3: 47pm Supervision of normal October 21, 2024 3:47pm Hypocalcemia November 18, 2024 1 :57pm November 18, 2024 1 :57pm Supervision of normal November 18, 2024 1:57pm Hypocalcemia December 16, 2024 9:35 am December 16, 2024 9:35 am Supervision of normal December 9:35am Abnormal glucose January 11, 2025 2:27 pm Gestational diabetes January 11, 2025 2:2 7pm Hypocalcemia January 11, 2025 2:27 pm January 11, 2025 2:27 pm Supervision of normal January 2:27pm Chief Complaint Admit Date 20 WK OB November 18, 2024 1 :57pm 24 WK OB December 16, 2024 9:35 am ABNORMAL GLUCOSE LEVEL January 11, 2025 7 :42am 28 WK OB January 11, 2025 2:27 pm 30 WK OB January 28, 2025 2:5 0pm 32 WK OB February 08, 2025 1:5 2pm 34 WK OB February 25, 2025 2:44p m Reason for Visit Admit Date Hypocalcemia November 18, 2024 1 :57pm November 18, 2024 1 :57pm Supervision of normal November 18, 2024 1:57pm Hypocalcemia December 16, 2024 9:35 am December 16, 2024 9:35 am Supervision of normal December 9:35am Abnormal glucose January 11, 2025 2:27 pm Gestational diabetes January 11, 2025 2:2 7pm Hypocalcemia January 11, 2025 2:27 pm January 11, 2025 2:27 pm Supervision of normal January 2:27pm Abnormal glucose January 28, 2025 2:5 0pm Gestational diabetes January 28, 2025 2: 50pm Hypocalcemia January 28, 2025 2:5 0pm January 28, 2025 2:5 0pm Supervision of normal January 282024 2:50pm Abnormal glucose February 08, 2025 1:5 2pm Gestational diabetes February 08, 2025 1: 52pm Hypocalcemia February 08, 2025 1:5 2pm February 08, 2025 1:5 2pm Supervision of normal February 082024 1:52pm Abnormal glucose February 25, 2025 2:44p m Gestational diabetes February 25, 2025 2:44 pm Hypocalcemia February 25, 2025 2:44p m February 25, 2025 2:44p m Supervision of normal February 2:44pm Chief Complaint Admit Date 20 WK OB November 18, 2024 1 :57pm 24 WK OB December 16, 2024 9:35 am ABNORMAL GLUCOSE LEVEL January 11, 2025 7 :42am 28 WK OB January 11, 2025 2:27 pm 30 WK OB January 28, 2025 2:5 0pm 32 WK OB February 08, 2025 1:5 2pm 34 WK OB February 25, 2025 2:44p m 36 WK OB March 08, 2025 9:55a m Reason for Visit Admit Date Hypocalcemia November 18, 2024 1 :57pm November 18, 2024 1 :57pm Supervision of normal November 18, 2024 1:57pm Hypocalcemia December 16, 2024 9:35 am December 16, 2024 9:35 am Supervision of normal December 9:35am Gestational diabetes January 11, 2025 2:2 7pm Hypocalcemia January 11, 2025 2:27 pm January 11, 2025 2:27 pm Supervision of normal January 2:27pm Abnormal glucose January 11, 2025 2:27 pm Gestational diabetes January 28, 2025 2: 50pm Hypocalcemia January 28, 2025 2:5 0pm January 28, 2025 2:5 0pm Supervision of normal January [id number] 2:50pm Abnormal glucose January 28, 2025 2:5 0pm Gestational diabetes February 08, 2025 1: 52pm Hypocalcemia February 08, 2025 1:5 2pm February 08, 2025 1:5 2pm Supervision of normal February [id number] 1:52pm Abnormal glucose February 08, 2025 1:5 2pm Gestational diabetes February 25, 2025 2:44 pm Hypocalcemia February 25, 2025 2:44p m February 25, 2025 2:44p m Supervision of normal February 2:44pm Abnormal glucose February 25, 2025 2:44p m Gestational diabetes March 08, 2025 9:55 am Hypocalcemia March 08, 2025 9:55a m March 08, 2025 9:55a m Supervision of normal February 9:55am Chief Complaint Admit Date 20 WK OB November 18, 2024 1 :57pm 24 WK OB December 16, 2024 9:35 am ABNORMAL GLUCOSE LEVEL January 11, 2025 7 :42am 28 WK OB January 11, 2025 2:27 pm 30 WK OB January 28, 2025 2:5 0pm 32 WK OB February 08, 2025 1:5 2pm 34 WK OB February 25, 2025 2:44p m 36 WK OB March 08, 2025 9:55a m 36 WEEK GROWTH March 09, 2025 1:22p m Chief Complaint Admit Date 20 WK OB November 18, 2024 1 :57pm 24 WK OB December 16, 2024 9:35 am ABNORMAL GLUCOSE LEVEL January 11, 2025 7 :42am 28 WK OB January 11, 2025 2:27 pm 30 WK OB January 28, 2025 2:5 0pm 32 WK OB February 08, 2025 1:5 2pm 34 WK OB February 25, 2025 2:44p m 36 WK OB March 08, 2025 9:55a m 36 WEEK GROWTH March 09, 2025 1:22p m 37 WK OB March 17, 2025 9:14a m Reason for Visit Admit Date Hypocalcemia November 18, 2024 1 :57pm November 18, 2024 1 :57pm Supervision of normal November 18, 2024 1:57pm Hypocalcemia December 16, 2024 9:35 am December 16, 2024 9:35 am Supervision of normal December 9:35am Gestational diabetes January 11, 2025 2:2 7pm Hypocalcemia January 11, 2025 2:27 pm January 11, 2025 2:27 pm Supervision of normal January 2:27pm Abnormal glucose January 11, 2025 2:27 pm Gestational diabetes January 28, 2025 2: 50pm Hypocalcemia January 28, 2025 2:5 0pm January 28, 2025 2:5 0pm Supervision of normal January [id number] 2:50pm Abnormal glucose January 28, 2025 2:5 0pm Gestational diabetes February 08, 2025 1: 52pm Hypocalcemia February 08, 2025 1:5 2pm February 08, 2025 1:5 2pm Supervision of normal February [id number] 1:52pm Abnormal glucose February 08, 2025 1:5 2pm Gestational diabetes February 25, 2025 2:44 pm Hypocalcemia February 25, 2025 2:44p m February 25, 2025 2:44p m Supervision of normal February 2:44pm Abnormal glucose February 25, 2025 2:44p m Gestational diabetes March 08, 2025 9:55 am Hypocalcemia March 08, 2025 9:55a m March 08, 2025 9:55a m Supervision of normal February 9:55am Gestational diabetes March 17, 2025 9:14 am Hypocalcemia March 17, 2025 9:14a m March 17, 2025 9:14a m Supervision of normal March 9:14am Chief Complaint Admit Date 24 WK OB December 16, 2024 9:35 am ABNORMAL GLUCOSE LEVEL January 11, 2025 7 :42am 28 WK OB January 11, 2025 2:27 pm 30 WK OB January 28, 2025 2:5 0pm 32 WK OB February 08, 2025 1:5 2pm 34 WK OB February 25, 2025 2:44p m 36 WK OB March 08, 2025 9:55a m 36 WEEK GROWTH March 09, 2025 1:22p m 37 WK OB March 17, 2025 9:14a m 38 WK OB March 25, 2025 12:5 9pm Reason for Visit Admit Date Hypocalcemia December 16, 2024 9:35 am December 16, 2024 9:35 am Supervision of normal December 9:35am Gestational diabetes January 11, 2025 2:2 7pm Hypocalcemia January 11, 2025 2:27 pm January 11, 2025 2:27 pm Supervision of normal January 2:27pm Abnormal glucose January 11, 2025 2:27 pm Gestational diabetes January 28, 2025 2: 50pm Hypocalcemia January 28, 2025 2:5 0pm January 28, 2025 2:5 0pm Supervision of normal January [id number] 2:50pm Abnormal glucose January 28, 2025 2:5 0pm Gestational diabetes February 08, 2025 1: 52pm Hypocalcemia February 08, 2025 1:5 2pm February 08, 2025 1:5 2pm Supervision of normal February [id number] 1:52pm Abnormal glucose February 08, 2025 1:5 2pm Gestational diabetes February 25, 2025 2:44 pm Hypocalcemia February 25, 2025 2:44p m February 25, 2025 2:44p m Supervision of normal February 2:44pm Abnormal glucose February 25, 2025 2:44p m Gestational diabetes March 08, 2025 9:55 am Hypocalcemia March 08, 2025 9:55a m March 08, 2025 9:55a m Supervision of normal February 9:55am Gestational diabetes March 17, 2025 9:14 am Hypocalcemia March 17, 2025 9:14a m March 17, 2025 9:14a m Supervision of normal March 9:14am Gestational diabetes March 25, 2025 12: 59pm Hypocalcemia March 25, 2025 12:5 9pm March 25, 2025 12:5 9pm Supervision of normal March 12:59pm Chief Complaint Admit Date 24 WK OB December 16, 2024 9:35 am ABNORMAL GLUCOSE LEVEL January 11, 2025 7 :42am 28 WK OB January 11, 2025 2:27 pm 30 WK OB January 28, 2025 2:5 0pm 32 WK OB February 08, 2025 1:5 2pm 34 WK OB February 25, 2025 2:44p m 36 WK OB March 08, 2025 9:55a m 36 WEEK GROWTH March 09, 2025 1:22p m 37 WK OB March 17, 2025 9:14a m 38 WK OB March 25, 2025 12:5 9pm 39 WK OB March 29, 2025 1:24 pm Reason for Visit Admit Date Hypocalcemia December 16, 2024 9:35 am December 16, 2024 9:35 am Supervision of normal December 9:35am Gestational diabetes January 11, 2025 2:2 7pm Hypocalcemia January 11, 2025 2:27 pm January 11, 2025 2:27 pm Supervision of normal January 2:27pm Abnormal glucose January 11, 2025 2:27 pm Gestational diabetes January 28, 2025 2: 50pm Hypocalcemia January 28, 2025 2:5 0pm January 28, 2025 2:5 0pm Supervision of normal January [id number] 2:50pm Abnormal glucose January 28, 2025 2:5 0pm Gestational diabetes February 08, 2025 1: 52pm Hypocalcemia February 08, 2025 1:5 2pm February 08, 2025 1:5 2pm Supervision of normal February 082024 1:52pm Abnormal glucose February 08, 2025 1:5 2pm Gestational diabetes February 25, 2025 2:44 pm Hypocalcemia February 25, 2025 2:44p m February 25, 2025 2:44p m Supervision of normal February 2:44pm Abnormal glucose February 25, 2025 2:44p m Gestational diabetes March 08, 2025 9:55 am Hypocalcemia March 08, 2025 9:55a m March 08, 2025 9:55a m Supervision of normal February 9:55am Gestational diabetes March 17, 2025 9:14 am Hypocalcemia March 17, 2025 9:14a m March 17, 2025 9:14a m Supervision of normal March 9:14am Gestational diabetes March 25, 2025 12: 59pm Hypocalcemia March 25, 2025 12:5 9pm March 25, 2025 12:5 9pm Supervision of normal March 12:59pm Gestational diabetes March 29, 2025 1:2 4pm Hypocalcemia March 29, 2025 1:24 pm March 29, 2025 1:24 pm Supervision of normal March 1:24pm Additional Source Comments INFORMATION SOURCE (unrecogn ized section and content) DATE CREATED AUTHOR 04/08/2018 [facility] ([place]) DATE CREATED AUTHOR AUTHOR'S ORGANIZ ATION 11/11/2024 [facility] DATE CREATED AUTHOR AUTHOR'S ORGANIZ ATION 03/27/2025 [facility] Care Teams (unrecognized sec tion and content) Team Status: Active Member Role Status Dates Dr. Luigi Santos MD Primary Care Provider Active Team Status: Inactive Member Role Status Dates Dr. Luigi Santos MD Primary Care Provider, Refer ring Provider Active Duncan LOU, [place] Attending Provider Active Team Status: Inactive Member Role Status Dates Dr. Luigi Santos MD Primary Care P brennan, Attending Provider, Referring Provider Active Team Status: Active Member Role Status Dates Dr. Luigi Santos MD Primary Care Provider Active Yaquelin Mason MA Attending Provider Active Team Status: Inactive Member Role Status Dates Dr. Luigi Santos MD Primary Care Provider Active Start: September 24, 2024 End: September 24, 2024 Dr. Luigi Santos MD Referring Provider Active Start: September 24, 2024 End: September 24, 2024 Dr. Jana Santiago DO Attending Provider Activ e Start: September 24, 2024 End: September 24, 2024 Team Status: Inactive Member Role Status Dates Dr. Luigi Santos MD Primary Care Provider Active Start: October 21, 2024 End: October 21, 2024 Dr. Luigi Santos MD Referring Provider Active Start: October 21, 2024 End: October 21, 2024 Talia Loredo CNM Attending Provider Active S tart: October 21, 2024 End: October 21, 2024 Team Status: Inactive Member Role Status Dates Dr. Liugi Santos MD Primary Care Provider Active Start: November 18, 2024 End: November 18, 2024 Dr. Luigi Santos MD Referring Provider Active Start: November 18, 2024 End: November 18, 2024 Dr. Jana Santiago DO Attending Provider Activ e Start: November 18, 2024 End: November 18, 2024 Team Status: Inactive Member Role Status Dates Dr. Luigi Santos MD Primary Care Provider Active Start: December 16, 2024 End: December 16, 2024 Dr. Luigi Santos MD Referring Provider Active Start: December 16, 2024 End: December 16, 2024 Dr. Marie Dockery MD Attending Provider Active Start: December 16, 2024 End: December 16, 2024 Team Status: Inactive Member Role Status Dates Dr. Luigi Santos MD Primary Care Provider Active Start: January 04, 2025 End: January 04, 2025 Martha Novoa MANAGER DIALYSIS, MANAGER DIALYSIS-C Attending Provider Active Start: January 04, 2025 End: January 04, 2025 Martha Novoa MANAGER DIALYSIS, MANAGER DIALYSIS-C Referring Provider Active Start: January 04, 2025 End: January 04, 2025 Team Status: Inactive Member Role Status Dates Dr. Luigi Santos MD Primary Care Provider Active Start: January 11, 2025 End: January 11, 2025 Martha Novoa MANAGER DIALYSIS, MANAGER DIALYSIS-C Attending Provider Active Start: January 11, 2025 End: January 11, 2025 Martha Novoa MANAGER DIALYSIS, MANAGER DIALYSIS-C Referring Provider Active Start: January 11, 2025 End: January 11, 2025 Team Status: Inactive Member Role Status Dates Dr. Luigi Santos MD Primary Care Provider Active Start: January 11, 2025 End: January 11, 2025 Dr. Luigi Santos MD Referring Provider Active Start: January 11, 2025 End: January 11, 2025 Dr. Jana Santiago DO Attending Provider Activ e Start: January 11, 2025 End: January 11, 2025 Team Status: Inactive Member Role Status Dates Dr. Luigi Santos MD Primary Care Provider Active Start: January 28, 2025 End: January 28, 2025 Dr. Luigi Santos MD Referring Provider Active Start: January 28, 2025 End: January 28, 2025 Dr. Marie Dockery MD Attending Provider Active Start: January 28, 2025 End: January 28, 2025 Team Status: Inactive Member Role Status Dates Dr. Luigi Santos MD Primary Care Provider Active Start: February 08, 2025 End: February 08, 2025 Dr. Luigi Santos MD Referring Provider Active Start: February 08, 2025 End: February 08, 2025 Talia Loredo CNM Attending Provider Active S tart: February 08, 2025 End: February 08, 2025 Team Status: Inactive Member Role Status Dates Dr. Luigi Santos MD Primary Care Provider Active Start: February 25, 2025 End: February 25, 2025 Dr. Luigi Santos MD Referring Provider Active Start: February 25, 2025 End: February 25, 2025 Dr. Jana Santiago , Attending Provider Activ e Start: February 25, 2025 End: February 25, 2025 Team Status: Inactive Member Role Status Dates Dr. Luigi Santos MD Primary Care Provider Active Start: March 08, 2025 End: March 08, 2025 Dr. Luigi Santos MD Referring Provider Active Start: March 08, 2025 End: March 08, 2025 Martha Novoa MANAGER DIALYSIS, MANAGER DIALYSIS-C Attending Provider Active Start: March 08, 2025 End: March 08, 2025 Team Status: Inactive Member Role Status Dates Dr. Luigi Santos MD Primary Care Provider Active Start: March 08, 2025 End: March 08, 2025 Martha Novoa MANAGER DIALYSIS, MANAGER DIALYSIS-C Attending Provider Active Start: March 08, 2025 End: March 08, 2025 Martha Novoa MANAGER DIALYSIS, MANAGER DIALYSIS-C Referring Provider Active Start: March 08, 2025 End: March 08, 2025 Team Status: Active Member Role Status Dates Dr. Luigi Santos MD Primary Care Provider Active Start: March 09, 2025 Dr. Jana Santiago DO Attending Provider Activ e Start: March 09, 2025 Dr. Jana Santiago , DO Referring Provider Activ e Start: March 09, 2025 Team Status: Inactive Member Role Status Dates Dr. Luigi Santos MD Primary Care Provider Active Start: March 09, 2025 End: March 09, 2025 Dr. Jana Santiago DO Attending Provider Activ e Start: March 09, 2025 End: March 09, 2025 Dr. Jana Santiago DO Referring Provider Activ e Start: March 09, 2025 End: March 09, 2025 Team Status: Inactive Member Role Status Dates Dr. Luigi Santos MD Primary Care Provider Active Start: March 17, 2025 End: March 17, 2025 Dr. Luigi Santos MD Referring Provider Active Start: March 17, 2025 End: March 17, 2025 Dr. Marie Dockery MD Attending Provider Active Start: March 17, 2025 End: March 17, 2025 Team Status: Inactive Member Role Status Dates Dr. Luigi Santos MD Primary Care Provider Active Start: March 25, 2025 End: March 25, 2025 Dr. Luigi Santos MD Referring Provider Active Start: March 25, 2025 End: March 25, 2025 Dr. Jana Santiago DO Attending Provider Activ e Start: March 25, 2025 End: March 25, 2025 Team Status: Inactive Member Role Status Dates Dr. Luigi Santos MD Primary Care Provider Active Start: March 29, 2025 End: March 29, 2025 Dr. Luigi Santos MD Referring Provider Active Start: March 29, 2025 End: March 29, 2025 Dr. Jana Santiago DO Attending Provider Activ e Start: March 29, 2025 End: March 29, 2025 Goals (unrecognized section and content) Goals may be documented in a n alternate sectionGoals may be documented in an alternate sectionGoals may be documented in an alternate sectionGoals may be documented in an alternate sectionGoals may be documented in an alternate sectionGoals may be documented in an alternate sectionGoals may be documented in an alternate sectionGoals may be documented in an alternate sectionGoals may be documented in an alternate sectionGoals may be documented in an alternate section FOR RECORDS PERTAINING TO PATIENTS WHO ARE OR HAVE BEEN ENROLLED IN A CHEMICAL DEPENDENCY/SUBSTANCEABUSE PROGRAM, SOME INFORMATION MAY BE OMITTED. This clinical summary was aggregated from multiple sources. Caution should be exercised in using it in the provision of clinical care. This summary normalizes information from multiple sources, and as a consequence, information in this document may materially change the coding, format and clinical context of patient data. In addition, data may be omitted in some cases. CLINICAL DECISIONS SHOULD BE BASED ON THE PRIMARY CLINICAL RECORDS. [facility]. provides no warranty or guarantee of the accuracy or completeness of information in this document.
[2025-03-31 19:28] VITALS: RESP 16; TEMP 36.3
[2025-03-31 19:30] VITALS: BP 144/70; PULSE 74; PULSE 90; TEMP 36.6; O2SAT 97
[2025-03-31 20:09] LABS: Absolute Lymphocyte Count 1.98 X10^3/uL (0.83-4.51); Absolute Neutrophil Count 6.8 X10^3/uL (2.0-7.7); Basophil# 0.03 X10^3/uL; Basophil% 0.3 % (0-1); Eosinophil# 0.06 X10^3/uL; Eosinophils% 0.6 % (0-5); Hemoglobin 13.4 g/dL (12.0-15.0); Lymphocyte # 1.98 X10^3/ul (0.83-4.51); Lymphocyte % 20.6 % (19-41); Mean Corp Hgb Conc 33.5 g/dL (32-36); Mean Corpuscular Hgb 29.5 pg (27.0-32.0); Mean Corpuscular Volume 87.9 fL (81-99); Mean Platelet Vol. 11.7 fl (6.2-12.0); Monocyte# 0.74 X10^3/uL; Monocyte% 7.7 % (0-10); NRBC Flagged by Analyzer 0 % (0-5); Neutrophil # 6.77 X10^3/uL (2.7-7.7); Neutrophil % 70.3 % (47-70); Platelet Count 181 K/mm3 (150-450); RBC Distribution Width SD 41.3 fl (35.1-43.9); Red Blood Count 4.55 M/mm3 (4.2-5.4); White Blood Count 9.6 K/mm3 (4.4-11.0)
[2025-03-31] MEDS: miSOPROStol 25 MCG TABLET VAGINAL (20:27)
--- NOTE | 2025-03-31 20:32 | HP.PCM.OB_ITS ---
HPI - General General Date of Admission: 03/31/25 HPI Narrative PATRICIA PERSON, is a 34 y/o @ 39 weeks 2 days who presents to L&D for induction of labor for gestational diabetes. Her has a long weekend off starting tomorrow and they requested IOL on this day. Her woodson score in the office was a 6 but she prefers to start her induction with cytotec. She requests epidural when the pain starts Maternal Data Information ALDAIR Calculator Estimated Delivery Date Method Current WG Current Estimate 04/05/25 LMP (Certain) 39w 2d PFSH PFS Medical History Hypocalcemia Home Medications ?Medication ?Instructions ?Recorded ?Last Taken ?Type calcium carbonate 600 mg PO DAILY supplement 1 10/26/22 03/31/25 17:00 History vits no.126-ferrous fum 1 tab PO DAILY supple ment 08/10/24 03/31/25 17:00 History 28 mg iron-folic acid 800 mcg tablet (Classic ) blood sugar diagnostic (Blood #120 ea 01/12/25 Unknown Rx Glucose Test strips) blood-glucose meter #1 ea 01/12/25 Unknown Rx lancets #200 ea 01/12/25 Unknown Rx Allergy/AdvReac Type Severity Reaction Status Date / Time No Known Allergies Allergy Verified 03/31/25 19:49 Family History Other Celiac disease Diabetes Heart disease Surgical History H/O wisdom tooth extraction Social History adopted: No household members: spouse 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 occupational 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: No pets and animals: Yes history of recent travel: Yes ([place], [place], [place], [place] (May 2024)) details: [place] (Summer 2023), [place] (Jun 2024) out of state: Yes out of country: Yes sexually active: Yes Smoking Status: Never smoker alcohol intake: never substance use type: does not use well-balanced diet: daily or most days caffeine: No eating out: rarely or never during the past year weight has: remained stable what type of physical activity do you participate in: none bj/episcopalian: Sikh seatbelt use: always do you feel safe at home: Yes 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 History 1 Elective abortions Hx Para 0 Spontaneous abortions Hx # Term Pregnancies Ectopic pregnancies Hx # Pregnancies Multiple births # of living children Visit Details Expected Delivery Route/Plan Labor Preferences- CB/BF classes: [] labor support person: miki labor intervention preferences: [] pain management options preferred: epidural cut cord/dad catch: probably not : yes PP control planned: [] discussed possible routes of delivery and associated risks: [] special requests: [] Plans Covid status: [] Flu vaccine: [] Tdap vaccine: given Rhogam: na LARC form signed: declines movement and labor precautions reviewed. Problem list reviewed and updated with the most current plan of care details and appropriate orders placed. Relevant counseling for the gestational age provided. Continue routine care and follow up unless otherwise noted in visit notes/problem list details OB Flowsheet Initial Weight: Not Recorded Date -?-?-?-?-?-?-?-?-?-?-?-?- EGA Weight BP Urine Prot -?-?-?-?-?-?-?-?-?-?-?-?- Glucose FHR FuHt Pres Dilation -?-?-?-?-?-?-?-?-?-?-?-?- Effaced St Visit Note 08/27/24 -?-?-?-?-?-?-?-?-?-?-?-?- 8w 3d 137 lb (+0 oz) 133/77 -?-?-?-?-?-?-?-?-?-?-?-?- 171 -?-?-?-?-?-?-?-?-?-?-?-?- LC- CRL 1.8 con with LMP. declines nipt. BMP ordered for hypocalemia. 09/24/24 -?-?-?-?-?-?-?-?-?-?-?-?- 12w 3d 138 lb (+0 oz) 131/73 Negative -?-?-?-?-?-?-?-?-?-?-?-?- Negative 157 -?-?-?-?-?-?-?-?-?-?-?-?- JV- no complaint s today. declines NIPT. 10/21/24 -?-?-?-?-?-?-?-?-?-?-?-?- 16w 2d 140 lb (+0 oz) 121/63 Negative -?-?-?-?-?-?-?-?-?-?-?-?- Negative 145 -?-?-?-?-?-?--?-?-?-?-?-?- KW- no vb/crampi ng. US scheduled. no concerns 11/18/24 -?-?-?-?-?-?-?-?-?-?-?-?- 20w 2d 144 lb 4 oz (+0 oz) 123/71 Negative -?-?-?-?-?-?-?-?-?-?-?-?- Negative 140 -?-?-?-?-?-?-?-?-?-?-?-?- JV_ anatomy scan looks normal. no complaints today. 12/16/24 -?-?--?-?-?-?-?-?-?-?-?-?- 24w 2d 148 lb (+0 oz) 118/74 Negative -?-?-?-?-?-?-?-?-?-?-?-?- Negative 140 24 -?-?-?-?-?-?-?-?-?-?-?-?- SM- no vb lof go od fm nor egular ctx 01/11/25 -?-?-?-?-?-?-?-?-?-?-?-?- 28w 0d 151 lb 8 oz (+0 oz) 122/71 Negative -?-?-?-?-?-?-?-?--?-?-?-?- Negative 145 -?-?-?-?-?-?-?-?-?-?-?-?- JV- patient fail ed her 3 hr today. diagnosis of gestational diabetes and glucose parameters discussed. pt needs to purchase an otc device as does not have insurance. will send update on levels next week. 01/28/25 -?-?-?-?-?-?-?-?-?-?-?-?- 30w 3d 152 lb 2 oz (+0 oz) 110/69 Negative -?-?-?-?-?-?-?-?-?-?-?-?- Negative 145 30 -?-?-?-?-?-?-?-?-?-?-?-?- SM- n ovb lof go od fm sno regular ctx 02/08/25 -?-?-?-?-?-?-?-?-?-?-?-?- 32w 0d 149 lb 9 oz (+0 oz) 126/72 Negative -?-?-?-?-?-?-?-?-?-?-?-?- Negative 140 31 -?-?-?-?-?-?-?--?-?-?-?-?- KW- no vb/lof/ct x. good fm. BS reviewed and normal. Discussed cord blood banking 02/25/25 -?-?-?-?-?-?-?-?-?-?-?-?- 34w 3d 152 lb 2 oz (+0 oz) 115/71 Negative -?-?-?-?-?-?-?-?-?-?-?-?- Negative 137 33 -?-?-?-?-?-?-?-?-?-?-?-?- JV- has growth s can at 36 weeks. normal glucose log. no complaints. 03/08/25 -?-?-?-?-?-?-?-?-?-?-?-?- 36w 0d 151 lb 6 oz (+0 oz) 112/68 Negative -?-?-?-?-?-?-?-?-?-?-?-?- Negative 138 35 -?-?-?-?-?-?-?-?-?-?-?-?- MH-No VB, LOF. G ood Fm. GBS done. Growth US tomorrow. Glucose log reviewed and >80% wnl 03/17/25 -?-?-?-?-?-?-?-?-?-?-?-?- 37w 2d 154 lb (+0 oz) 131/74 Negative -?-?-?-?-?-?-?-?-?-?-?-?- Negative 140 36 -?-?-?-?-?-?-?-?-?-?-?-?- Sm- no vb lof go od fm n oregaulr ctx 03/25/25 -?-?-?-?-?-?-?-?-?-?-?-?- 38w 3d 153 lb 2 oz (+0 oz) 125/75 Negative -?-?-?-?-?-?-?-?-?-?-?-?- Negative 160 37 Cephalic 1 -?-?-?-?-?-?-?-?-?-?-?-?- 60 -2 JV- no lof , vaginal bleeding, or dec fm. plan IOL on 03/31/25at 7 pm for cytotec. is a 6 but she prefers to start with cytotec. 03/29/25 -?-?-?-?-?-?-?-?-?-?-?-?- 39w 0d 153 lb 4 oz (+0 oz) 127/74 Negative -?-?-?-?-?-?-?-?-?-?-?-?- Negative 160 38 Cephalic -?-?-?-?-?-?-?-?-?-?-?-?- JV- low st ation, unable to reach cervix today. IOL set up for cytotec on 03/31 evening. ROS Constitutional Constitutional: Denies change in weight, fatigue, fever(s), headache(s), poor appetite or weakness Eyes Eyes: Denies blurry vision, change in vision, seeing flashes or spots in vision ENT HEENT: Denies dizziness, headache(s), loss taste/smell or sore throat Cardiovascular Cardiovascular: Denies chest pain, dizziness, dyspnea, irregular heart rhythm, leg edema, palpitations, rapid heart rate or vomiting Respiratory/Chest Respiratory/Chest: Denies chest tightness, cough, dyspnea or breast pain Gastrointestinal Gastrointestinal: Denies abdominal pain, anorexia, constipation, cramping, diarrhea, hemorrhoids, vomiting or weight changes Genitourinary Genitourinary: Denies dysuria, flank pain, genital lesions, genital pain, urinary frequency or urinary urgency Musculoskeletal Musculoskeletal: Denies back pain, difficulty walking, joint pain, limited range of motion, muscle cramps or numbness Integumentary Integumentary: Denies lesions or unusual bruising Neurologic Neurologic: Denies abnormal movements, abnormal speech, dizziness, numbness, seizure-like activity or syncope Psychiatric Psychiatric: Denies anxiety, behavioral changes, change in appetite, change in libido, cognitive impairment, confusion, depression, difficulty concentrating, hallucinations or suicidal thoughts Endocrine Endocrinology: Denies excessive sweating, polydipsia or polyuria Hematologic/Lymphatic Hematologic/Lymphatic: Denies easy bleeding, easy bruising or lymphadenopathy Allergic/Immunologic Allergic/Immunologic: Denies itchy eyes, lip swelling, seasonal rhinorrhea, rhinitis, throat swelling, tongue swelling, eczemia, wheezing or asthma Vital Signs Vital Signs Vital Signs: 03/31/25 19:28 03/31/25 19:28 03/31/25 19:30 Temperature 97.4 F L Pulse Rate Respiratory Rate 16 Blood Pressure 144/70 H BP Systolic 144 BP Diastolic 70 Pulse Ox 03/31/25 19:30 03/31/25 19:30 03/31/25 19:30 Temperature 97.9 F Pulse Rate 74 90 Respiratory Rate Blood Pressure BP Systolic BP Diastolic Pulse Ox 03/31/25 19:30 Temperature Pulse Rate Respiratory Rate Blood Pressure BP Systolic BP Diastolic Pulse Ox 97 Weight Weight: 155 lb 6.814 oz Body Mass Index (BMI) 24.3 Physical Exam Const alert, oriented x3, no apparent distress and healthy appearing General Appearance: cooperative; Negative for anxious HEENT normocephalic Face and Sinus: normal facial exam Eyes EOMs intact bilaterally and no scleral icterus General Eye: normal appearance of both eyes Neck full ROM and supple Lymph Lymphatic: no lymphadenopathy noted Resp normal respiratory effort Effort and Inspection: able to speak in complete sentences Cardio regular rate GI soft to palpation and non-tender Inspection: gravid Palpation: soft; Negative for tender external exam normal Narrative: cx is 1/50/-2, soft and mid position. The cytotec 25 mcg was placed in the posterior vagina without difficulty. Back/Spine no CVA tenderness Extremity normal to inspection, full ROM and no clubbing, cyanosis or edema General Extremity: Negative for calf tenderness or edema Skin Lesions: no lesions Rashes: no rashes Psych mental status grossly normal Labs Labs Labs: Blood Type A POSITIVE Antibody Screen NEGATIVE Hct 40.0 % (37-47) Hgb 13.4 g/dL (12.0-15.0) Obstetrics Ultrasound Syphilis Total Ab Nonreactive (Nonreactive) Rubella IgG Antibody Reactive (Nonreactive) Hep Bs Antigen Non-Reactive (Nonreactive) Hepatitis C Antibody Non-Reactive (Nonreactive) Chlamydia DNA (PEG) Negative (Negative) N.gonorrhoeae DNA (PEG) Negative (Negative) HIV 1&2 Antibody Nonreactive (Nonreactive) Glucose 1 Hr 50 gm 153 mg/dL (70-140) H Gest Glucose Tolerance MG/DL Assessment & Plan (1) Gestational diabetes: QUALIFIERS: Gestational diabetes mellitus control: diet-controlled Trimester: third trimester Qualified Code(s): O24.410 - Gestational diabetes mellitus in , diet controlled COMMENT: diet ocntrolled, growth US at 36 discussed IOL by 39-40 (2) Supervision of normal : QUALIFIERS: Normal : normal first Trimester: third trimester Qualified Code(s): Z34.03 - Encounter for supervision of normal first , third trimester COMMENT: PRR . , ALDAIR 04/05/25, surprise : Miki (3) : QUALIFIERS: Weeks of gestation: 39 weeks Qualified Code(s): Z3A.39 - 39 weeks gestation of COMMENT: Neg GBS. Discussed genetic/carrier testing - declines. decline afp. normal anatomy (4) Hypocalcemia: COMMENT: BMP checked with NOB labs PLAN: Plan Patient presents IOL, plan management for with cytotec tonight then pitocin /AROM tomorrow. She wishes to have a light breakfast before pitocin is started in the am. Pain management: plans epidural. GBS negative. Management of any complications: gestational diabetes- routine glucose monitoring ordered per diabetic protocol. I have reviewed the [facility] and made any clinically relevant updates.
[2025-03-31 20:34] LABS: Syphilis Antibodies Nonreactive (Nonreactive)
[2025-03-31 21:02] LABS: Bedside Glucose 117 mg/dL (74-106)
[2025-03-31 22:09] LABS: Bedside Glucose 122 mg/dL (74-106)
[2025-03-31 22:53] LABS: Bedside Glucose 108 mg/dL (74-106)
[2025-04-01] VITALS (86 sets, daily range): BP systolic 89–124; BP diastolic 49–74; PULSE 52–120; RESP 14–16; TEMP 36.1–37.3; O2SAT 94–100
[2025-04-01] MEDS: Lactated Ringers 1,000 ML 999 ML IV ×2 (00:45→10:10)
[2025-04-01 00:58] LABS: Bedside Glucose 95 mg/dL (74-106)
[2025-04-01] MEDS: miSOPROStol 25 MCG TABLET VAGINAL (03:34)
[2025-04-01 04:05] LABS: Bedside Glucose 77 mg/dL (74-106)
--- OUTSIDE RECORDS SUMMARY | 2025-04-01 07:27 | XMS RPT_ITS | CCD ---
Author Organization [facility] Care Team Providers Care Facility Environmental Technician Name Role Phone LIANNA TOUSSAINT Unavailable Unavailable RAFFAELE PINEDA JR. Unavailable Unavailable Dr. Luigi Santos Primary Care Provider [phone] Dr. Luigi Santos Referring Provider [phone] CARMINE Bright Attending Provider Dr. Luigi Santos Attending Provider [phone] VANESSA Mason Attending Provider Unavailable JANA NICOLE Referring Unavailab JANA Luciano Attending Unavailab LUIGI Ramirez Primary Care Unavailable Dr. Luigi Santos MD Primary Care Provider Dr. Luigi Santos MD Referring Provider [phone] Dr. Jana Santiago DO Attending Provider Talia Loredo CNM Attending Provider [phone] Dr. Marie Dockery MD Attending Provider [phone] Martha Roca Attending Provider [phone] Martha Roca Referring Provider [phone] Dr. Luigi Santos MD Primary Care Provider Dr. Luigi Santos MD Referring Provider [phone] Dr. Jana Santiago DO Attending Provider Talia Loredo CNM Attending Provider [phone] Dr. Jana Santiago DO Referring Provider Danielle YUN, Dr. Meyers Primary Care Provider Danielle YUN, Dr. Meyers Referring Provider [phone] Grace Roman DO, Dr. Bates Attending Provider Oleghe, Efewongbe Referring Unavailable Oleghe, Efewongbe Primary Care Unavailable Marie Dockery Attending Unavailable Oleghe, Efewongbe Referring Unavailable Oleghe, Efewongbe Primary Care Unavailable Velde, Jana Edwards Attending Unavailabl e Velde, Jana Edwards Attending Unavailabl e Oleghe, Efewongbe Primary Care Unavailable Oleghe, Efewongbe Referring Unavailable Oleghe, Efewongbe Primary Care Unavailable Oleghe, Efewongbe Referring Unavailable Velliz, Jana Edwards Attending Unavailabl e Sherri Carvalho Attending Unavailable Oleghe, Efewongbe Primary Care Unavailable Oleghe, Efewongbe Referring Unavailable Velde, Jana Edwards Attending Unavailabl e Oleghe, Efewongbe Primary Care Unavailable Oleghe, Efewongbe Referring Unavailable Oleghe, Efewongbe Primary Care Unavailable Oleghe, Efewongbe Referring Unavailable Talia Loredo Attending Unavailable Rylee Bledsoe Attending Unavailable Oleghe, Efewongbe Primary Care Unavailable Bright, Martha Referring Unavailable Bright Martha Attending Unavailable Oleghe, Efewongbe Primary Care Unavailable [place], Martha Referring Unavailable [place], Martha Attending Unavailable Oleghe, Efewongbe Primary Care Unavailable Oleghe, Efewongbe Primary Care Unavailable Bright, Martha Referring Unavailable [place], Martha Attending Unavailable Sherri Carvalho Referring Unavailable Sherri Carvalho Attending Unavailable Oleghe, Efewongbe Primary Care Unavailable VeldeJana Referring Unavailabl e Oleghe, Efewongbe Primary Care Unavailable Velliz, Jana Edwards Attending Unavailabl e Velde, Jana Edwards Admitting Unavailabl e Velde, Jana Edwards Referring Unavailabl e Oleghe, Efewongbe Primary Care Unavailable Velde, Jana Edwards Attending Unavailabl e Oleghe, Efewongbe Primary Care Unavailable Oleghe, Efewongbe Referring Unavailable Marie Dockery Attending Unavailable Oleghe, Efewongbe Referring Unavailable Oleghe, Efewongbe Primary Care Unavailable Marie Dockery Attending Unavailable Oleghe, Efewongbe Referring Unavailable Oleghe, Efewongbe Primary Care Unavailable Talia Loredo Attending Unavailable Oleghe, Efewongbe Primary Care Unavailable Oleghe, Efewongbe Referring Unavailable Jana Roman Attending Unavailabl e Jana Roman Attending Unavailabl e Oleghe, Efewongbe Primary Care Unavailable Oleghe, Efewongbe Referring Unavailable Oleghe, Efewongbe Primary Care Unavailable Oleghe, Efewongbe Referring Unavailable Martha Novoa Attending Unavailable Jana Roman Consulting Unavailabl e Medications Current Medications Medication Drug [...] PO DAILY August 26, 2023 1:00am Vit No.926-Ikuz-Osqwn (Classic ) 28 mg iron- 800 mcg tablet (9 sources) Start: 08-10-2024 Vit No.412-Xoqt-Ebinr (Classic ) 28 mg iron- 800 mcg [...] 10, 2024 10:52am 21 day ethinyl estradiol 0.070950 mg/hr / etonogestrel 0.005 mg/hr vaginal system [...] labs Other nutritional; endocrine; and metabolic disorders (2 sources) Hypocalcemia; Translations: [Hypocalcemia] Onset: 03-17-2025 Chronic Other [...] normal anatomy Residual codes; unclassified (1 source) 39 weeks gestation of ; Translations: [39 weeks gestation of ] Onset: 03-31-2025 Episodic Residual codes; unclassified (1 source) 37 weeks [...] Test Name Value Interpretation Reference Range Facility Bedside Glucoseon 04-01-2025 FINGERSTICK GLU 77 mg/dL Normal 74-106 [facility] Comment on above: Result Comment: FLORECITA DAVIS OF PATIENT CARE PER NURSING PROTOCOL Performed By: #### L 501.080 #### [facility] [place], [address] FINGERSTICK GLU 95 mg/dL Normal 74-106 [facility] Comment on above: Result Comment: FLORECITA GEMENT OF PATIENT CARE PER NURSING PROTOCOL Performed By: #### L 501.080 #### [facility] Laboratory [address] [place], [address] Bedside Glucoseon 03-31-2025 FINGERSTICK GLU 108 mg/dL High 74-106 [facility] Comment on above: Result Comment: FLORECITA GEMENT OF PATIENT CARE PER NURSING PROTOCOL Performed By: #### L 501.080 #### [facility] Laboratory [address] [place], [address] FINGERSTICK GLU 122 mg/dL High 74-106 [facility] Comment on above: Result Comment: FLORECITA GEMENT OF PATIENT CARE PER NURSING PROTOCOL Performed By: #### L 501.0250, L509.8002, L3890.6006, L100.0100 #### [facility] [address] [place], [address] FINGERSTICK GLU 117 mg/dL High 74-106 [facility] Comment on above: Result Comment: FLORECITA GEMENT OF PATIENT CARE PER NURSING PROTOCOL Performed By: #### L 501.0250, L509.8002, L3890.6006, L100.0100 #### [facility] [address] [place], [address] CBC W/Diff, Automatedon - Absolute Lymph 1.98 X10 3/uL Normal 0.83-4.51 [facility] Comment on above: Performed By: #### L 100.0100, BTS #### [facility] Laboratory [address] [place], [address] Absolute Neut 6.8 X10 3/uL Normal 2.0-7.7 [facility] Comment on above: Performed By: #### L 100.0100, BTS #### [facility] Laboratory [address] [place], [address] Basophils/100 WBC (Bld) 0.3 % Normal 0-1 W [facility] Comment on above: Performed By: #### L 100.0100, BTS #### [facility] Laboratory [address] [place], [address] Eosinophils/100 WBC (Bld) 0.6 % Normal 0-5 [facility] Comment on above: Performed By: #### L 100.0100, BTS #### [facility] Laboratory [address] [place], [address] Erythrocyte distribution width (RBC) [Ratio] 13.0 % Normal 11.6-14.6 [facility] Comment on above: Performed By: #### L 100.0100, BTS #### [facility] [address] [place], [address] Hematocrit (Bld) [Volume fraction] 40.0 % Normal 37-47 [facility] Comment on above: Performed By: #### L 100.0100, BTS #### [facility] [address] [place], [address] Hemoglobin (Bld) [Mass/Vol] 13.4 g/dL Normal 12.0-15.0 [facility] Comment on above: Performed By: #### L 100.0100, BTS #### [facility] [address] [place], [address] IG% 0.500 Normal 0.0-0.9 [facility] Comment on above: Result Comment: IG% - Immature Granulocytes (promyelocytes, myelocytes and metamyelocytes) > 1% indicates that a LEFT SHIFT is Present. Performed By: #### L 100.0100, BTS #### [facility] [address] [place], [address] Lymphocytes/100 WBC (Bld) 20.6 % Normal 19-41 [facility] Comment on above: Performed By: #### L 100.0100, BTS #### [facility] Laboratory [address] [place], [address] MCH (RBC) [Entitic mass] 29.5 pg Normal 27.0-32.0 [facility] Comment on above: Performed By: #### L 100.0100, BTS #### [facility] [address] [place], [address] MCHC (RBC) [Mass/Vol] 33.5 g/dL Normal 32-36 [facility] Comment on above: Performed By: #### L 100.0100, BTS #### [facility] [address] [place], [address] MCV (RBC) [Entitic vol] 87.9 fL Normal 81-99 [facility] Comment on above: Performed By: #### L 100.0100, BTS #### [facility] [address] [place], [address] Monocytes/100 WBC (Bld) 7.7 % Normal 0-10 [facility] Comment on above: Performed By: #### L 100.0100, BTS #### [facility] [address] [place], [address] Neutrophils/100 WBC (Bld) 70.3 % High 47-70 [facility] Comment on above: Performed By: #### L 100.0100, BTS #### [facility] [address] [place], [address] Nucleated RBC (Bld) [#/Vol] 0 10*3/uL Normal 0-5 [facility] Comment on above: Performed By: #### L 100.0100, BTS #### [facility] [address] [place], [address] Platelet mean volume (Bld) [Entitic vol] 11.7 fL Normal 6.2-12.0 [facility] Comment on above: Performed By: #### L 100.0100, BTS #### [facility] [address] [place], [address] Platelets (Bld) [#/Vol] 181 10*3/uL Normal 150-450 [facility] Comment on above: Performed By: #### L 100.0100, BTS #### [facility] [address] [place], [address] RBC (Bld) [#/Vol] 4.55 10*6/uL Normal 4.2-5.4 [facility] Comment on above: Performed By: #### L 100.0100, BTS #### [facility] [address] [place], [address] RDW SD 41.3 fl Normal 35.1-43.9 [facility] Comment on above: Performed By: #### L 100.0100, BTS #### [facility] Laboratory [address] [place], [address] WBC (Bld) [#/Vol] 9.6 10*3/uL Normal 4.4-11.0 [facility] Comment on above: Performed By: #### L 100.0100, BTS #### [facility] [address] [place], [address] H AND P Exam - OB/GYNon - H&P Exam - VEGETABLE INSPECTOR [facility] Medical Records Department [address] [place] [address] H P Exam - VEGETABLE INSPECTOR 03/31/252031 MR#: [id number] Acct: [id number] Name: PATRICIA PRESON Rep #: [id number] : 1990 34 From: Jana Santiago DO PCP: Dr. Luigi Santos MD Status:ADM IN Location: [facility]295-9 HPI - General General Date of Admission: 03/31/25 HPI Narrative PATRICIA PERSON, is a 34 y/o @ 39 weeks 2 days who presents to [facility] for induction of labor for gestational diabetes. Her has a long weekend off starting tomorrow and they requested IOL on this day. Her woodson score in the office was a 6 but she prefers to start her induction with cytotec. She requests epidural when the pain starts Maternal Data Information ALDAIR Calculator Estimated Delivery Date Method Current WG Current Estimate 04/05/25 LMP (Certain) 39w 2d PFSH PFSH Medical History Hypocalcemia Home Medications ???Medication ???Instructions ???Recorded ???Last Taken ???Type calcium carbonate 600 mg PO DAILY supplement 3 03/31/25 17:00 History vits no.126-ferrous fum 1 tab PO DAILY supplement 08/10/24 03/31/25 17:00 History 28 mg iron-folic acid 800 mcg tablet (Classic ) blood sugar diagnostic (Blood #120 ea 01/12/25 Unknown Rx Glucose Test strips) blood-glucose meter #1 ea 01/12/25 Unknown Rx lancets #200 ea 01/12/25 Unknown Rx Allergy/AdvReac Type Severity Reaction Status Date / Time No Known Allergies Allergy Verified 03/31/25 19:49 Family History Other Celiac disease Diabetes Heart disease Surgical History H/O wisdom tooth extraction Social History adopted: No household members: spouse 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 occupational 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: No pets and animals: Yes history of recent travel: Yes ([place], [place], [place], [place] (May 2024)) details: [place] (Summer 2023), [place] (Jun 2024) out of state: Yes out of country: Yes sexually active: Yes Smoking Status: Never smoker alcohol intake: never substance use type: does not use well-balanced diet: daily or most days caffeine: No eating out: rarely or never during the past year weight has: remained stable what type of physical activity do you participate in: none bj/uatsdin: Anabaptist seatbelt use: always do you feel safe at home: Yes 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 Elective abortions Hx Para 0 Spontaneous abortions Hx # Term Pregnancies Ectopic pregnancies Hx # Pregnancies Multiple births # of living children Visit Details Expected Delivery Route/Plan Labor Preferences- CB/BF classes: [] labor support person: miki labor intervention preferences: [] pain management options preferred: epidural cut cord/dad catch: probably not : yes PP control planned: [] discussed possible routes of delivery and associated risks: [] special requests: [] Plans Covid status: [] Flu vaccine: [] Tdap vaccine: given Rhogam: na LARC form signed: declines movement and labor precautions reviewed. Problem list reviewed and updated with the most current plan of care details and appropriate orders placed. Relevant counseling for the gestational age provided. Continue routine care and follow up unless otherwise noted in visit notes/problem list details OB Flowsheet Initial Weight: Not Recorded Date -???-???-???-???-?? ?-???-???-???-???-? [...] vb/cr amping. US scheduled. no concerns 11/18/24 -???-???-??? (more content not included)... Normal [facility] Syphilis Antibodieson 2024 Syphilis Abs Non-Reactive Normal Nonreactive [facility] Comment on above: Performed By: #### L 501.2830, L509.0116, L3890.6006, L100.0100 #### [facility] Laboratory [address] [place], [address] Type AND Screenon 03-31-2025 Ab SCREEN GEL Negative Normal [facility] Comment on above: Order Comment: Labor Performed By: #### L 100.0100, BTS #### [facility] Laboratory [address] [place], [address] Professional Tutor Office Visit Reporton 03-29-2025 Professional Tutor Office Visit Report [facility] [address], [address] [place] [address] OFFICE VISIT Date of Service: 03/29/25 MR#: [id number] Acct: [id number] Name: PATRICIA PERSON Rep #: [id number] : 1990 Provider: Dr. 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 Is patient in pain?: No Allergies No Known Allergies Allergy (Verified 03/29/25 13:27) Medications ???Medication ???Instructions ???Recorded ???Confirmed ???Type calcium carbonate 600 mg PO DAILY 08/26/23 03/29/25 History vits no.126-ferrous fum tab PO 08/10/24 03/29/25 History 28 mg iron-folic acid 800 mcg tablet (Classic ) blood sugar diagnostic (Blood #120 ea 01/12/25 03/29/25 Rx Glucose Test strips) blood-glucose meter #1 ea 01/12/25 03/29/25 Rx lancets #200 ea 01/12/25 03/29/25 Rx Last Menstrual Period: 06/29/24 Zika: Zika virus screening: Negative : No PFSH PFSH Medical History Hypocalcemia Surgical History H/O wisdom tooth extraction Family History Other Celiac disease Diabetes Heart disease Social History adopted: No household members: spouse 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 occupational 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: No pets and animals: Yes history of recent travel: Yes ([place], [place], [place], [place] (May 2024)) details: [place] (Summer 2023), [place] (Jun 2024) out of state: Yes out of country: Yes sexually active: Yes Smoking Status: Never smoker alcohol intake: never substance use type: does not use well-balanced diet: daily or most days caffeine: No eating out: rarely or never during the past year weight has: remained stable what type of physical activity do you participate in: none bj/uatsdin: Anabaptist seatbelt use: always do you feel safe at home: Yes 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 OB Visit ALDAIR Calculator Estimated Delivery Date Method Current WG Current Estimate 04/05/25 LMP (Certain) 39w 0d Expected Delivery Route/Plan Labor Preferences- CB/BF [...] US scheduled. no concerns 11/18/24 -???-???-???-???-?? ?-???-???-???-???-? ??-?? (more content not included)... Normal [facility] Laboratory - Chemistry and C hemistry - challengeOrdered By: Jana Roman on 03-25-2025 Glucose Ql (U) Negative [facility] Laboratory - UrinalysisOrder ed By: Jana Roman on 03-25-2025 Protein Ql (U) Negative [facility] Professional Tutor Office Visit Reporton 03-25-2025 Professional Tutor Office Visit Report [facility] [address], [address] [place] [address] OFFICE VISIT Date of Service: 03/25/25 MR#: [id number] Acct: [id number] Name: PATRICIA PERSON Rep #: [id number] : 1990 Provider: Dr. 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 Aircraft Required: No Is patient in pain?: No [...] animals: Yes history of recent travel: Yes ([place], [place], [place], [place] (May 2024)) details: [place] (Summer 2023), [place] (Jun 2024) out of state: Yes out of country: Yes sexually active: Yes Smoking Status: Never smoker alcohol intake: never substance use type: does not use well-balanced diet: daily or most days caffeine: No eating out: rarely or never during the past year weight has: remained stable what type of physical activity do you participate in: none bj/uatsdin: Anabaptist seatbelt use: always do you feel safe at home: Yes 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 [facility] Laboratory - Chemistry and C hemistry - challengeOrdered By: Marie Dockery on 03-17-2025 Glucose Ql (U) Negative [facility] Laboratory - UrinalysisOrder ed By: Marie Dockery on 03-17-2025 Protein Ql (U) Negative [facility] Professional Tutor Office Visit Reporton 03-17-2025 Professional Tutor Office Visit Report [facility] [address], [address] [place] [address] OFFICE VISIT Date of Service: 03/17/25 MR#: [id number] Acct: [id number] Name: PATRICIA PERSON Rep #: [id number] : 1990 Provider: Dr. 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 Required: No Is patient in pain?: No [...] animals: Yes history of recent travel: Yes ([place], [place], [place], [place] (May 2024)) details: [place] (Summer 2023), [place] (Jun 2024) out of state: Yes out of country: Yes sexually active: Yes Smoking Status: Never smoker alcohol intake: never substance use type: does not use well-balanced diet: daily or most days caffeine: No eating out: rarely or never during the past year weight has: remained stable what type of physical activity do you participate in: none bj/uatsdin: Anabaptist seatbelt use: always do you feel safe at home: Yes 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 Normal [facility] Rule out Beta Strep (Grp. B) on 03-10-2025 SIA Group B Beta Streptococcus is not isolated. Normal [facility] Comment on above: Performed By: #### L 501.0250, L509.8002, L3890.6006, L100.0100 #### [facility] Laboratory [address] [place], [place], [address] OB Limited With Biometricson 03-09-2025 OB Limited With Biometrics [facility] [address] [place], [place] [address] OB Limited With Biometrics MR#: [id number] Acct: [id number] Name: PATRICIA PERSON Rep #: [id number] : 1990 F 34 From: Erasmo sanchez MD PCP: Dr. Luigi Santos MD Status: [facility] Study: OB Limited With Biometrics Date of Exam: 03/09 Exam# [id number] Ordering Dr: Jana Santiago DO PROCEDURE: OB [...] 36 weeks and 2 days. Reading Location: [facility] CC: Dr. Luigi Santos MD; Dr. 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 And Marketing Professional: Signed Normal [facility] Laboratory - Chemistry and C hemistry - challengeOrdered By: Martha Novoa on 03-08-2025 Glucose Ql (U) Negative [facility] Laboratory - UrinalysisOrder ed By: Martha Novoa on 03-08-2025 Protein Ql (U) Negative [facility] [place] Professional T[facility] Office Visit Reporton 03-08-2025 Professional Tutor Office Visit Report [facility]'s [address], [address] [place] [address] OFFICE VISIT Date of Service: 03/08/25 MR#: [id number] Acct: [id number] Name: PATRICIA PERSON Rep #: [id number] : 1990 Provider: PADMINI hasnon Age/Sex: 34/F [place] [facility] [place]: Signed Intake Vital Signs 10/21/24 15:57 02/25/25 15:10 03/08/25 09:57 Height 5 ft 6 in 5 ft 6 in 5 ft 6 in Weight: 151 lb 6 oz BMI 24.4 BP 112/68 Intake Visit Reasons: 36 WK OB Chief Complaint: 36 Week OB [employer] Required: No Is patient in pain?: No [...] animals: Yes history of recent travel: Yes (Bee, Sebastián, [place], [place] (May 2024)) details: [place] (Summer 2023), [place] (Jun 2024) out of state: Yes out of country: Yes sexually active: Yes Smoking Status: Never smoker alcohol intake: never substance use type: does not use well-balanced diet: daily or most days caffeine: No eating out: rarely or never during the past year weight has: remained stable what type of physical activity do you participate in: none bj/uatsdin: Anabaptist seatbelt use: always do you feel safe at home: Yes 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 Normal [facility] Screening beta-hemolytic Str eptococcus cultureOrdered By: Martha Novoa on 03-08-2025 Beta-hemolytic Streptococcus culture Group B Beta Streptococcus is not isolated. [facility] Laboratory - Chemistry and C hemistry - challengeOrdered By: Jana Roman on 02-25-2025 Glucose Ql (U) Negative [facility] Laboratory - UrinalysisOrder ed By: Jana Roman on 02-25-2025 Protein Ql (U) Negative [facility] Professional Tutor Office Visit Reporton 02-25-2025 Professional Tutor Office Visit Report [facility], [address] [place] [address] OFFICE VISIT Date of Service: 02/25/25 MR#: [id number] Acct: [id number] Name: PATRICIA PERSON Rep #: [id number] : 1990 Provider: Dr. Jana Peck, Age/Sex: 34/F [place] [facility] [place]: Signed Intake Vital Signs 10/21/24 15:57 02/08/25 13:57 02/25/25 15:08 02/25/25 15:10 Height 5 ft 6 in 5 ft 6 in 5 ft 6 in 5 ft 6 in Weight: 152 lb 2 oz BMI 24.5 BP 115/71 Intake Visit Reasons: 34 WK OB [employer] Required: No Is patient in pain?: No [...] animals: Yes history of recent travel: Yes (Bee, Sebastián, [place], [place] (May 2024)) details: [place] (Summer 2023), [place] (Jun 2024) out of state: Yes out of country: Yes sexually active: Yes Smoking Status: Never smoker alcohol intake: never substance use type: does not use well-balanced diet: daily or most days caffeine: No eating out: rarely or never during the past year weight has: remained stable what type of physical activity do you participate in: none bj/uatsdin: Anabaptist seatbelt use: always do you feel safe at home: Yes 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 Normal [facility] Laboratory - Chemistry and C hemistry - challengeOrdered By: Talia Loredo on 02-08-2025 Glucose Ql (U) Negative [facility] Laboratory - UrinalysisOrder ed By: Talia Loredo on 02-08-2025 Protein Ql (U) Negative [facility] [place] Professional Tutor Office Visit Reporton 02-08-2025 Professional Tutor Office Visit Report [facility] [address], [address] [place] [address] OFFICE VISIT Date of Service: 02/08/25 MR#: [id number] Acct: [id number] Name: PATRICIA PERSON Rep #: [id number] : 1990 Provider: AARON Herrera ams Age/Sex: 34/F [place] [facility] [place]: Signed Intake Vital Signs 10/21/24 15:57 01/28/25 14:55 02/08/25 13:57 Height 5 ft 6 in 5 ft 6 in 5 ft 6 in Weight: 149 lb 9 oz BMI 24.1 BP 126/72 H Intake Visit Reasons: 34 WK OB Chief Complaint: 32wk OB [employer] Required: No Is patient in pain?: No [...] animals: Yes history of recent travel: Yes ([place]ee, [place], [place], [place] (May 2024)) details: [place] (Summer 2023), [place] (Jun 2024) out of state: Yes out of country: Yes sexually active: Yes Smoking Status: Never smoker alcohol intake: never substance use type: does not use well-balanced diet: daily or most days caffeine: No eating out: rarely or never during the past year weight has: remained stable what type of physical activity do you participate in: none bj/uatsdin: Anabaptist seatbelt use: always do you feel safe at home: Yes 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 ? (more content not included)... Normal [facility] Laboratory - Chemistry and C hemistry - challengeOrdered By: Marie Dockery on 01-28-2025 Glucose Ql (U) Negative [facility] Laboratory - UrinalysisOrder ed By: Marie Dockery on 01-28-2025 Protein Ql (U) Negative [facility] [place] Professional Tutor Office Visit Reporton 01-28-2025 Professional Tutor Office Visit Report [facility] [address], [address] [place] [address] OFFICE VISIT Date of Service: 01/28/25 MR#: [id number] Acct: [id number] Name: PATRICIA PERSON Rep #: [id number] : 1990 Provider: Dr. Marie treadwell MD Age/Sex: 34/F [place] [facility] Status: Signed Intake Vital Signs 10/21/24 15:57 01/11/25 14:33 01/28/25 14:53 01/28/25 14:55 Height 5 ft 6 in 5 ft 6 in 5 ft 6 in 5 ft 6 in Weight: 152 lb 2 oz BMI 24.5 BP 110/69 Intake Visit Reasons: 30 WK OB [employer] Required: No Is patient in pain?: No [...] animals: Yes history of recent travel: Yes ([place]ee, [place], [place], [place] (May 2024)) details: [place] (Summer 2023), [place] (Jun 2024) out of state: Yes out of country: Yes sexually active: Yes Smoking Status: Never smoker alcohol intake: never substance use type: does not use well-balanced diet: daily or most days caffeine: No eating out: rarely or never during the past year weight has: remained stable what type of physical activity do you participate in: none bj/uatsdin: Anabaptist seatbelt use: always do you feel safe at home: Yes 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 (more content not included)... Normal [facility] Gestational GTT 3HR 100gon 0 01-11-2025 3HR GTT- GEST. High [facility] Comment on above: Order Comment: Y Result [...] Col: 01/11/25 1143 Performed By: #### L 501.0250, L509.8002, L3890.6006, L100.0100 #### [facility] Laboratory [address] [place], [address] Glucose tolerance 3 hours ge stational panelOrdered By: Martha Novoa on 01-11-2025 Gestational Glucose Tolerance Test See comment [facility] Comment on above: FASTING 83 Col: 0411/06 [...] Roman on 01-11-2025 Glucose Ql (U) Negative [facility] Laboratory - UrinalysisOrder ed By: Jana Roman on 01-11-2025 Protein Ql (U) Negative [facility] Professional Tutor Office Visit Reporton 01-11-2025 Professional Tutor Office Visit Report [address], [address] [place] [address] OFFICE VISIT Date of Service: 01/11/25 MR#: [id number] Acct: [id number] Name: PATRICIA PERSON Rep #: [id number] : 1990 Provider: Dr. Jana Peck DO Age/Sex: 34/F [place] [facility] [place]: Signed Intake Vital Signs 10/21/24 15:57 11/18/24 14:04 12/16/24 09:41 01/11/25 14:30 01/11/25 14:33 Height 5 ft 6 in 5 ft 6 in 5 ft 6 in 5 ft 6 in 5 ft 6 in Weight: 151 lb 8 oz BMI 24.4 BP 122/71 H Intake Visit Reasons: 28 WK OB [employer] Required: No Is patient in pain?: No [...] animals: Yes history of recent travel: Yes ([place], [place], [place], [place] (May 2024)) details: [place] (Summer 2023), [place] (Jun 2024) out of state: Yes out of country: Yes sexually active: Yes Smoking Status: Never smoker alcohol intake: never substance use type: does not use well-balanced diet: daily or most days caffeine: No eating out: rarely or never during the past year weight has: remained stable what type of physical activity do you participate in: none bj/uatsdin: Anabaptist seatbelt use: always do you feel safe at home: Yes 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 ?-?? (more content not included)... Normal [facility] Quantitative serum or plasma 3 hour gestational glucose tolerance panelOrdered By: Martha Novoa on 01-11-2025 Glucose tolerance 3 hours gestational panel See comment [facility] Comment on above: FASTING 83 Col: 04/0 11/06 0750GLUCOSE TOLERANCE TEST FOR Reference Interval [...] Auto (Unsp spec) [#/Vol] 1.46 10*3/uL 0.83-4.51 [facility] Absolute neutrophil countOrd ered By: Marie Dockery on 01-04-2025 Neutrophils (Bld) [#/Vol] 6.9 10*3/uL 2.0-7.7 [facility] Automated lymphocyte count a s percentage of total leukocytesOrdered By: Marie Dockery on 01-04-2025 Lymphocytes/100 WBC Auto (Unsp spec) 16.0 % Low 19-41 [facility] [place] Basophil percentageOrdered B y: Marie Dockery on 01-04-2025 Basophils/100 WBC (Bld) 0.3 % 0-1 W [facility] CBC W/Diff, Automatedon 12-12 Absolute Lymph 1.46 X10 3/uL Normal 0.83-4.51 [facility] Comment on above: Performed By: #### L 501.0250, L509.8002, L3890.6006, L100.0100 #### [facility] Laboratory [address] [place], [address] Absolute Neut 6.9 X10 3/uL Normal 2.0-7.7 [facility] Comment on above: Performed By: #### L 501.0250, L509.8002, L3890.6006, L100.0100 #### [facility] Laboratory [address] [place], [address] Basophils/100 WBC (Bld) 0.3 % Normal 0-1 W [facility] Comment on above: Performed By: #### L 501.0250, L509.8002, L3890.6006, L100.0100 #### [facility] Laboratory [address] [place], [address] Eosinophils/100 WBC (Bld) 0.9 % Normal 0-5 [facility] Comment on above: Performed By: #### L 501.0250, L509.8002, L3890.6006, L100.0100 #### [facility] Laboratory [address] [place], [address] Erythrocyte distribution width (RBC) [Ratio] 13.4 % Normal 11.6-14.6 [facility] Comment on above: Performed By: #### L 501.0250, L509.8002, L3890.6006, L100.0100 #### [facility] Laboratory [address] [place], [address] Hematocrit (Bld) [Volume fraction] 38.0 % Normal 37-47 [facility] Comment on above: Performed By: #### L 501.0250, L509.8002, L3890.6006, L100.0100 #### [facility] Laboratory [address] [place], [address] Hemoglobin (Bld) [Mass/Vol] 12.6 g/dL Normal 12.0-15.0 [facility] Comment on above: Performed By: #### L 501.0250, L509.8002, L3890.6006, L100.0100 #### [facility] Laboratory [address] [place], [address] IG% 0.700 Normal 0.0-0.9 [facility] Comment on above: Result Comment: IG% - Immature Granulocytes (promyelocytes, myelocytes and metamyelocytes) > 1% indicates that a LEFT SHIFT is Present. Performed By: #### L 501.0250, L509.8002, L3890.6006, L100.0100 #### [facility] Laboratory [address] [place], [address] Lymphocytes/100 WBC (Bld) 16.0 % Low 19-41 [facility] Comment on above: Performed By: #### L 501.0250, L509.8002, L3890.6006, L100.0100 #### [facility] Laboratory [address] [place], [address] MCH (RBC) [Entitic mass] 30.6 pg Normal 27.0-32.0 [facility] Comment on above: Performed By: #### L 501.0250, L509.8002, L3890.6006, L100.0100 #### [facility] Laboratory [address] [place], [address] MCHC (RBC) [Mass/Vol] 33.2 g/dL Normal 32-36 [facility] Comment on above: Performed By: #### L 501.0250, L509.8002, L3890.6006, L100.0100 #### [facility] Laboratory [address] [place], [address] MCV (RBC) [Entitic vol] 92.2 fL Normal 81-99 W [facility] Comment on above: Performed By: #### L 501.0250, L509.8002, L3890.6006, L100.0100 #### [facility] [place] Laboratory [address] [place], [address] Monocytes/100 WBC (Bld) 5.9 % Normal 0-10 W [facility] Comment on above: Performed By: #### L 501.0250, L509.8002, L3890.6006, L100.0100 #### [facility] Laboratory [address] [place], [address] Neutrophils/100 WBC (Bld) 76.2 % High 47-70 [facility] Comment on above: Performed By: #### L 501.0250, L509.8002, L3890.6006, L100.0100 #### [facility] Laboratory [address] [place], [address] Nucleated RBC (Bld) [#/Vol] 0 10*3/uL Normal 0-5 [facility] Comment on above: Performed By: #### L 501.0250, L509.8002, L3890.6006, L100.0100 #### [facility] Laboratory [address] [place], [address] Platelet mean volume (Bld) [Entitic vol] 10.4 fL Normal 6.2-12.0 [facility] Comment on above: Performed By: #### L 501.0250, L509.8002, L3890.6006, L100.0100 #### [facility] Laboratory [address] [place], [address] Platelets (Bld) [#/Vol] 224 10*3/uL Normal 150-450 [facility] Comment on above: Performed By: #### L 501.0250, L509.8002, L3890.6006, L100.0100 #### [facility] Laboratory [address] [place], [address] RBC (Bld) [#/Vol] 4.12 10*6/uL Low 4.2-5.4 [facility] Comment on above: Performed By: #### L 501.0250, L509.8002, L3890.6006, L100.0100 #### [facility] Laboratory [address] [place], [address] RDW SD 46.0 fl High 35.1-43.9 [facility] Comment on above: Performed By: #### L 501.0250, L509.8002, L3890.6006, L100.0100 #### [facility] Laboratory [address] [place], [address] WBC (Bld) [#/Vol] 9.1 10*3/uL Normal 4.4-11.0 [facility] Comment on above: Performed By: #### L 501.0250, L509.8002, L3890.6006, L100.0100 #### [facility] Laboratory [address] [place], [address] Eosinophil percentageOrdered By: Marie Dockery on 01-04-2025 Eosinophils/100 WBC (Bld) 0.9 % 0-5 [facility] Erythrocyte distribution wid th ratioOrdered By: Marie Dockery on 01-04-2025 Erythrocyte distribution width (RBC) [Ratio] 13.4 % 11.6-14.6 [facility] Erythrocyte distribution wid th standard deviationOrdered By: Marie Dockery on 01-04-2025 Erythrocyte distribution width (RBC) [Entitic vol] 46.0 fL High 35.1-43.9 [facility] Erythrocyte distribution width (RBC) [Ratio] 46.0 fl High 35.1-43.9 [facility] Glucose Challenge Gest 1H 50 sandro 01-04-2025 GLU GEST 50g 1H 153 mg/dL High 70-140 [facility] Comment on above: Performed By: #### L 501.0250, L509.8002, L3890.6006, L100.0100 #### [facility] Laboratory [address] [place], [address] Glucose measurement at 2 peg rs post-dose gestational glucose tolerance testOrdered By: Marie Dockery on 01-04-2025 Glucose [Mass/Vol] 153 mg/dL High 70-140 [facility] Hematocrit Auto (Bld) [Volum e fraction]Ordered By: Marie Dockery on 01-04-2025 Hematocrit (Bld) [Volume fraction] 38.0 % 37-47 [facility] Hemoglobin measurementOrdere d By: Marie Dockery on 01-04-2025 Hemoglobin (Bld) [Mass/Vol] 12.6 g/dL 12.0-15.0 [facility] Immature granulocytes/100 WB C Auto (Bld)Ordered By: Marie Dockery on 01-04-2025 Immature granulocytes/100 WBC (Bld) 0.700 % 0.0-0.9 [facility] Comment on above: IG% - Immature Granu locytes (promyelocytes, myelocytes and metamyelocytes) > 1% indicates that a LEFT SHIFT is Present. L3890.6006on 01-04-2025 HIV Non-Reactive Normal Nonreactive [facility] Comment on above: Result Comment: Non- Reactive Reactive Repeatedly reactive samples must be confirmed according to CDC recommended confirmatory algorithms. The subresults for either HIVAG or AHIV can be used as an aid in the selection of the confirmation algorithm for reactive samples. Send out specimens with Reactive results to [facility] for confirmation. Order the HIV antibody detection and differentiation: lc#[id number] Performed By: #### L 501.0250, L509.8002, L3890.6006, L100.0100 #### [facility] Laboratory [address] [place], [place], [address] L509.8002on 01-04-2025 Syphilis Abs Non-Reactive Normal Nonreactive [facility] Comment on above: Performed By: #### L 501.0250, L509.8002, L3890.6006, L100.0100 #### [facility] Laboratory [address] [place], [address] Lymphocytes Auto (Unsp spec) [#/Vol]Ordered By: Marie Dockery on 01-04-2025 Lymphocytes (Bld) [#/Vol] 1.46 10*3/uL 0.83-4.51 [facility] Lymphocytes/100 WBC Auto (Un sp spec)Ordered By: Marie Dockery on 01-04-2025 Lymphocytes/100 WBC (Bld) 16.0 % Low 19-41 [facility] MCV (mean corpuscular volume ) determinationOrdered By: Marie Dockery on 01-04-2025 MCV (RBC) [Entitic vol] 92.2 fL 81-99 W [facility] Mean corpuscular hemoglobin (MCH) determinationOrdered By: Marie Dockery on 01-04-2025 MCH (RBC) [Entitic mass] 30.6 pg 27.0-32.0 [facility] Mean corpuscular hemoglobin concentration (MCHC) determinationOrdered By: Marie Dockery on 01-04-2025 MCHC (RBC) [Mass/Vol] 33.2 g/dL 32-36 [facility] Mean platelet volume determi nationOrdered By: Marie Dockery on 01-04-2025 Platelet mean volume (Bld) [Entitic vol] 10.4 fL 6.2-12.0 [facility] Monocyte percentageOrdered B y: Marie Dockery on 01-04-2025 Monocytes/100 WBC (Bld) 5.9 % 0-10 W [facility] Neutrophil percentageOrdered By: Marie Dockery on 01-04-2025 Neutrophils/100 WBC (Bld) 76.2 % High 47-70 [facility] No Panel InformationOrdered By: Marie Dockery on 01-04-2025 HIV (1&2) Antibody Non-Reactive Nonreactive [facility] Comment on above: Non-ReactiveReactive Repeatedly reactive samples must be confirmed according to CDC recommended confirmatory algorithms. The subresults for either HIVAG or AHIV can be used as an aid in the selection of the confirmation algorithm for reactive samples.Send out specimens with Reactive results to [facility] for confirmation.Order the HIV antibody detection and differentiation: #[id number] Nucleated red blood cell per centageOrdered By: Marie Dockery on 01-04-2025 Nucleated RBC/100 WBC (Bld) [Ratio] 0 % 0-5 [facility] Platelet countOrdered By: Moon Dockery on 01-04-2025 Platelets (Bld) [#/Vol] 224 10*3/uL 150-450 [facility] RBC Auto (Bld) [#/Vol]Ordere d By: Marie Dockery on 01-04-2025 RBC (Bld) [#/Vol] 4.12 10*6/uL Low 4.2-5.4 [facility] T. pallidum abOrdered By: Moon Dockery on 01-04-2025 Syphilis Total Antibody Non-Reactive Nonreactiv e [facility] White blood cell (WBC) count Ordered By: Marie Dockery on 01-04-2025 WBC (Bld) [#/Vol] 9.1 10*3/uL 4.4-11.0 [facility] Laboratory - Chemistry and C hemistry - challengeOrdered By: Marie Dockery on 12-16-2024 Glucose Ql (U) Negative [facility] Laboratory - UrinalysisOrder ed By: Marie Dockery on 12-16-2024 Protein Ql (U) Negative [facility] Professional Tutor Office Visit Reporton 12-16-2024 Professional Tutor Office Visit Report [facility] [address], [address] [place] [address] OFFICE VISIT Date of Service: 12/16/24 MR#: [id number] Acct: [id number] Name: PATRICIA PERSON Rep #: [id number] : 1990 Provider: Dr. Marie treadwell MD Age/Sex: 34/F [place] [facility] Status: Signed Intake Vital Signs 10/21/24 15:57 11/18/24 14:04 12/16/24 09:41 Height 5 ft 6 in 5 ft 6 in 5 ft 6 in Weight: 148 lb BMI 23.8 BP 118/74 Intake Visit Reasons: 24 WK OB [employer] Required: No Is patient in pain?: No [...] animals: Yes history of recent travel: Yes ([place], [place], [place], [place] (May 2024)) details: [place] (Summer 2023), [place] (Jun 2024) out of state: Yes out of country: Yes sexually active: Yes Smoking Status: Never smoker alcohol intake: never substance use type: does not use well-balanced diet: daily or most days caffeine: No eating out: rarely or never during the past year weight has: remained stable what type of physical activity do you participate in: none bj/uatsdin: Anabaptist seatbelt use: always do you feel safe at home: Yes 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 ?-??? (more content not included)... Normal [facility] Laboratory - Chemistry and C hemistry - challengeOrdered By: Jana Roman on 11-18-2024 Glucose Ql (U) Negative [facility] Laboratory - UrinalysisOrder ed By: Jana Roman on 11-18-2024 Protein Ql (U) Negative [facility] Professional Tutor Office Visit Reporton 11-18-2024 Professional Tutor Office Visit Report [facility] [address], [address] [place] [address] OFFICE VISIT Date of Service: 11/18/24 MR#: [id number] Acct: [id number] Name: PATRICIA PERSON Rep #: [id number] : 1990 Provider: Dr. Jana Peck DO Age/Sex: 34/F [place] [facility] [place]: Signed Intake Vital Signs 10/21/24 15:57 11/18/24 14:02 11/18/24 14:04 Height 5 ft 6 in 5 ft 6 in 5 ft 6 in Weight: 144 lb 4 oz BMI 23.3 BP 123/71 H Intake Visit Reasons: 20 WK [employer] Required: No Is patient in pain?: No [...] animals: Yes history of recent travel: Yes ([place], [place], [place], [place] (May 2024)) details: [place] (Summer 2023), [place] (Jun 2024) out of state: Yes out of country: Yes sexually active: Yes Smoking Status: Never smoker alcohol intake: never substance use type: does not use well-balanced diet: daily or most days caffeine: No eating out: rarely or never during the past year weight has: remained stable what type of physical activity do you participate in: none bj/uatsdin: Anabaptist seatbelt use: always do you feel safe at home: Yes 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 Normal [facility] Laboratory - Chemistry and C hemistry - challengeon 10-21-2024 Glucose Ql (U) Negative [facility] Laboratory - Urinalysison Protein Ql (U) Negative [facility] Professional Tutor Office Visit Reporton 10-21-2024 Professional Tutor Office Visit Report [facility] [address], [address] [place] [address] OFFICE VISIT Date of Service: 10/21/24 MR#: [id number] Acct: [id number] Name: PATRICIA PERSON Rep #: [id number] : 1990 Provider: AARON Herrera ams Age/Sex: 33/F Location[place] [facility] [place]: Signed Intake Vital Signs 09/24/24 10:00 10/21/24 15:50 10/21/24 15:57 Height 5 ft 6 in 5 ft 6 in 5 ft 6 in Weight: 140 lb BMI 22.6 BP 121/63 H Intake Visit Reasons: 16 WK [employer] Required: No Is patient in pain?: No [...] animals: Yes history of recent travel: Yes ([place], [place], [place], [place] (May 2024)) details: [place] (Summer 2023), [place] (Jun 2024) out of state: Yes out of country: Yes sexually active: Yes Smoking Status: Never smoker alcohol intake: never substance use type: does not use well-balanced diet: daily or most days caffeine: No eating out: rarely or never during the past year weight has: remained stable what type of physical activity do you participate in: none bj/uatsdin: Anabaptist seatbelt use: always do you feel safe at home: Yes 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 Normal [facility] Laboratory - Chemistry and C hemistry - challengeon 09-24-2024 Glucose Ql (U) Negative [facility] Laboratory - Urinalysison Protein Ql (U) Negative [facility] Professional Tutor Office Visit Reporton 09-24-2024 Professional Tutor Office Visit Report [facility] [address], [address] [place] [address] OFFICE VISIT Date of Service: 09/24/24 MR#: [id number] Acct: [id number] Name: PATRICIA PERSON Rep #: [id number] : 1990 Provider: Dr. Jana Peck DO Age/Sex: 33/F [place] [facility] [place]: Signed Intake Vital Signs 12/03/23 14:06 08/27/24 08:47 09/24/24 10:00 09/24/24 10:00 Height 5 ft 6 in 5 ft 6 in 5 ft 6 in 5 ft 6 in Weight: 138 lb BMI 22.2 BP 131/73 H Intake Visit Reasons: 12wk [employer] Required: No Is patient in pain?: No [...] animals: Yes history of recent travel: Yes ([place], [place], [place], [place] (May 2024)) details: [place] (Summer 2023), [place] (Jun 2024) out of state: Yes out of country: Yes sexually active: Yes Smoking Status: Never smoker alcohol intake: never substance use type: does not use well-balanced diet: daily or most days caffeine: No eating out: rarely or never during the past year weight has: remained stable what type of physical activity do you participate in: none bj/uatsdin: Anabaptist seatbelt use: always do you feel safe at home: Yes 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 Normal [facility] Chlamydia/GC PEG aptimaon CHLAMY,NUC ACID Negative Normal Negative [facility] Comment on above: Performed By: #### L 501.0250, L509.8002, L3890.6006, L100.0100 #### [facility] Laboratory [address] [place], [address] GC BY NUC ACID Negative Normal Negative [facility] Comment on above: Result Comment: Perf ormed at: =G - [facility] [address] [id number] Carpenter/Labor: Rekha Qureshi MD, Phone: [phone] Performed By: #### L 501.0250, L509.8002, L3890.6006, L100.0100 #### [facility] Laboratory [address] [place], [address] Urine Cultureon 08-28-2024 URC Culture exhibits no growth. Normal [facility] Comment on above: Performed By: #### L 501.0250, L509.8002, L3890.6006, L100.0100 #### [facility] Laboratory [address] [place], [address] Basic Metabolic Profile (BMP )on 08-27-2024 BUN/CRE 11.9 RATIO Normal 10-20 [facility] Comment on above: Order Comment: ADD O N Performed By: #### L 500.2500 #### [facility] Laboratory [address] [place], [address] CA,Total 9.0 mg/dL Normal 8.5-10.1 [facility] Comment on above: Order Comment: ADD O N Performed By: #### L 500.2500 #### [facility] Laboratory [address] [place], [address] Chloride [Moles/Vol] 103 mmol/L Normal 98-107 [facility] Comment on above: Order Comment: ADD O N Performed By: #### L 500.2500 #### [facility] Laboratory [address] [place], [address] CO2 [Moles/Vol] 27.0 mmol/L Normal 21.0-32.0 [facility] Comment on above: Order Comment: ADD O N Performed By: #### L 500.2500 #### [facility] Laboratory [address] [place], [address] Creatinine [Mass/Vol] 0.67 mg/dL Normal 0.55-1.02 [facility] Comment on above: Order Comment: ADD O N Result Comment: The validity of the calculated GFR GFRAA in patients over 70 years has not been determined. Clinical correlation is essential. Performed By: #### L 500.2500 #### [facility] Laboratory [address] [place], [address] EST GFR - AA 131 mL/min Normal >60 [facility] Comment on above: Order Comment: ADD O N Result Comment: Afri can [place] GFR Calc Performed By: #### L 500.2500 #### [facility] Laboratory [address] [place], [address] GAP 6 Normal 5-15 [facility] Comment on above: Order Comment: ADD O N Performed By: #### L 500.2500 #### [facility] Laboratory [address] [place], [address] GFR/1.73 sq M.predicted among non-blacks MDRD (S/P/Bld) [Vol rate/Area] 108 mL/min/{1.73_m2} Normal >60 [facility] Comment on above: Order Comment: ADD O N Result Comment: Non- GFR Calc Performed By: #### L 500.2500 #### [facility] Laboratory [address] [place], [address] Glucose [Mass/Vol] 87 mg/dL Normal 74-106 [facility] Comment on above: Order Comment: ADD O N Performed By: #### L 500.2500 #### [facility] Laboratory [address] [place], [address] Potassium [Moles/Vol] 3.9 mmol/L Normal 3.5-5.1 [facility] Comment on above: Order Comment: ADD O N Performed By: #### L 500.2500 #### [facility] Laboratory [address] [place], [address] Sodium [Moles/Vol] 136 mmol/L Normal 136-145 [facility] Comment on above: Order Comment: ADD O N Performed By: #### L 500.2500 #### [facility] Laboratory [address] [place], [address] Urea nitrogen [Mass/Vol] 8 mg/dL Normal 7-18 [facility] Comment on above: Order Comment: ADD O N Performed By: #### L 500.2500 #### [facility] Laboratory [address] [place], [address] CBC W/Diff, Automatedon 11-1 Absolute Lymph 1.42 X10 3/uL Normal 0.83-4.51 [facility] Comment on above: Performed By: #### L 501.0250, L509.8002, L3890.6006, L100.0100 #### [facility] Laboratory [address] [place], [address] Absolute Neut 4.7 X10 3/uL Normal 2.0-7.7 [facility] Comment on above: Performed By: #### L 501.0250, L509.8002, L3890.6006, L100.0100 #### [facility] Laboratory [address] [place], [address] Basophils/100 WBC (Bld) 0.6 % Normal 0-1 W [facility] Comment on above: Performed By: #### L 501.0250, L509.8002, L3890.6006, L100.0100 #### [facility] Laboratory [address] [place], [address] Eosinophils/100 WBC (Bld) 0.9 % Normal 0-5 [facility] Comment on above: Performed By: #### L 501.0250, L509.8002, L3890.6006, L100.0100 #### [facility] Laboratory [address] [place], [address] Erythrocyte distribution width (RBC) [Ratio] 13.2 % Normal 11.6-14.6 [facility] Comment on above: Performed By: #### L 501.0250, L509.8002, L3890.6006, L100.0100 #### [facility] Laboratory [address] [place], [address] Hematocrit (Bld) [Volume fraction] 39.7 % Normal 37-47 [facility] Comment on above: Performed By: #### L 501.0250, L509.8002, L3890.6006, L100.0100 #### [facility] Laboratory [address] [place], [address] Hemoglobin (Bld) [Mass/Vol] 12.8 g/dL Normal 12.0-15.0 [facility] Comment on above: Performed By: #### L 501.0250, L509.8002, L3890.6006, L100.0100 #### [facility] Laboratory [address] [place], [address] IG% 0.600 Normal 0.0-0.9 [facility] Comment on above: Result Comment: IG% - Immature Granulocytes (promyelocytes, myelocytes and metamyelocytes) > 1% indicates that a LEFT SHIFT is Present. Performed By: #### L 501.0250, L509.8002, L3890.6006, L100.0100 #### [facility] Laboratory [address] [place], [address] Lymphocytes/100 WBC (Bld) 20.7 % Normal 19-41 [facility] Comment on above: Performed By: #### L 501.0250, L509.8002, L3890.6006, L100.0100 #### [facility] Laboratory [address] [place], [address] MCH (RBC) [Entitic mass] 28.7 pg Normal 27.0-32.0 [facility] Comment on above: Performed By: #### L 501.0250, L509.8002, L3890.6006, L100.0100 #### [facility] Laboratory [address] [place], [address] MCHC (RBC) [Mass/Vol] 32.2 g/dL Normal 32-36 [facility] Comment on above: Performed By: #### L 501.0250, L509.8002, L3890.6006, L100.0100 #### [facility] Laboratory [address] [place], [address] MCV (RBC) [Entitic vol] 89.0 fL Normal 81-99 W [facility] Comment on above: Performed By: #### L 501.0250, L509.8002, L3890.6006, L100.0100 #### [facility] Laboratory [address] [place], [address] Monocytes/100 WBC (Bld) 8.6 % Normal 0-10 W [facility] Comment on above: Performed By: #### L 501.0250, L509.8002, L3890.6006, L100.0100 #### [facility] Laboratory [address] [place], [address] Neutrophils/100 WBC (Bld) 68.6 % Normal 47-70 [facility] Comment on above: Performed By: #### L 501.0250, L509.8002, L3890.6006, L100.0100 #### [facility] Laboratory [address] [place], [address] Nucleated RBC (Bld) [#/Vol] 0 10*3/uL Normal 0-5 [facility] Comment on above: Performed By: #### L 501.0250, L509.8002, L3890.6006, L100.0100 #### [facility] Laboratory [address] [place], [address] Platelet mean volume (Bld) [Entitic vol] 11.2 fL Normal 6.2-12.0 [facility] Comment on above: Performed By: #### L 501.0250, L509.8002, L3890.6006, L100.0100 #### [facility] Laboratory [address] [place], [address] Platelets (Bld) [#/Vol] 237 10*3/uL Normal 150-450 [facility] Comment on above: Performed By: #### L 501.0250, L509.8002, L3890.6006, L100.0100 #### [facility] Laboratory [address] [place], [address] RBC (Bld) [#/Vol] 4.46 10*6/uL Normal 4.2-5.4 [facility] Comment on above: Performed By: #### L 501.0250, L509.8002, L3890.6006, L100.0100 #### [facility] Laboratory [address] [place], [address] RDW SD 43.2 fl Normal 35.1-43.9 [facility] Comment on above: Performed By: #### L 501.0250, L509.8002, L3890.6006, L100.0100 #### [facility] Laboratory [address] [place], [address] WBC (Bld) [#/Vol] 6.9 10*3/uL Normal 4.4-11.0 [facility] Comment on above: Performed By: #### L 501.0250, L509.8002, L3890.6006, L100.0100 #### [facility] Laboratory [address] [place], [address] HIV - WCHon 08-27-2024 HIV Non-Reactive Normal Nonreactive [facility] Comment on above: Order Comment: Reaso n for Exam: Performed By: #### L 501.0250, L509.8002, L3890.6006, L100.0100 #### [facility] [address] [place], [address] Hepatitis B Surface Antigeno n 08-27-2024 HEP B Surf Ag Non-Reactive Normal Nonreactive [facility] Comment on above: Order Comment: Reaso n for Exam: Performed By: #### L 501.0250, L509.8002, L3890.6006, L100.0100 #### [facility] [address] [place], [address] Hepatitis C Antibodyon 08-27 Hepatitis C AB Non-Reactive Normal Nonreactive [facility] Comment on above: Order Comment: Reaso n for Exam: Result Comment: Non Reactive: < 0.8 Equivocal: >/= 0.8 to < 1.0 Reactive: >/= 1.0 The CDC requires that a reactive/equivocal HCV antibody result be sent out for confirmation. HCV Quant by PCR testing. Performed By: #### L 501.0250, L509.8002, L3890.6006, L100.0100 #### [facility] [address] [place], [address] L509.8000on 08-27-2024 Syphilis Abs Non-Reactive Normal [facility] Comment on above: Order Comment: Reaso n for Exam: Performed By: #### L 501.0250, L509.8002, L3890.6006, L100.0100 #### [facility] Laboratory [address] [place], [address] Professional Tutor Office Visit Reporton 08-27-2024 Professional Tutor Office Visit Report [facility] [address], [address] [place] [address] OFFICE VISIT Date of Service: 08/27/24 MR#: [id number] Acct: [id number] Name: PATRICIA PERSON Rep #: [id number] : 1990 Provider: AARON buenrostro Age/Sex: 33/F [place] [facility] Status: Signed Intake Vital Signs 12/03/23 14:06 08/27/24 08:47 Height 5 ft 6 in 5 ft 6 in Weight: 137 lb BMI 22.1 BP 133/77 H Intake Visit Reasons: LMP 06/29 ALDAIR 04/05 [employer] Required: No Is patient in pain?: No [...] animals: Yes history of recent travel: Yes ([place], [place], [place], [place] (May 2024)) details: [place] (Summer 2023), [place] (Jun 2024) out of state: Yes out of country: Yes sexually active: Yes Smoking Status: Never smoker alcohol intake: never substance use type: does not use well-balanced diet: daily or most days caffeine: No eating out: rarely or never during the past year weight has: remained stable what type of physical activity do you participate in: none bj/uatsdin: Anabaptist seatbelt use: always do you feel safe at home: Yes 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 Normal [facility] Rubella IgGon 08-27-2024 Rubella IgG Reactive Normal Nonreactive [facility] Comment on above: Order Comment: Reaso n for Exam: Result Comment: Anti body Results Interpretation of Immune Status Non Reactive Presumed Non-Immune Equivocal Equivocal Reactive Presumed Immune Performed By: #### L 501.0250, L509.8002, L3890.6006, L100.0100 #### [facility] [address] [place], [address] Type AND Screenon 08-27-2024 Ab SCREEN GEL PENDING Normal [facility] Comment on above: Order Comment: PN Performed By: #### L 501.0250, L509.8002, L3890.6006, L100.0100 #### [facility] [address] [place], [address] ABO and Rh group Nom (Bld) Blood group A Rh(D) positive Normal [facility] Comment on above: Order Comment: PN Performed By: #### L 501.0250, L509.8002, L3890.6006, L100.0100 #### [facility] Laboratory [address] [place], [address] Absolute lymphocyte countOrd ered By: Luigi Santos on 08-25-2023 Lymphocytes Auto (Unsp spec) [#/Vol] 1.58 10*3/uL 0.83-4.51 [facility] Basophil percentageOrdered B y: Luigi Santos on 08-25-2023 Basophils/100 WBC (Bld) 0.9 % 0-1 W [facility] Bilirubin [Mass/Vol] 0.40 mg/dL 0.20-1.00 [facility] Comment on above: For patients on eltr ombopag therapy, use of [employer] [place] TBIL is not recommended. Chloride [Moles/Vol] 107 mmol/L 98-107 [facility] Eosinophils/100 WBC (Bld) 1.3 % 0-5 [facility] Glucose [Mass/Vol] 95 mg/dL 74-106 [facility] Neutrophils (Bld) [#/Vol] 2.5 10*3/uL 2.0-7.7 [facility] Neutrophils/100 WBC (Bld) 54.2 % 47-70 [facility] Potassium [Moles/Vol] 4.0 mmol/L 3.5-5.1 [facility] Protein [Mass/Vol] 7.0 g/dL 6.4-8.2 [facility] Sodium [Moles/Vol] 140 mmol/L 136-145 [facility] WBC (Bld) [#/Vol] 4.6 10*3/uL 4.4-11.0 [facility] Blood erythrocytes count (nu mber/volume)Ordered By: Luigi Santos on 08-25-2023 RBC (Bld) [#/Vol] 4.31 10*6/uL 4.2-5.4 [facility] Blood hemoglobin measurement (mass/volume)Ordered By: Luigi Santos on 08-25-2023 Hemoglobin (Bld) [Mass/Vol] 11.3 g/dL 12.0-15.0 [facility] Blood lymphocytes/100 leukoc ytesOrdered By: Luigi Santos on 08-25-2023 Lymphocytes/100 WBC (Bld) 34.1 % 19-41 [facility] Blood monocytes/100 leukocyt esOrdered By: Luigi Santos on 08-25-2023 Monocytes/100 WBC (Bld) 9.3 % 0-10 W [facility] Blood platelet mean volumeOr dered By: Luigi Santos on 08-25-2023 Platelet mean volume (Bld) [Entitic vol] 11.1 fL 6.2-12.0 [facility] Determination of erythrocyte mean corpuscular volume (MCV)Ordered By: Luigi Santos on 08-25-2023 MCV (RBC) [Entitic vol] 86.8 fL 81-99 W [facility] Hematocrit Auto (Bld) [Volum e fraction]Ordered By: Luigi Santos on 08-25-2023 Hematocrit (Bld) [Volume fraction] 37.4 % 37-47 [facility] Laboratory - Chemistry and C hemistry - challengeOrdered By: Luigi Santos on 08-25-2023 ALP [Catalytic activity/Vol] 63 U/L 45-117 [facility] ALT [Catalytic activity/Vol] 20 U/L 13-56 [facility] [place] CO2 [Moles/Vol] 28.0 mmol/L 21.0-32.0 [facility] [place] Globulin (S) [Mass/Vol] 3.4 g/dL 2.2-4.2 W [facility] Urea nitrogen/Creatinine [Mass ratio] 13.5 mg/mg 10-20 [facility] [place] Laboratory - Hematology and Cell countsOrdered By: Luigi Santos on 08-25-2023 Erythrocyte distribution width (RBC) [Entitic vol] 45.9 fL 35.1-43.9 [facility] [place] Erythrocyte distribution width (RBC) [Ratio] 14.4 % 11.6-14.6 [facility] [place] Immature granulocytes/100 WBC (Bld) 0.200 % 0.0-0.9 [facility] [place] Comment on above: IG% - Immature Granu locytes (promyelocytes, myelocytes and metamyelocytes) > 1% indicates that a LEFT SHIFT is Present. MCH (RBC) [Entitic mass] 26.2 pg 27.0-32.0 [facility] [place] Nucleated RBC/100 WBC (Bld) [Ratio] 0 % 0-5 [facility] [place] MCHC Auto (RBC) [Mass/Vol]Or dered By: Luigi Santos on 08-25-2023 MCHC (RBC) [Mass/Vol] 30.2 g/dL 32-36 [facility] No Panel InformationOrdered By: Luigi Santos on 08-25-2023 Estimated GFR (MDRD) Amer 118 mL/min >60 [facility] [place] Comment on above: GFR Calc Estimated GFR (MDRD) Non-Af Amer 97 mL/min >60 [facility] [place] Comment on above: Non- GFR Calc Vitamin D 25-Hydroxy 29.0 ng/mL [facility] Comment on above: Vitamin D 25(OH) Sta tus Range Deficiency <20 ng/mL (50nmol/L) Insufficiency 20 - 30 ng/mL (50 - 75 nmol/L) Sufficiency 30 - 100 ng/mL (75 - 250 nmol/L) Toxicity >100 ng/mL (>250 nmol/L) Platelets bldOrdered By: Tim Santos on 08-25-2023 Platelets (Bld) [#/Vol] 218 10*3/uL 150-450 [facility] [place] Serum or plasma albumin anamika urement (mass/volume)Ordered By: Luigi Santos on 08-25-2023 Albumin [Mass/Vol] 3.6 g/dL 3.2-5.0 [facility] Serum or plasma albumin/glob ulin mass ratioOrdered By: Luigi Santos on 08-25-2023 Albumin/Globulin [Mass ratio] 1.1 {ratio} 0.9-2.4 [facility] [place] Serum or plasma calcium anamika urement (mass/volume)Ordered By: Luigi Santos on 08-25-2023 Calcium [Mass/Vol] 8.1 mg/dL 8.5-10.1 [facility] Serum or plasma creatinine m easurement (mass/volume)Ordered By: Luigi Santos on 08-25-2023 Creatinine [Mass/Vol] 0.74 mg/dL 0.55-1.02 [facility] Comment on above: The validity of the calculated GFR & GFRAA in patients over 70 years has not been determined. Clinical correlation is essential. Serum or plasma urea nitroge n measurement (mass/volume)Ordered By: Luigi Santos on 08-25-2023 Urea nitrogen [Mass/Vol] 10 mg/dL 7-18 [facility] [place] Thin prep Papanicolaou smear with manual screeningOrdered By: Luigi Santos on 08-25-2023 Thin prep Papanicolaou smear with manual screening 16 U/L 15-37 [facility] [place] Thin prep Papanicolaou smear with manual screening 5 5-15 [facility] [place] Laboratory - Microbiology an d Antimicrobial susceptibilityon 05-19-2023 SARS-CoV-2 (COVID-19) RNA PEG+probe Ql (Unsp spec) Detected [facility] [place] GLUon 06-13-2017 Glucose mass conc 90 mg/dL Normal 70-105 [facility] ([place] Comment on above: Performed By: #### Javy ALMEIDA, LIPID ####[id number] [place], [place] [address] LIPIDon 06-13-2017 Cholesterol 179 mg/dL Normal 131-200 [facility] ([place] Comment on above: Result Comment: Chol esterol Reference Interval:Less than 200 [id number] Borderline high ncfl502 and above High risk Performed By: #### Javy ALMEIDA, LIPID ####[id number] [place], [place] [address] HDL Cholesterol 80 mg/dL Normal 35-90 [facility] ([place] Comment on above: Result Comment: HDL Reference Interval:Less than 40 Low - high risk60 or above Optimal/lowers risk Performed By: #### Javy ALMEIDA, LIPID ####[id number] [place], [place] [address] LDL Cholesterol 90 mg/dL Normal 0-130 [facility] ([place] Comment on above: Result Comment: LDL is a calculated result and requires a 12-hr fast.LDL Reference Interval:Less than 100 [id number] Near or above [id number] Borderline high [id number] High clbl058 and above Very high risk Performed By: #### Javy ALMEIDA, LIPID ####[id number] [place], [place] [address] Triglyceride 45 mg/dL Normal 40-150 [facility] ([place] Comment on above: Result Comment: Trig lyceride Reference Interval:Less than 150 [id number] Borderline high [id number] High bykh055 or higher Very high risk Performed By: #### Javy ALMEIDA, LIPID ####[id number] [place], [place] [address] Vital Signs Date Time Vital Sign Value Performing Clinician Facility 03-29-2025 13:32-0400 Body height 167.[address] Luigi Santos MD Work Phone: [facility] [place] 03-29-2025 13:27-0400 Body mass index (BMI) [Ratio] 24.7 kg/m2 Dr. Luigi Santos MD Work Phone: [facility] [place] 03-29-2025 13:27-0400 Body weight 69.[address] Luigi Santos MD Work Phone: [facility] [place] 03-29-2025 13:27-0400 Diastolic blood pressure 74 mm[Hg] Dr. Luigi Santos MD Work Phone: [facility] [place] 03-29-2025 13:27-0400 Systolic blood pressure 127 mm[Hg] Dr. Luigi Santos MD Work Phone: [facility] [place] 03-25-2025 13:03-0400 Body height 167.[address] Luigi Santos MD Work Phone: [facility] [place] 03-25-2025 13:03-0400 Body mass index (BMI) [Ratio] 24.7 kg/m2 Dr. Luigi Santos MD Work Phone: [facility] [place] 03-25-2025 13:03-0400 Body weight 69.[address] Luigi Santos MD Work Phone: [facility] [place] 03-25-2025 13:03-0400 Diastolic blood pressure 75 mm[Hg] Dr. Luigi Santos MD Work Phone: [facility] [place] 03-25-2025 13:03-0400 Systolic blood pressure 125 mm[Hg] Dr. Luigi Santos MD Work Phone: [facility] [place] 03-17-2025 09:21-0400 Body height 167.[address] Luigi Santos MD Work Phone: [facility] [place] 03-17-2025 09:20-0400 Body mass index (BMI) [Ratio] 24.8 kg/m2 Dr. Luigi Santos MD Work Phone: [facility] [place] 03-17-2025 09:20-0400 Body weight 69.[address] Luigi Santos MD Work Phone: [facility] [place] 03-17-2025 09:20-0400 Diastolic blood pressure 74 mm[Hg] Dr. Luigi Santos MD Work Phone: [facility] [place] 03-17-2025 09:20-0400 Systolic blood pressure 131 mm[Hg] Dr. Luigi Santos MD Work Phone: [facility] [place] 03-08-2025 09:57-0400 Body height 167.[address] Luigi Santos MD Work Phone: [facility] [place] 03-08-2025 09:57-0400 Body mass index (BMI) [Ratio] 24.4 kg/m2 Dr. Luigi Santos MD Work Phone: [facility] [place] 03-08-2025 09:57-0400 Body weight 68.[address] Luigi Santos MD Work Phone: [facility] [place] 03-08-2025 09:57-0400 Diastolic blood pressure 68 mm[Hg] Dr. Luigi Santos MD Work Phone: [facility] [place] 03-08-2025 09:57-0400 Systolic blood pressure 112 mm[Hg] Dr. Luigi Santos MD Work Phone: [facility] [place] 02-25-2025 15:10-0400 Body height 167.[address] Luigi Santos MD Work Phone: [facility] [place] 02-25-2025 15:08-0400 Body mass index (BMI) [Ratio] 24.5 kg/m2 Dr. Luigi Santos MD Work Phone: [facility] [place] 02-25-2025 15:08-0400 Body weight [address] Luigi Santos MD Work Phone: [facility] [place] 02-25-2025 15:08-0400 Diastolic blood pressure 71 mm[Hg] Dr. Luigi Santos MD Work Phone: [facility] [place] 02-25-2025 15:08-0400 Systolic blood pressure 115 mm[Hg] Dr. Luigi Santos MD Work Phone: [facility] [place] 02-08-2025 13:57-0400 Body mass index (BMI) [Ratio] 24.1 kg/m2 Dr. Luigi Santos MD Work Phone: [facility] [place] 02-08-2025 13:57-0400 Body weight 67.[address] Luigi Santos MD Work Phone: [facility] [place] 02-08-2025 13:57-0400 Diastolic blood pressure 72 mm[Hg] Dr. Luigi Santos MD Work Phone: [facility] [place] 02-08-2025 13:57-0400 Systolic blood pressure 126 mm[Hg] Dr. Luigi Santos MD Work Phone: [facility] [place] 01-28-2025 14:53-0400 Body mass index (BMI) [Ratio] 24.5 kg/m2 Dr. Luigi Santos MD Work Phone: [facility] [place] 01-28-2025 14:53-0400 Body weight [address] Luigi Santos MD Work Phone: [facility] [place] 01-28-2025 14:53-0400 Diastolic blood pressure 69 mm[Hg] Dr. Luigi Santos MD Work Phone: [facility] [place] 01-28-2025 14:53-0400 Systolic blood pressure 110 mm[Hg] Dr. Luigi Santos MD Work Phone: [facility] [place] 01-11-2025 14:33-0400 Body height 167.[address] Luigi Santos MD Work Phone: [facility] [place] 01-11-2025 14:30-0400 Body mass index (BMI) [Ratio] 24.4 kg/m2 Dr. Luigi Santos MD Work Phone: [facility] [place] 01-11-2025 14:30-0400 Body weight 68.[address] Luigi Santos MD Work Phone: [facility] [place] 01-11-2025 14:30-0400 Diastolic blood pressure 71 mm[Hg] Dr. Luigi Santos MD Work Phone: [facility] [place] 01-11-2025 14:30-0400 Systolic blood pressure 122 mm[Hg] Dr. Luigi Santos MD Work Phone: [facility] [place] 12-16-2024 09:41-0500 Body height 167.[address] Luigi Santos MD Work Phone: [facility] [place] 12-16-2024 09:41-0500 Body mass index (BMI) [Ratio] 23.8 kg/m2 Dr. Luigi Santos MD Work Phone: [facility] [place] 12-16-2024 09:41-0500 Body weight 67.[address] Luigi Santos MD Work Phone: [facility] [place] 12-16-2024 09:41-0500 Diastolic blood pressure 74 mm[Hg] Dr. Luigi Santos MD Work Phone: [facility] [place] 12-16-2024 09:41-0500 Systolic blood pressure 118 mm[Hg] Dr. Luigi Santos MD Work Phone: [facility] [place] 11-18-2024 14:02-0500 Body mass index (BMI) [Ratio] 23.3 kg/m2 Dr. Luigi Santos MD Work Phone: [facility] [place] 11-18-2024 14:02-0500 Body weight 65.[address] Luigi Santos MD Work Phone: [facility] [place] 11-18-2024 14:02-0500 Diastolic blood pressure 71 mm[Hg] Dr. Luigi Santos MD Work Phone: [facility] [place] 11-18-2024 14:02-0500 Systolic blood pressure 123 mm[Hg] Dr. Luigi Santos MD Work Phone: [facility] [place] 10-21-2024 15:50-0500 Body mass index (BMI) [Ratio] 22.6 kg/m2 Dr. Luigi Santos MD Work Phone: [facility] [place] 10-21-2024 15:50-0500 Body weight 63.[address] Luigi Santos MD Work Phone: [facility] [place] 10-21-2024 15:50-0500 Diastolic blood pressure 63 mm[Hg] Dr. Luigi Santos MD Work Phone: [facility] [place] 10-21-2024 15:50-0500 Systolic blood pressure 121 mm[Hg] Dr. Luigi Santos MD Work Phone: [facility] [place] 09-24-2024 10:00-0500 Body mass index (BMI) [Ratio] 22.2 kg/m2 Dr. Luigi Santos MD Work Phone: [facility] [place] 09-24-2024 10:00-0500 Body weight 62.[address] Luigi Santos MD Work Phone: [facility] [place] 09-24-2024 10:00-0500 Diastolic blood pressure 73 mm[Hg] Dr. Luigi Santos MD Work Phone: [facility] [place] 09-24-2024 10:00-0500 Systolic blood pressure 131 mm[Hg] Dr. Luigi Santos MD Work Phone: [facility] [place] 08-25-2023 10:03-0500 Body height 167.[address] Luigi Santos Work Phone: [facility] [place] 08-25-2023 10:03-0500 Body mass index (BMI) [Ratio] 21.3 kg/m2 Dr. Luigi Santos Work Phone: [facility] [place] 08-25-2023 10:03-0500 Body temperature 98.3 [degF] Dr. Luiig Santos Work Phone: [facility] [place] 08-25-2023 10:03-0500 Body weight 59.[address] Luigi Santos Work Phone: [facility] [place] 08-25-2023 10:03-0500 Diastolic blood pressure 60 mm[Hg] Dr. Luigi Santos Work Phone: [facility] [place] 08-25-2023 10:03-0500 Heart rate 50 /min Dr. Luigi Santos Work Phone: [facility] [place] 08-25-2023 10:03-0500 Respiratory rate 16 /min Dr. Luigi Santos Work Phone: [facility] [place] 08-25-2023 10:03-0500 SaO2% (BldA) [Mass fraction] 98 % Dr. Luigi Santos Work Phone: [facility] [place] 08-25-2023 10:03-0500 Systolic blood pressure 102 mm[Hg] Dr. Luigi Santos Work Phone: [facility] [place] 05-19-2023 10:12-0400 Body mass index (BMI) [Ratio] 20.3 kg/m2 Dr. Luigi Santos Work Phone: [facility] [place] 05-19-2023 10:12-0400 Body temperature 100.2 [degF] Dr. Luigi Santos Work Phone: [facility] [place] 05-19-2023 10:12-0400 Body weight 57.[address] Luigi Santos Work Phone: [facility] [place] 05-19-2023 10:12-0400 Diastolic blood pressure 64 mm[Hg] Dr. Luigi Santos Work Phone: [facility] [place] 05-19-2023 10:12-0400 Heart rate 103 /min Dr. Luigi Santos Work Phone: [facility] [place] 05-19-2023 10:12-0400 Respiratory rate 16 /min Dr. Luigi Santos Work Phone: [facility] [place] 05-19-2023 10:12-0400 SaO2% (BldA) [Mass fraction] 98 % Dr. Luigi Santos Work Phone: [facility] [place] 05-19-2023 10:12-0400 Systolic blood pressure 118 mm[Hg] Dr. Luigi Santos Work Phone: [facility] [place] Encounters Encounter Date Encounter Type Care Provider Facility Start: 03-31-2025 ambulatory Jana Light cility:[facility] Start: 03-31-2025 Evaluation and management of inpatient Jana Santiago Facility:[facility] [place] Start: 03-29-2025 End: 03-29-[address] Jana Santiago DO -[facility] Work Phone: Start: 03-29-2025 End: 03-29-[address] Luigi Santos MD Work Phone: [facility] Work Phone: Start: 03-25-2025 End: 03-25-[address] Jana Santiago DO -[facility] Work Phone: Start: 03-25-2025 End: 03-25-[address] Luigi Santos MD Work Phone: [facility] Work Phone: Start: 03-17-2025 End: 03-17-[address] Marie Dockery MD -[facility] Work Phone: Start: 03-17-2025 End: 03-17-[address] Luigi Santos MD Work Phone: [facility] Work Phone: Start: 03-09-2025 End: 03-09-[address] Luigi Santos MD Work Phone: [facility] [place] Work Phone: Start: 03-09-2025 End: 03-09-[address] Jana Santiago DO -[facility] Work Phone: Start: 03-08-2025 End: 03-08-[address] Luigi Santos MD Work Phone: [facility] [place] Work Phone: Start: 03-08-2025 End: 03-08-2025 Patient encounter procedure Martha Novoa CONTROL ROOM TECHNICIAN-C -Laboratory Specimen Work Phone: Start: 03-08-2025 End: 03-08-2025 Patient encounter procedure Martha Novoa CONTROL ROOM TECHNICIAN-C -[facility] Work Phone: Start: 03-08-2025 End: 03-09-[address] Luigi Santos MD Work Phone: [facility] Work Phone: Start: 03-08-2025 End: 03-08-[facility] [place] Start: 02-25-2025 End: 02-25-[address] Jana Santiago DO -[facility] Work Phone: Start: 02-25-2025 End: 02-25-[address] Luigi Santos MD Work Phone: [facility] Work Phone: Start: 02-08-2025 End: 02-08-2025 Patient encounter procedure Talia Loredo CNM -[facility] Work Phone: Start: 02-08-2025 End: 02-08-2025 ambulatory [facility] Danielle Facility:[facility] Start: 01-28-2025 End: 01-28-[address] Marie Dockery MD -[facility] Work Phone: Start: 01-28-2025 End: 01-28-2025 ambulatory [facility] Facility[facility] Start: 01-11-2025 End: 01-11-[address] Jana Santiago DO -[facility] Work Phone: Start: 01-11-2025 End: 01-11-2025 ambulatory [facility] Facility:[facility] Start: 01-11-2025 End: 01-11-[address] Luigi Santos MD Work Phone: [facility] [place] Work Phone: Start: 01-11-2025 End: 01-11-2025 Patient encounter procedure Martha Novoa CONTROL ROOM TECHNICIAN-C -Laboratory Work Phone: Start: 01-11-2025 End: 01-11-2025 ambulatory Martha Novoa Facility:[facility] [place] Start: 01-04-2025 End: 01-04-[address] Luigi Santos MD Work Phone: [facility] [place] Work Phone: Start: 01-04-2025 End: 01-04-2025 Patient encounter procedure Martha Novoa CONTROL ROOM TECHNICIAN-C -Lab, [facility] Start: 01-04-2025 End: 01-04-2025 ambulatory Martha Novoa Facility:[facility] [place] Start: 12-16-2024 End: 12-16-[address] Marie Dockery MD -[facility] Work Phone: Start: 12-16-2024 End: 12-16-2024 ambulatory [facility] Facility:[facility] Start: 11-18-2024 End: 11-18-[address] Jana Santiago DO -[facility] Work Phone: Start: 11-18-2024 End: 11-18-2024 ambulatory Darrylstevenemily Santos Facility:[facility] Start: 11-09-2024 End: 11-09-2024 ambulatory [facility] Start: 10-21-2024 End: 10-21-2024 Patient encounter procedure Talia HERNANDEZ -[facility] Work Phone: Start: 10-21-2024 End: 10-21-2024 ambulatory Donovanchrisemily Rushbhanu Facility:[facility] Start: 09-24-2024 End: 09-24-[address] Jana Santiago DO -[facility] Work Phone: Start: 09-24-2024 End: 09-24-2024 ambulatory Jana Santiago Facility:[facility] Start: 08-27-2024 End: 08-27-2024 ambulatory Columbia Deven Facility:[facility] Start: 08-27-2024 End: 08-27-2024 ambulatory [facility] Facility:[facility] Start: 08-10-2024 ambulatory R[facility]e [facility] Facility :[facility] Start: 08-26-2023 Non-patient / Non-visit Dr. Donovan Santos Work Phone: [facility] Work Phone: Start: 08-25-2023 End: 08-25-[address] Luigi Santos Work Phone: [facility] [place] Work Phone: Start: 08-25-2023 End: 08-25-2023 Encounter for general adult medical examination without abnormal findings Dr. Luigi Santos Work Phone: [facility] [place] Start: 08-25-2023 End: 08-25-[address] Luigi Santos Work Phone: [facility] Work Phone: Start: 05-19-2023 End: 05-19-[address] Luigi Santos Work Phone: [facility] Work Phone: Start: 06-13-[address] Luigi Santos Work Phone: [facility] Start: 06-13-2017 End: 06-18-2017 [facility] Facility:[facility] Procedures Date Procedure Procedure Detail Performing Clinician Start: 03-09-2025 Ultrasound scan for growth Dr. Luigi Santos MD Work Phone: Start: 03-08-2025 Beta-hemolytic Streptococcus culture Dr. Luigi Santos MD Work Phone: Start: 01-04-2025 Serologic test for syphilis Dr. Luigi Santos MD Work Phone: Plan of Treatment Date Care Activity Detail Author Start: 08-25-2023 Patient referral [facility] Work Phone: Patient referral [facility] Work Phone: Streptococcus agalac tiae [Presence] in Unspecified specimen by Organism specific culture [facility] Immunizations Immunization Date Immunization Notes [facility] tetanus toxoid, redu lolly diphtheria toxoid, and acellular pertussis vaccine, adsorbed Dr. Luigi Santos MD Work Phone: [facility] Payers Date Payer Category Payer Unknown MMM [id number] 2024 Unknown [id number] 2024 Unknown [id number] 2024 Unknown . 2024 Private Health Insurance [id number] 2024 Self-pay [id number] 2017 Unknown [id number] [facility] [id number] Unknown [facility] [place] [place] [id number] Unknown [facility] [id number] Unknown [id number] 2.16.840.1.740768.3.579.2.46 2 Unknown [id number] 2.16.840.1.300155.3.579.2.46 2 Unknown [id number] 2.16.840.1.293333.3.579.2.46 2 Unknown [id number] 2.16.840.1.867544.3.579.2.46 2 Unknown [id number] 2.16.840.1.720377.3.579.2.46 2 Unknown [id number] 2.16.840.1.792773.3.579.2.46 2 Unknown [id number] 2.16.840.1.963543.3.579.2.46 2 Unknown [id number] 2.16.840.1.797957.3.579.2.46 2 Unknown [id number] 2.16.840.1.321960.3.579.2.46 2 Unknown [id number] 2.16.840.1.887630.3.579.2.46 2 Unknown [id number] 2.16.840.1.450228.3.579.2.46 2 Unknown [id number] 2.16.840.1.135792.3.579.2.46 2 Unknown [id number] 2.16.840.1.301019.3.579.2.46 2 Unknown [id number] 2.16.840.1.630322.3.579.2.46 2 Unknown [id number] 2.16.840.1.982591.3.579.2.46 2 Unknown [id number] 2.16.840.1.283395.3.579.2.46 2 Unknown [id number] 2.16.840.1.019462.3.579.2.46 2 Unknown [id number] 2.16.840.1.373424.3.579.2.46 2 Unknown [id number] 2.16.840.1.459131.3.579.2.46 2 Unknown [id number] 2.16.840.1.138563.3.579.2.46 2 Unknown [id number] 2.16.840.1.485667.3.579.2.46 2 Social History Date Type Detail Facility Start: 08-25-2023 Tobacco smoking stat [facility] Unknown if ever smoked [facility] Start: 1990 Sex Assigned At Female W [facility] Start: 08-10-2024 Tobacco smoking stat [facility] Never smoked tobacco (finding) [facility] Start: 01-08-2025 End: 01-18-2025 Sex Female (finding) [facility] Medical Equipment Procedure Code Equipment Code Equipment Origin al Text Equipment Identifier Dates Blood Sugar Diagnostic (Blood Glucose Test) strip Start: 01-12-2025 Lancets [facility] Start: 01-12-2025 Blood Sugar Diagnostic (Blood Glucose [...] & Type Note Facility 03-17-2025 Progress note [facility] 03-10-2025 Radiology Diagnostic study note [facility] [address] [place], [place] [id number] OB Limited With Biometrics MR#: [id number] Acct: [id number] Name: PATRICIA PERSON Rep #: [id number] : 1990 F 34 From: Greg Baltazar MD PCP: Dr. Luigi Santos MD Status: R EG CLI Study:OB Limited With Biometrics Date of Exam : 03/09/25 Exam# [id number] Ordering Dr: Jana De Souza DO PROCEDURE: [...] of 36 weeks and 2days. Reading Location: [facility] CC: Dr. Luigi Santos MD; Dr. 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: Signed [facility] 12-16-2024 Evaluation note Diagnosis Onset Date Resolution Hypocalcemia acute December 16 9:35am acute December 16 9:35am Supervision of normal acute December 16, 2024 9:35am Gestational diabetes acute Apr2024 2:27pm Hypocalcemia acute January 11 2:27pm acute January 11 2:27pm Supervision of normal acute January 11, 2025 2:27pm Abnormal glucose deleted January 2:27pm Gestational diabetes acute 2024 2:50pm Hypocalcemia acute January 28, 2025 2:50pm acute January 28 2:50pm Supervision of normal acute January 28, 2025 2:50pm Abnormal glucose deleted January 282024 2:50pm Gestational diabetes acute 2024 1:52pm Hypocalcemia acute February 08, 2025 [...] of normal acute March 25, 2025 12:59pm [facility] Work Phone: 1(941) 829-829103-06-2025 Evaluation note* Diagnosis Onset Date Resolution Status Admit Date Hypocalcemia acute December 16, 2 025 9:35am acute December 16 9:35am Supervision of normal acut e December 16, 2024 9:35am Gestational diabetes acute Apr2024 2:27pm Hypocalcemia acute January 11 025 2:27pm acute January 11 2:27pm Supervision [...] normal acut e March 29, 2025 1:24pm [facility] Work Phone: 1(216) 596-836702-06-2025 Evaluation note* Diagnosis Onset Date Resolution Status Admit Date Hypocalcemia acute November 1:57pm acute November 18, 2024 1:57pm Supervision of normal acute November 18 1:57pm Hypocalcemia acute December 16, 2 025 9:35am acute December 16 9:35am Supervision of normal acute December 16, 2024 9:35am Abnormal glucose acute January 2:27pm Gestational diabetes acute Apr2024 2:27pm Hypocalcemia acute January 11, 2 025 2:27pm acute January 11 2:27pm Supervision of normal acute January 11, 2025 2:27pm Abnormal glucose acute January 282024 2:50pm Gestational diabetes acute Apri 2024 2:50pm Hypocalcemia acute January 28, 2025 2:50pm acute January 28 2:50pm Supervision of normal acute January 28, 2025 2:50pm Abnormal glucose acute February 082024 1:52pm Gestational diabetes acute Apri l 2024 1:52pm Hypocalcemia acute February 08, 2025 1:52pm acute February 08 1:52pm Supervision of normal acute February 08, 2025 1:52pm Abnormal glucose acute February 2:44pm Gestational diabetes acute February 25, 2025 2:44pm Hypocalcemia acute February 25 2:44pm acute February 25, 2025 2:44pm Supervision of normal acute February 25, 2025 2 :44pm [facility] Work Phone: 1(424) 473-226402-06-2025 Evaluation note* Diagnosis Onset Date Resolution Status [...] normal acute March 08, 2025 9 :55am [facility] Work Phone: 1(310) 523-504002-06-2025 Evaluation note* Diagnosis Onset Date Resolution Status [...] normal acute March 17, 2025 9 :14am [facility] Work Phone: 1(474) 834-789812-13-2024 Evaluation note* Diagnosis Onset Date Resolution Status [...] of normal acute December 16, 2024 9:35am [facility] Work Phone: 1(372) 665-155812-13-2024 Evaluation note* Diagnosis Onset Date Resolution Status [...] of normal acute January 11, 2025 2:27pm [facility] Work Phone: Evaluation note* Diagnosis Onset Date Resolution Status COVID-19 acute Preventative health care acu te [facility] Work Phone: Progress note Author Marie Dockery [facility] Note Date/Time March 17, 2025 9:44a m [facility] [address] [place] [address], [address] [place] [address] OFFICE VISIT Date of Service: 03/17/25 MR#: [id number] Acct: [id number] Name: PATRICIA PERSON Rep #: [id number] : 1990 Provider: Dr. Francis Dockery MD Age/Sex: 34/F [place] [facility] Status: Signed Intake Vital Signs 10/21/24 15:57 03/08/25 09:57 03/17/25 09:20 03/17/25 09:21 Height 5 ft 6 in 5 ft 6 in 5 ft 6 in 5 ft 6 in Weight: 154 lb BMI 24.8 BP 131/74 H Intake Visit Reasons: 37 WK OB [employer] Required: No Is patient in pain?: No [...] animals: Yes history of recent travel: Yes ([place], [place], [place], [place] (May 2024)) details: [place] (Summer 2023), [place] (Jun 2024) out of state: Yes out of country: Yes sexually active: Yes Smoking Status: Never smoker alcohol intake: never substance use type: does not use well-balanced diet: daily or most days caffeine: No eating out: rarely or never during the past year weight has: remained stable what type of physical activity do you participate in: none bj/uatsdin: Anabaptist seatbelt use: always do you feel safe at home: Yes 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 [place] scheduled. no concerns 11/18/24 -?-?-?-?-?-?-?-?-?-?-?-?- 20w [...] POC Urinalysis 2 Dip (Clinic) Today 03/17/25 0981 <Electronically signed by Marie centeno MD> Date _ Marie Dockery MD Cosigner Signature: Date (if applicable) CC: ~ [facility] Work Phone: Reason for referral (narrative)No reason for referral information availableW[facility] Work Phone: Summary Purpose Family History No Family History Records Found Relationship Condition Age at Onset Recorded Date/T [...] section and content) DATE CREATED AUTHOR 04/08/2018 [facility] ([place]) DATE CREATED AUTHOR AUTHOR'S ORGANIZ ATION 11/11/2024 [facility] DATE CREATED AUTHOR AUTHOR'S ORGANIZ ATION 04/01/2025 [facility] Care Teams (unrecognized sec tion and content) Team Status: Active Member Role Status Dates Dr. Luigi Santos MD Primary Care Provider Active Team Status: Inactive Member Role Status Dates Dr. Luigi Santos MD Primary Care Provider, Refer ring Provider Active Duncan Turk PA, PA Attending Provider Active Team Status: Inactive Member Role Status Dates Dr. Luigi Santos MD Primary Care Constantin amin, Attending Provider, Referring Provider Active Team Status: [...] 2025 End: January 04, 2025 Martha Novoa CONTROL ROOM TECHNICIAN, CONTROL ROOM TECHNICIAN-C Attending Provider Active Start: January 04, 2025 End: January 04, 2025 Martha Novoa CONTROL ROOM TECHNICIAN, CONTROL ROOM TECHNICIAN-C Referring Provider Active Start: January 04, 2025 End: January 04, 2025 Team Status: Inactive Member Role Status Dates Dr. Luigi Santos MD Primary Care Provider Active Start: January 11, 2025 End: January 11, 2025 Martha Novoa CONTROL ROOM TECHNICIAN, CONTROL ROOM TECHNICIAN-C Attending Provider Active Start: January 11, 2025 End: January 11, 2025 Martha Novoa CONTROL ROOM TECHNICIAN, CONTROL ROOM TECHNICIAN-C Referring Provider Active Start: January 11, 2025 [...] End: February 25, 2025 Dr. Jana Santiago DO Attending Provider Activ e Start: February 25, 2025 End: February 25, 2025 Team Status: Inactive Member Role Status Dates Dr. Luigi Santos MD Primary Care Provider Active Start: March 08, 2025 End: March 08, 2025 Dr. Luigi Santos MD Referring Provider Active Start: March 08, 2025 End: March 08, 2025 Martha Noova NP, CONTROL ROOM TECHNICIAN-C Attending Provider Active Start: March 08, 2025 End: March 08, 2025 Team Status: Inactive Member Role Status Dates Dr. Luigi Santos MD Primary Care Provider Active Start: March 08, 2025 End: March 08, 2025 Martha Novoa NP, CONTROL ROOM TECHNICIAN-C Attending Provider Active Start: March 08, 2025 End: March 08, 2025 Martha Novoa CONTROL ROOM TECHNICIAN, CONTROL ROOM TECHNICIAN-C Referring Provider Active Start: March 08, 2025 [...] BE BASED ON THE PRIMARY CLINICAL RECORDS. [facility] [employer] [facility]. provides no warranty or guarantee of the accuracy or completeness of information in this document.
[2025-04-01 07:59] LABS: Bedside Glucose 80 mg/dL (74-106)
--- NOTE | 2025-04-01 08:18 | PN.OBGYN_ITS ---
Subjective Subjective contractions are getting more uncomfortable but managable. Objective Data Objective Data Vital Signs: Vital Signs Temp Pulse Resp BP Pulse Ox 97.7 F L 70 16 124/72 H 98 04/01/25 07:33 04/01/25 07:31 04/01/25 07:33 04/01/25 07:31 04/01/25 03:38 Weight: 155 lb 6.814 oz Body Mass Index (BMI) 24.3 Intake & Output: Intake and Output for Last 24 Hours 03/30/25 03/31/25 04/01/25 23:59 23:59 23:59 Intake Total 499.5 / 499.5 Balance 499.5 / 499.5 Lab / Micro Data 03/31/25 19:35 Labs: Laboratory Results - last 24 hr 03/31/25 19:35: WBC 9.6, RBC 4.55, Hgb 13.4, Hct 40.0, MCV 87.9, MCH 29.5, MCHC 33.5, RDW Std Deviation 41.3, RDW Coeff of Jennifer 13.0, Plt Count 181, MPV 11.7, Immature Gran % (Auto) 0.500, Neut % (Auto) 70.3 H, Lymph % (Auto) 20.6, Florence % (Auto) 7.7, Eos % (Auto) 0.6, Baso % (Auto) 0.3, Absolute Neuts (auto) 6.8, Absolute Lymphs (auto) 1.98, Nucleated RBC % 0, Syphilis Total Ab Nonreactive, Blood Type A POSITIVE, Antibody Screen NEGATIVE 03/31/25 20:38: POC Glucose 117 H 03/31/25 21:38: POC Glucose 122 H 03/31/25 22:33: POC Glucose 108 H 04/01/25 00:12: POC Glucose 95 04/01/25 03:45: POC Glucose 77 04/01/25 07:36: POC Glucose 80 Physical Exam Resp normal respiratory effort and normal air movement GI normal to inspection, nondistended, normoactive bowel sounds Manual OB Exam: presentation cephalic, dilated 2, effaced 90 and station - 1 Skin no rashes or lesions noted Psych mental status grossly normal Assessment & Plan (1) Gestational diabetes: QUALIFIERS: Gestational diabetes mellitus control: diet-controlled Trimester: third trimester Qualified Code(s): O24.410 - Gestational diabetes mellitus in , diet controlled COMMENT: diet ocntrolled, growth US at 36 discussed IOL by 39-40 (2) Supervision of normal : QUALIFIERS: Normal : normal first T rimester: third trimester Qualified Code(s): Z34.03 - Encounter for supervision of normal first , third trimester COMMENT: PRR . , ALDAIR 04/05/25, surprise : Nir (3) : QUALIFIERS: Weeks of gestation: 39 weeks Qualified Code(s): Z 3A.39 - 39 weeks gestation of COMMENT: Neg GBS. Discussed genetic/carrier testing - declines. decline afp. normal anatomy (4) Encounter for induction of labor: COMMENT: cytotec PLAN: woodson score now 9- start pitocin per protocol may eat prior to pitocin enc ambulation
[2025-04-01] MEDS: fentaNYL-bupivacaine (epidural) 100 ML BAG EPIDURAL (11:05)
[2025-04-01 11:58] LABS: Bedside Glucose 96 mg/dL (74-106)
--- NOTE | 2025-04-01 12:27 | PCM.PN.CNM ---
Subjective Subjective comfortable with epidural Objective Data Objective Data Vital Signs: Vital Signs Temp Pulse Resp BP Pulse Ox 97.5 F L 61 16 112/63 100 04/01/25 11:16 04/01/25 12:14 04/01/25 11:24 04/01/25 12:14 04/01/25 12:08 Weight: 155 lb 6.814 oz Body Mass Index (BMI) 24.3 Intake & Output: Intake and Output for Last 24 Hours 03/30/25 03/31/25 04/01/25 23:59 23:59 23:59 Intake Total 1499.5 / 1499.5 Balance 1499.5 / 1499.5 Lab / Micro Data 03/31/25 19:35 Labs: Laboratory Results - last 24 hr 03/31/25 19:35: WBC 9.6, RBC 4.55, Hgb 13.4, Hct 40.0, MCV 87.9, MCH 29.5, MCHC 33.5, RDW Std Deviation 41.3, RDW Coeff of Jennifer 13.0, Plt Count 181, MPV 11.7, Immature Gran % (Auto) 0.500, Neut % (Auto) 70.3 H, Lymph % (Auto) 20.6, Kleberg % (Auto) 7.7, Eos % (Auto) 0.6, Baso % (Auto) 0.3, Absolute Neuts (auto) 6.8, Absolute Lymphs (auto) 1.98, Nucleated RBC % 0, Syphilis Total Ab Nonreactive, Blood Type A POSITIVE, Antibody Screen NEGATIVE 03/31/25 20:38: POC Glucose 117 H 03/31/25 21:38: POC Glucose 122 H 03/31/25 22:33: POC Glucose 108 H 04/01/25 00:12: POC Glucose 95 04/01/25 03:45: POC Glucose 77 04/01/25 07:36: POC Glucose 80 04/01/25 11:37: POC Glucose 96 Physical Exam Resp normal respiratory effort and normal air movement Effort and Inspection: able to speak in complete sentences GI normal to inspection, nondistended, normoactive bowel sounds Manual OB Exam: dilated 9, effaced 95 and station +1 Skin no rashes or lesions noted Assessment & Plan (1) Encounter for induction of labor: COMMENT: cytotec PLAN: cat 1 tracing comfortable with epidural frequent position changes anticipate (2) Gestational diabetes: QUALIFIERS: Gestational diabetes mellitus control: diet-controlled Trimester: third trimester Qualified Code(s): O24.410 - Gestational diabetes mellitus in , diet controlled COMMENT: diet ocntrolled, growth US at 36 discussed IOL by 39-40
[2025-04-01] MEDS: Lactated Ringers 1,000 ML 200 ML IV (13:07)
[2025-04-01 13:36] LABS: Bedside Glucose 80 mg/dL (74-106)
[2025-04-01 14:46] LABS: Bedside Glucose 87 mg/dL (74-106)
--- NOTE | 2025-04-01 15:21 | PCM.PN.CNM ---
Objective Data Objective Data Vital Signs: Vital Signs Temp Pulse Resp BP Pulse Ox 97.2 F L 52 L 16 97/51 L 98 04/01/25 14:19 04/01/25 14:20 04/01/25 14:19 04/01/25 14:20 04/01/25 14:19 Weight: 155 lb 6.814 oz Body Mass Index (BMI) 24.3 Intake & Output: Intake and Output for Last 24 Hours 03/30/25 03/31/25 04/01/25 23:59 23:59 23:59 Intake Total 2605.7 / 2605.7 Balance 2605.7 / 2605.7 Lab / Micro Data 03/31/25 19:35 Labs: Laboratory Results - last 24 hr 03/31/25 19:35: WBC 9.6, RBC 4.55, Hgb 13.4, Hct 40.0, MCV 87.9, MCH 29.5, MCHC 33.5, RDW Std Deviation 41.3, RDW Coeff of Jennifer 13.0, Plt Count 181, MPV 11.7, Immature Gran % (Auto) 0.500, Neut % (Auto) 70.3 H, Lymph % (Auto) 20.6, Schuyler % (Auto) 7.7, Eos % (Auto) 0.6, Baso % (Auto) 0.3, Absolute Neuts (auto) 6.8, Absolute Lymphs (auto) 1.98, Nucleated RBC % 0, Syphilis Total Ab Nonreactive, Blood Type A POSITIVE, Antibody Screen NEGATIVE 03/31/25 20:38: POC Glucose 117 H 03/31/25 21:38: POC Glucose 122 H 03/31/25 22:33: POC Glucose 108 H 04/01/25 00:12: POC Glucose 95 04/01/25 03:45: POC Glucose 77 04/01/25 07:36: POC Glucose 80 04/01/25 11:37: POC Glucose 96 04/01/25 13:10: POC Glucose 80 04/01/25 14:26: POC Glucose 87 Assessment & Plan (1) Encounter for induction of labor: COMMENT: cytotec PLAN: Plan current tracin baseline FHT: minimal variability reactive no decelerations category II tracing [place]: q3-6 Contractions reviewed tracing abnormalities since last note: pt has been pushing since 1340 with loss of variability. increased late decelerations despite corrective measures. Dr. Dockery consulted for vacuum delivery to expedite at 1502. A/P: plan for kiwi delivery.
--- NOTE | 2025-04-01 15:27 | DCINST_ITS ---
Discharge Instructions Diet Discharge Diet: No restrictions DC O2, CPAP, BIPAP needs Home O2 Discharge instructions: No Dressing / Incision Discharge Activity: May Not Drive and May Shower May resume sexual activity in: 6 weeks Weight Bearing Status: Full weight bearing Dressing / Incision Call your doctor if your incision/area has: Sudden Increased Bleeding, Increased Pain/ Swelling and Foul Smelling Discharge Call your doctor if you observe: Fever of 101 or Higher, Numbness or Tingling, Change in Color, Inability to urinate, Inability to have a bowel movement, Using more than 1 pad per hour, Shortness of breath, Dizziness, Fainting spells, Chest pain, Calf discomfort and Uncontrolled pain Follow Up Care Please Follow Up With: Marie Dockery MD When: 6 weeks , please call office to make an appointment. Congratulations on the of your baby! Test Results: Test results from this visit will be discussed in further detail at your follow- up appointment, if applicable. Discharge Plan Admission Admit Date/Time: 03/31/25 19:09 Attending Provider: Jana Santiago Primary Care Provider: Luigi Santos Discharge Orders/Prescriptions Prescriptions: No Action calcium carbonate 600 mg calcium (1,500 mg) tablet 600 mg PO DAILY Classic 28 mg iron- 800 mcg tablet 1 tab PO DAILY (DME) Blood Glucose Test Strip See Rx Instructions .MEDSUPPLY Qty: 120 5RF Rx Instructions: As directed-fasting & 2 hr post meals (DME) blood-glucose meter Misc See Rx Instructions .MEDSUPPLY Qty: 1 0RF Rx Instructions: As directed- Test fasting and 2 hours after meals (DME) lancets Misc See Rx Instructions .MEDSUPPLY Qty: 200 5RF Rx Instructions: As directed-fasting & 2 hr post meals Referrals / Follow Up: Luigi Santos MD [Primary Care Provider] -
[2025-04-01] MEDS: Oxytocin 15 Units/NS 250ml 15 UNITS/250 ML IV.SOLN 83 UNITS IV (15:29)
--- NOTE | 2025-04-01 17:05 | OB.VAGDELI_ITS ---
Assessment & Plan (1) Vacuum extraction, delivered, current hospitalization: COMMENT: SM nrfhr boy (2) Encounter for induction of labor: COMMENT: cytotec (3) Gestational diabetes: QUALIFIERS: Gestational diabetes mellitus control: diet-controlled Trimester: third trimester Qualified Code(s): O24.410 - Gestational diabetes mellitus in , diet controlled COMMENT: diet ocntrolled, growth US at 36 discussed IOL by 39-40 (4) Supervision of normal : QUALIFIERS: Normal : normal first Trimester: third trimester Qualified Code(s): Z34.03 - Encounter for supervision of normal first , third trimester COMMENT: PRR . , ALDAIR 04/05/25, surprise : Nir (5) : QUALIFIERS: Weeks of gestation: 39 weeks Qualified Code(s): Z3A.39 - 39 weeks gestation of COMMENT: Neg GBS. Discussed genetic/carrier testing - declines. decline afp. normal anatomy (6) Hypocalcemia: COMMENT: BMP checked with NOB labs Maternal Data Information ALDAIR Calculator Estimated Delivery Date Method Current WG Current Estimate 04/05/25 LMP (Certain) 39w 4d Vaginal Delivery Maternal Presentation Maternal Presentation: see assessment and plan Vaginal Delivery Information Procedure Performed: Vacuum Assisted Vaginal Delivery Station at time of placement: +3 Number of vacuum pulls: 2 Number of vacuum pop offs: 0 Surgeon/Practitioner: Marie Dockery Date of Procedure: 04/01/25 Pre-Procedure Diagnosis: see assessment and plan Post-Procedure Diagnosis: same Type of anesthesia: Epidural Estimated Blood Loss: 500 Findings Description of procedure: recurrent decels occured therefore vacuum extraction was decided upon patient counseled. vacuum applied at +3 station two pulls with two contractions no pop offs. Patient began pushing and delivered the head in the GUERA presentation. The head was delivered atraumatically and a loose nuchal cord ?2 was identified and easily reduced over the infant's head. The anterior and posterior shoulders delivered without complication followed by the rest of the and the was placed on the maternal abdomen. Delayed cord clamping was employed for approximately 60 seconds. Cord was clamped and cut and gentle traction was applied to the cord and the placenta delivered spontaneously immediately following it was noted to be intact with three-vessel cord. The perineum and vagina were inspected and was noted to have a second -degree laceration that was repaired in the usual fashion with 3-0 vicryl rapide and bilateral sulcal tears were seen and repaired in the usual fashion with 3-0 rapide . EBL was 500. Patient and infant tolerated delivery well. 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
[2025-04-01] MEDS: MENTHOL TOPICAL (18:42)
[2025-04-01] MEDS: BENZOCAINE TOPICAL (18:42)
[2025-04-01 19:25] LABS: Bedside Glucose 83 mg/dL (74-106)
[2025-04-01] MEDS: 0.9% Saline Lock 10 ML Syringe IV (19:38)
[2025-04-01] MEDS: SELF ADMINISTRATION OF MEDS 1 EACH NOTE (23:36)
[2025-04-01] MEDS: Naproxen 500 MG Tablet PO (23:36)
[2025-04-01] MEDS: Benzocaine/Lanolin/Aloe Vera 85 GM Spray 1 SPRAY TOPICAL (23:37)
[2025-04-02 03:35] VITALS: BP 109/67; PULSE 63; RESP 16; TEMP 36.6; O2SAT 98
[2025-04-02 03:44] VITALS: BP 109/67; PULSE 65
[2025-04-02] MEDS: Acetaminophen 500 MG Tablet 1000 MG PO (04:43)
[2025-04-02 04:59] LABS: Bedside Glucose 92 mg/dL (74-106)
[2025-04-02] MEDS: Naproxen 500 MG Tablet PO ×2 (08:30→16:19)
[2025-04-02 08:31] VITALS: BP 98/55; PULSE 83; RESP 16; TEMP 36.3
[2025-04-02 08:32] VITALS: BP 98/55; PULSE 83
--- NOTE | 2025-04-02 08:55 | PCM.PN.CNM ---
Subjective Subjective Patient doing well without complaints. Tolerating PO. Ambulating and voiding without difficulty. Feeding well. Denies chest pain, shortness of breath, calf pain/swelling, fevers, chills, lightheadedness. Objective Data Objective Data Vital Signs: Vital Signs Temp Pulse Resp BP Pulse Ox O2 Del Method 97.3 F L 83 16 98/55 L 98 Room Air 04/02/25 08:31 04/02/25 08:32 04/02/25 08:31 04/02/25 08:32 04/02/25 03:35 04/02/25 08:31 Oxygen Delivery Method Room Air Weight: 155 lb 6.814 oz Body Mass Index (BMI) 24.3 Intake & Output: Intake and Output for Last 24 Hours 03/31/25 04/01/25 04/02/25 23:59 23:59 23:59 Intake Total 2972.37 / 2972.37 Output Total 1300 / 1300 Balance 1672.37 / 1672.37 Lab / Micro Data 03/31/25 19:35 Labs: Laboratory Results - last 24 hr 04/01/25 11:37: POC Glucose 96 04/01/25 13:10: POC Glucose 80 04/01/25 14:26: POC Glucose 87 04/01/25 16:13: POC Glucose 83 04/02/25 04:39: POC Glucose 92 Physical Exam Const alert and oriented x3 Chest inspection of chest normal Resp normal respiratory effort and normal air movement Effort and Inspection: able to speak in complete sentences Cardio regular rate and regular rhythm GI normal to inspection, nondistended, normoactive bowel sounds Narrative: fundus firm, below u, normal lochia Extremity normal to inspection, full ROM and no calf tenderness Skin no rashes or lesions noted Psych mental status grossly normal Assessment & Plan (1) Vacuum extraction, delivered, current hospitalization: COMMENT: nrfhr boy (2) Gestational diabetes: QUALIFIERS: Gestational diabetes mellitus control: diet-controlled Trimester: third trimester Qualified Code(s): O24.410 - Gestational diabetes mellitus in , diet controlled COMMENT: diet ocntrolled, growth US at 36 discussed IOL by 39-40 PLAN: checks per protocol PLAN: Plan s/p PPD # 1 1. routine post delivery care 2. breast feeding- support given 3. rh positive 4. rubella immune 5. desires d/c home today
[2025-04-02 12:45] VITALS: BP 105/50; PULSE 83; RESP 16
== END 2025-04-02 16:55 | disposition home or self-care (01) | DRG 807 ==
PROVIDERS: Obstetrics & Gynecology; Admitting Provider Obstetrics & Gynecology; PCP Internal Medicine; Referring Provider Obstetrics & Gynecology; Visit Provider Obstetrics & Gynecology
DX: O24.420 Gestational diabetes mellitus in childbirth, diet controlled (principal); Z37.0 Single live birth; E83.51 Hypocalcemia; O99.284 Endocrine, nutritional and metabolic diseases complicating childbirth; O69.81X0 Labor and delivery complicated by cord around neck, without compression, not applicable or unspecified; O70.1 Second degree perineal laceration during delivery; O76 Abnormality in fetal heart rate and rhythm complicating labor and delivery; Z3A.39 39 weeks gestation of pregnancy
CPT/HCPCS: 59025; 59050; 82962; 85025; 86780; 86850; 86900; 86901; 99221; A4216; G0378